=== PATIENT | female | born 1940 | race Caucasian/White ===

== ENCOUNTER 2021-11-18 09:02 | Inpatient (IN) | payer MEDICARE ==
[2021-11-18] VITALS (18 sets, daily range): BP systolic 84–123; BP diastolic 38–47
[~2021-11-18] VITALS: Ht 160 cm; Wt 73.6 kg
[~2021-11-18 09:02] MED LIST: etomidate 2mg/ml inj. ONE; sod chloride 0.9% 10ml flush syringe IV ONE
[2021-11-18 09:49] LABS: BASOPHILS # (AUTO) 0.1 X10'3 (0-0.2); BASOPHILS % (AUTO) 0.6 % (0-1); EOSINOPHILS % (AUTO) 0.1 % (0-6); HEMOGLOBIN 12.8 g/dl (12.0-16.0); LYMPHOCYTES # (AUTO) 0.4 X10'3 (1.1-4.8); LYMPHOCYTES % (AUTO) 1.9 % (21-51); MEAN CORPUSCULAR HEMOGLOBIN 27.7 PG (27.0-31.0); MEAN CORPUSCULAR HGB CONC 32.8 g/dL (33.0-36.5); MEAN CORPUSCULAR VOLUME 84.4 FL (78-98); MEAN PLATELET VOLUME 8.5 FL (7.4-10.4); MONOCYTES # (AUTO) 0.5 X10'3 (0-0.9); MONOCYTES % (AUTO) 2.6 % (2-12); NEUTROPHILS # (AUTO) 17.7 X10'3 (1.8-7.7); NEUTROPHILS % (AUTO) 94.8 % (42-75); PLATELET COUNT 199 X10'3 (140-440); RED BLOOD COUNT 4.62 X10'6 (4.20-5.60); RED CELL DISTRIBUTION WIDTH 15.7 % (11.5-14.5); WHITE BLOOD COUNT 18.7 X10'3 (4.5-11.0)
[2021-11-18 09:50] LABS: CLARITY,URINE CLOUDY (Clear); COLOR,URINE YELLOW (Yellow); GLUCOSE, URINE 250 mg/dl (Neg); KETONES,URINE TRACE mg/dl (Neg); LEUKOCYTE ESTERASE ,URINE MODERATE (Neg); NITRITES, URINE NEGATIVE (Neg); OCCULT BLOOD,URINE MODERATE (Neg); PROTEIN,URINE 100 mg/dl (Neg); UROBILINOGEN,URINE 0.2 E.U/dL (0.2-1.0)
[2021-11-18 09:52] LABS: UA COLLECTION TYPE CLN CATCH MIDSTREAM
[2021-11-18] MEDS ORDERED: morphine 4 MG/ML inj SYRINge IV ONE ×2 (09:55→11:35)
[2021-11-18] MEDS ORDERED: ondansetron/PF 4mg/2ml inj IV ONE (09:55)
[2021-11-18] MEDS ORDERED: normal saline 1000ml 1,000 ML IV ONE (09:55)
[2021-11-18 09:58] LABS: BACTERIA,URINE 1+ /HPF (Neg); MUCUS STRANDS FEW /LPF (Neg); SQUAMOUS EPITHELIAL CELL,UR MODERATE /LPF (FEW); WBC CLUMPS,URINE MODERATE /HPF (NEGATIVE); WBC,URINE TNTC /HPF (0-4)
[2021-11-18 09:59] LABS: TRANSITIONAL EPI CELLS,URINE FEW /HPF
[2021-11-18 10:18] LABS: ALANINE AMINOTRANSFERASE 25 U/L (12-78); ALBUMIN 3.8 G/DL (3.4-5.0); ALKALINE PHOSPHATASE 110 IU/L (46-116); ANION GAP 12 (8-16); ASPARTATE AMINO TRANSFERASE 35 U/L (10-37); BILIRUBIN,TOTAL 0.5 MG/DL (0.1-1.0); BLOOD UREA NITROGEN 16 MG/DL (7-18); BUN/CREATININE RATIO 17.2 (6.6-38.0); CALCIUM 9.2 MG/DL (8.5-10.1); CHLORIDE 102 MMOL/L (99-107); CREATININE 0.93 MG/DL (0.40-0.90); ETHANOL < 0.010 GM/DL (0.0-0.010); GLUCOSE 351 MG/DL (70-104); LIPASE 192 U/L (73-393); MAGNESIUM 1.6 MG/DL (1.5-2.4); POTASSIUM 3.8 MMOL/L (3.5-5.1); SODIUM 136 MMOL/L (135-145); TOTAL CARBON DIOXIDE 21.8 MMOL/L (24-32); TOTAL PROTEIN 7.8 G/DL (6.4-8.2); eGFR 58 ML/MIN
[2021-11-18] MEDS ORDERED: normal saline 1000ML IV soln IV ONE (10:25)
[2021-11-18] MEDS ORDERED: CefTRIAXone 2gm/NS 100ml IVPB 100 ML IV ONE (10:25)
[2021-11-18 10:27] LABS: ANISOCYTOSIS 1+; PLATELET ESTIMATE NORMAL; TOTAL CELLS COUNTED 100
--- NOTE | 2021-11-18 12:00 | NUR ---
Note samreen in EDM - 11/18/21 at 1231 by FARRAH Patient Oxygen saturation decreased to 68% on 2 L via NC with a good wave form with labored breathing, she became tachycardic at 130 beats/min. Patient lung sounds crackles bilaterally audible at doorway. Patient had received 2 L NS bolus for sepsis protocol. Jazmin Falcon NP in room with patient for assessment. NS bolus discontinued at this time.
--- NOTE | 2021-11-18 12:20 | NUR ---
Patient Oxygen saturation decreased to 68% on 2 L via NC with a good wave form with labored breathing, she became tachycardic at 130 beats/min. Patient lung sounds crackles bilaterally audible at doorway. Patient had received 2 L NS bolus for sepsis protocol. Jazmin Falcon PAPER MILL MANAGER in room with patient for assessment. NS bolus discontinued at this time.
--- NOTE | 2021-11-18 12:20 | NUR ---
Stopped IVF bolus and maintanace fluid. Total opdsacv=[id number].
--- NOTE | 2021-11-18 12:22 | NUR ---
Verbal orders placed for Bipap, ABG, ProBNP, Lasix 20 mg IVP one now, Ativan 1 mg IVP once now for anxiety when initiating Bipap. Per Ezekiel BELL. RT paged.
[2021-11-18] MEDS ORDERED: furosemide 10 MG/1 ML 10ml inj IV ONE (12:25)
[2021-11-18] MEDS ORDERED: LORazepam 2 mg/ml vial IV ONE (12:25)
[2021-11-18] MEDS ORDERED: morphine 2 MG/ML inj. syringe IV ONE (12:40)
[2021-11-18] MEDS ORDERED: nitroGLYCERIN 1gm ointment UD TP ONE (12:40)
[2021-11-18 12:57] LABS: ABG BASE EXCESS -14.6 mmol/L (-2.0-2.0); ABG HCO3 17.6 mmol/L (22.0-26.0); ABG OXYGEN SATURATION 98.4 % (94-97); ABG PCO2 (T) 70.4 mmHg (32.0-45.0); ABG PO2 (T) 169.8 mmHg (75.0-100.0); ALLEN'S TEST POSITIVE; FCOHb 0.6 % (0.0-3.9); FMetHb 0.3 % (0.0-1.5); FO2Hb 97.5 % (94-97); RESPIRATORY RATE 16 b/min
--- NOTE | 2021-11-18 13:20 | NUR ---
NTG paste removed from Chest wall due to low b/p.
[2021-11-18] MEDS ORDERED: propofol 10mg/ml 20ml vial IV ONE (13:25)
[2021-11-18] MEDS ORDERED: etomidate 2mg/ml inj. IV ONE (13:25)
[2021-11-18] MEDS ORDERED: succinylcholine 20mg/ml inj IV ONE (13:30)
[2021-11-18 13:32] LABS: ALBUMIN 3.5 G/DL (3.4-5.0); ANION GAP 15 (8-16); BLOOD UREA NITROGEN 15 MG/DL (7-18); BUN/CREATININE RATIO 12.5 (6.6-38.0); CALCIUM 8.2 MG/DL (8.5-10.1); CHLORIDE 104 MMOL/L (99-107); GLUCOSE 312 MG/DL (70-104); POTASSIUM 3.6 MMOL/L (3.5-5.1); SODIUM 139 MMOL/L (135-145); TOTAL CARBON DIOXIDE 19.7 MMOL/L (24-32); eGFR 43 ML/MIN
[2021-11-18] MEDS ORDERED: Neutra Phos packet PO PRN (13:40)
[2021-11-18] MEDS ORDERED: sodium phosphate inj. 15 MMOL in dextrose 5%-water 250 ML IV PRN (13:40)
[2021-11-18] MEDS ORDERED: magnesium hydroxide 30ml (MOM) UD suspension PO PRN (13:40)
[2021-11-18] MEDS ORDERED: potassium Cl 20 mEq SR tablet PO PRN ×2 (13:40)
[2021-11-18] MEDS ORDERED: sodium phosphate inj. 30 MMOL in dextrose 5%-water 250 ML IV PRN (13:40)
[2021-11-18] MEDS ORDERED: acetaminophen 325mg tablet PO PRN ×2 (13:40)
[2021-11-18] MEDS ORDERED: NOREPINEPHRINE BITARTRATE/D5W 250 ML IV PRN (13:40)
[2021-11-18] MEDS ORDERED: ondansetron/PF 4mg/2ml inj IV PRN (13:40)
[2021-11-18] MEDS: propofol 1000mg/100ml bottle 100 ML IV PRN (13:40)
[2021-11-18] MEDS ORDERED: morphine 4 MG/ML inj SYRINge IV PRN (13:40)
[2021-11-18] MEDS ORDERED: ipratropium/albuterol 3ml nebule NEB PRN (13:40)
[2021-11-18] MEDS ORDERED: morphine 2 MG/ML inj. syringe IV PRN (13:40)
[2021-11-18 14:27] LABS: PHOSPHORUS 4.1 MG/DL (2.3-4.5)
[2021-11-18 14:33] LABS: ABG BASE EXCESS -14.8 mmol/L (-2.0-2.0); ABG HCO3 12.1 mmol/L (22.0-26.0); ABG OXYGEN SATURATION 92.8 % (94-97); ABG PO2 (T) 77.5 mmHg (75.0-100.0); ALLEN'S TEST POSITIVE; FCOHb 0.8 % (0.0-3.9); FMetHb 0.2 % (0.0-1.5); FO2Hb 91.9 % (94-97); PEEP 8 cm H2O; RESPIRATORY RATE 20 b/min; TIDAL VOLUME 450 mL; TOTAL HEMOGLOBIN 14.3 G/dl (12.0-16.0)
[2021-11-18] MEDS: heparin, porcine 5000 units/ml vial SQ SCH (16:00)
[2021-11-18] MEDS: cefepime inj. 1 GM in normal saline 100ml IV soln 100 ML IV SCH (16:39)
[2021-11-18] MEDS ORDERED: NORepinephrine 8mg/ 250ml NS 250 ML IV ONE (16:45)
[2021-11-18] MEDS ORDERED: NORepinephrine inj. 8 MG in dextrose 5%-water 242 ML IV SCH (16:55)
[2021-11-18] MEDS ORDERED: iohexol 300 MG/1 ML 50ml polymer ONE (17:01)
[2021-11-18] MEDS ORDERED: rocuronium 10mg/ml inj IV ONE (18:00)
--- NOTE | 2021-11-18 18:30 | NUR ---
Patient in room ICU 2040. I have received report from MEÑO Joaquin and had the opportunity to ask questions and assume patient care.
[2021-11-18] MEDS ORDERED: acetaminophen 325mg/10.15ml oral unit dose solution PO PRN (19:05)
[2021-11-18 19:08] LABS: CLARITY,URINE CLOUDY (Clear); COLOR,URINE YELLOW (Yellow); GLUCOSE, URINE NEGATIVE (Neg); KETONES,URINE NEGATIVE (Neg); LEUKOCYTE ESTERASE ,URINE MODERATE (Neg); NITRITES, URINE NEGATIVE (Neg); OCCULT BLOOD,URINE MODERATE (Neg); PROTEIN,URINE 100 mg/dl (Neg); UROBILINOGEN,URINE 0.2 E.U/dL (0.2-1.0)
[2021-11-18 19:12] LABS: UA COLLECTION TYPE OTHER
[2021-11-18 19:24] LABS: BACTERIA,URINE FEW /HPF (Neg); RBC,URINE 20-50 /HPF (0-2); SQUAMOUS EPITHELIAL CELL,UR FEW /LPF (FEW); WBC,URINE TNTC /HPF (0-4)
[2021-11-18 19:25] LABS: WBC CLUMPS,URINE MODERATE /HPF (NEGATIVE)
[2021-11-18 19:44] LABS: MEAN CORPUSCULAR HEMOGLOBIN 27.5 PG (27.0-31.0); MEAN PLATELET VOLUME 9.7 FL (7.4-10.4)
[2021-11-18 19:45] LABS: HEMATOCRIT 38.7 % (35.0-45.0); HEMOGLOBIN 12.3 g/dl (12.0-16.0); MEAN CORPUSCULAR HGB CONC 31.9 g/dL (33.0-36.5); MEAN CORPUSCULAR VOLUME 86.2 FL (78-98); PLATELET COUNT 165 X10'3 (140-440); RED BLOOD COUNT 4.49 X10'6 (4.20-5.60); RED CELL DISTRIBUTION WIDTH 15.7 % (11.5-14.5)
[2021-11-18 19:49] LABS: APTT 37 SECONDS (22-32)
[2021-11-18 19:50] LABS: WHITE BLOOD COUNT 32.9 X10'3 (4.5-11.0)
[2021-11-18 19:51] LABS: ALANINE AMINOTRANSFERASE 23 U/L (12-78); ALBUMIN 2.6 G/DL (3.4-5.0); ALBUMIN/GLOBULIN RATIO 0.8 (1.1-1.5); ALKALINE PHOSPHATASE 109 IU/L (46-116); ANION GAP 15 (8-16); ASPARTATE AMINO TRANSFERASE 43 U/L (10-37); BILIRUBIN,TOTAL 0.5 MG/DL (0.1-1.0); BLOOD UREA NITROGEN 21 MG/DL (7-18); BUN/CREATININE RATIO 12.9 (6.6-38.0); CALCIUM 7.5 MG/DL (8.5-10.1); CHLORIDE 109 MMOL/L (99-107); CREATININE 1.63 MG/DL (0.40-0.90); GLUCOSE 232 MG/DL (70-104); POTASSIUM 3.9 MMOL/L (3.5-5.1); SODIUM 139 MMOL/L (135-145); eGFR 30 ML/MIN
[2021-11-18 19:53] LABS: TOTAL CARBON DIOXIDE 14.9 MMOL/L (24-32)
[2021-11-18 19:58] LABS: MAGNESIUM 1.4 MG/DL (1.5-2.4)
[2021-11-18] MEDS ORDERED: vancomycin/NS 1 GM ADD-VANTAGE 250 ML IV SCH (20:00)
[2021-11-18 20:20] LABS: ABG BASE EXCESS -13.5 mmol/L (-2.0-2.0); ABG HCO3 12.2 mmol/L (22.0-26.0); ABG PCO2 (T) 32.1 mmHg (32.0-45.0); ABG PO2 (T) 66.4 mmHg (75.0-100.0); FCOHb 0.3 % (0.0-3.9); FMetHb 0.4 % (0.0-1.5); FO2Hb 87.4 % (94-97); PATIENT TEMPERATURE 39.8; PEEP 8 cm H2O; RESPIRATORY RATE 16 b/min; TIDAL VOLUME 450 mL; TOTAL HEMOGLOBIN 13.3 G/dl (12.0-16.0)
[2021-11-18] MEDS ORDERED: furosemide 40mg/4ml inj IV ONE (20:55)
[2021-11-18] MEDS ORDERED: albumin (Human) 5% 250ml 250 ML IV ONE (20:55)
--- NOTE | 2021-11-18 21:04 | NUR ---
Tele MD called with all critical values and xray results, orders received.
[2021-11-18] MEDS: sennosides/docusate sodium tablet PO SCH (21:06)
[2021-11-18] MEDS: normal saline 1000ml 1,000 ML IV SCH (21:09)
[2021-11-18 21:28] LABS: ANISOCYTOSIS 1+; PLATELET ESTIMATE NORMAL; TOTAL CELLS COUNTED 100
[2021-11-18] MEDS: NORepinephrine 8mg/ 250ml NS 250 ML IV PRN (22:15)
[2021-11-18] MEDS: sodium bicarbonate (8.4%) inj. 150 MEQ in dextrose 5%-water 1,000 ML IV SCH (22:15)
[2021-11-19] VITALS (35 sets, daily range): BP systolic 84–122; BP diastolic 35–47
[2021-11-19] MEDS: heparin, porcine 5000 units/ml vial SQ SCH ×3 (00:32→16:25)
[2021-11-19] MEDS: propofol 1000mg/100ml bottle 100 ML IV PRN (00:39)
[2021-11-19] MEDS: cefepime inj. 1 GM in normal saline 100ml IV soln 100 ML IV SCH (00:53)
[2021-11-19] MEDS: normal saline 1000ml 1,000 ML IV SCH ×2 (03:00→16:26)
[2021-11-19] MEDS: NORepinephrine 8mg/ 250ml NS 250 ML IV PRN ×3 (03:11→09:02)
[2021-11-19 03:16] LABS: BASOPHILS # (AUTO) 0.1 X10'3 (0-0.2); BASOPHILS % (AUTO) 0.2 % (0-1); EOSINOPHILS % (AUTO) 0 % (0-6); HEMATOCRIT 34.1 % (35.0-45.0); HEMOGLOBIN 10.7 g/dl (12.0-16.0); LYMPHOCYTES # (AUTO) 0.9 X10'3 (1.1-4.8); LYMPHOCYTES % (AUTO) 2.2 % (21-51); MEAN CORPUSCULAR HGB CONC 31.4 g/dL (33.0-36.5); MEAN PLATELET VOLUME 10.5 FL (7.4-10.4); MONOCYTES # (AUTO) 1.9 X10'3 (0-0.9); MONOCYTES % (AUTO) 4.4 % (2-12); NEUTROPHILS # (AUTO) 40.6 X10'3 (1.8-7.7); NEUTROPHILS % (AUTO) 93.2 % (42-75); PLATELET COUNT 105 X10'3 (140-440); RED BLOOD COUNT 3.97 X10'6 (4.20-5.60)
[2021-11-19 03:17] LABS: WHITE BLOOD COUNT 43.5 X10'3 (4.5-11.0)
[2021-11-19 03:26] LABS: ALBUMIN 2.6 G/DL (3.4-5.0); ANION GAP 20 (8-16); BLOOD UREA NITROGEN 25 MG/DL (7-18); BUN/CREATININE RATIO 11.5 (6.6-38.0); CALCIUM 7.5 MG/DL (8.5-10.1); CHLORIDE 106 MMOL/L (99-107); CREATININE 2.17 MG/DL (0.40-0.90); GLUCOSE 186 MG/DL (70-104); PHOSPHORUS 3.9 MG/DL (2.3-4.5); POTASSIUM 3.7 MMOL/L (3.5-5.1); SODIUM 140 MMOL/L (135-145); TRIGLYCERIDES 256 MG/DL (20-135); eGFR 22 ML/MIN
[2021-11-19 03:28] LABS: TOTAL CARBON DIOXIDE 14.3 MMOL/L (24-32)
[2021-11-19 03:29] LABS: ABG BASE EXCESS -13.2 mmol/L (-2.0-2.0); ABG HCO3 11.7 mmol/L (22.0-26.0); ABG OXYGEN SATURATION 94.9 % (94-97); ABG PCO2 (T) 26.4 mmHg (32.0-45.0); ABG PO2 (T) 84.4 mmHg (75.0-100.0); FCOHb 0.3 % (0.0-3.9); FMetHb 0.2 % (0.0-1.5); FO2Hb 94.4 % (94-97); PATIENT TEMPERATURE 38.3; PEEP 10 cm H2O; RESPIRATORY RATE 16 b/min; TIDAL VOLUME 450 mL; TOTAL HEMOGLOBIN 11.6 G/dl (12.0-16.0)
[2021-11-19] MEDS: magnesium 4gm in 100ml NS 100 ML IV PRN (03:37)
--- NOTE | 2021-11-19 03:40 | NUR ---
Tele MD notified of worsening pneumo, he ordered a chest tube, he will call ER Doc to see if he is willing to put a chest tube in.
[2021-11-19] MEDS ORDERED: sodium bicarbonate (8.4%) 1 mEq/ml syringe IV ONE ×3 (05:05→12:15)
[2021-11-19 05:13] LABS: ANISOCYTOSIS 1+; PLATELET ESTIMATE DECREASED; POLYCHROMASIA FEW; TOTAL CELLS COUNTED 100
[2021-11-19] MEDS ORDERED: fentaNYL/PF 50MCG/1 ML 2ML syringe ONE (05:53)
[2021-11-19] MEDS ORDERED: midazolam 1 mg/ML 2ml injection ONE (05:53)
[2021-11-19] MEDS ORDERED: midazolam 1 mg/ML 2ml injection IV ONE ×3 (06:05→06:45)
[2021-11-19] MEDS ORDERED: normal saline 1000ml 1,000 ML IV ONE (06:30)
--- NOTE | 2021-11-19 06:30 | NUR ---
Patient in room ICU 2040. I have received report from Bobbi WILDER and had the opportunity to ask questions and assume patient care.
[2021-11-19] MEDS ORDERED: fentaNYL/PF 50MCG/1 ML 2ML syringe IV PRN (06:40)
[2021-11-19] MEDS ORDERED: FENTANYL CITRATE/D5W/PF 100 ML IV PRN (06:40)
[2021-11-19] MEDS ORDERED: fentaNYL/PF 50MCG/1 ML 2ML syringe IV ONE (06:45)
[2021-11-19] MEDS ORDERED: FENTANYL-0.9 % NACL/PF 100 ML IV PRN (06:48)
--- NOTE | 2021-11-19 06:53 | NUR ---
Problems reprioritized. Patient report given, questions answered & plan of care reviewed with MEÑO Herrera.
[2021-11-19] MEDS: midazolam 100mg in NS 100ml 100 ML IV PRN (06:54)
[2021-11-19] MEDS: FENTANYL-0.9 % NACL/PF 100 ML IV PRN ×2 (06:54→23:01)
[2021-11-19] MEDS ORDERED: pantoprazole 40mg Tablet.DR PO SCH (07:30)
[2021-11-19] MEDS: K and/or MAG REPLACEMENT MC SCH (08:00)
[2021-11-19] MEDS ORDERED: meropenem inj 1 GM in normal saline 100ml IV soln 100 ML IV SCH (08:00)
--- NOTE | 2021-11-19 08:58 | NUR ---
Pt with decreasing spo2. pt repositioned, suctioned, without positive result. Dr. Adrian at bedside. new order for stat cxr. stat cxr revealed return of pneumothorax and chest tube needing repositioning. Dr. Adrian immediately to bedside to adjust chest tube. post adjustment CXR ordered. Radiology paged. Addendum: 11/19/21 at 0918 by Mary Elder RN CXR revealed need for tube to be inserted additionally. Dr. Adrian at bedside, performed chest tube adjustment. F/U CXR done. tube with adequate positioning. cxt sutured. measures 12 at the skin.
[2021-11-19] MEDS: magnesium 2GM in 50ml NS 50 ML IV PRN (09:02)
[2021-11-19] MEDS: vasopressin inj. 40 UNIT in dextrose 5%-water 50ml 38 ML IV SCH ×2 (09:03→14:27)
[2021-11-19] MEDS: sodium bicarbonate (8.4%) inj. 150 MEQ in dextrose 5%-water 1,000 ML IV SCH (09:24)
[2021-11-19] MEDS ORDERED: insulin Lispro (HumaLOG) vial - multi-dose SQ SCH (09:55)
[2021-11-19] MEDS ORDERED: dextrose 50%-water 50ml dispensing syringe IV PRN ×2 (09:55)
[2021-11-19] MEDS ORDERED: DEXTROSE 15 GM of carb/4 tabs (each vial/BOTTLE has 4 tablets) PO PRN ×2 (09:55)
[2021-11-19] MEDS: NORepinephrine inj. 32 MG in normal saline 250ml IV soln 218 ML IV SCH ×2 (10:40→20:35)
[2021-11-19] MEDS: pantoprazole 40MG/NS 100ML BAG 100 ML IV SCH (10:40)
[2021-11-19] MEDS ORDERED: NO HOME MEDS (11:09)
--- NOTE | 2021-11-19 11:18 | NUR ---
TF Consult: Pt admitted w/ metabolic encephalopathy, septic shock, acute respiratory failure, and hydronephrosis per EMR. Pt is mechanically ventilated, and has an OG tube per RN at rounds. See TF recs below. Noted pt currently receiving Sodium Bicarbonate/Dextrose at 100 mL/hr providing 408 kcal/day. Discussed w/ RN if possible to change to non-dextrose containing fluid as pt will be starting TF. Pt LBM not documented per physical assessment, though is receiving routine senna per EMR. Will continue to follow for TF tolerance and adjustment needs. Recommendations: 1. Continuous TF per MD using Vital AF at 65 ml/hr to provide 1560mL volume, 1872 kcals, 117g protein, and 1265 free water 2. Additional water flush 100mL Q4H; monitor serum Na 3. PALB Q / 4. Daily wts 5. Routine bowel care 6. Advance to Regular diet upon extubation; consider BSS Addendum: 11/19/21 at [address] I have reviewed assessment by risk management intern Addendum: 11/19/21 at [address] Amended: Links added.
[2021-11-19] MEDS ORDERED: sodium bicarbonate (8.4%) inj. 150 MEQ in sodium chloride 0.45% 850 ML IV SCH (11:50)
[2021-11-19 11:57] LABS: ABG BASE EXCESS -12.5 mmol/L (-2.0-2.0); ABG HCO3 13.3 mmol/L (22.0-26.0); ABG OXYGEN SATURATION 87.5 % (94-97); ABG PCO2 (T) 31.4 mmHg (32.0-45.0); ABG PO2 (T) 62.2 mmHg (75.0-100.0); FCOHb 0.3 % (0.0-3.9); FMetHb 0.2 % (0.0-1.5); FO2Hb 87.1 % (94-97); PATIENT TEMPERATURE 37.9; PEEP 5 cm H2O; RESPIRATORY RATE 16 b/min; TIDAL VOLUME 450 mL; TOTAL HEMOGLOBIN 10.9 G/dl (12.0-16.0)
[2021-11-19] MEDS ORDERED: ringers solution, lacted 1,000 ML IV ONE ×2 (12:10→17:35)
[2021-11-19] MEDS: sodium bicarbonate (8.4%) inj. 150 MEQ in sodium chloride 0.45% 1,000 ML IV SCH ×3 (13:13)
[2021-11-19 13:37] LABS: ALBUMIN 1.9 G/DL (3.4-5.0); ANION GAP 20 (8-16); BLOOD UREA NITROGEN 30 MG/DL (7-18); BUN/CREATININE RATIO 12.4 (6.6-38.0); CALCIUM 6.9 MG/DL (8.5-10.1); CHLORIDE 105 MMOL/L (99-107); CREATININE 2.42 MG/DL (0.40-0.90); GLUCOSE 234 MG/DL (70-104); MAGNESIUM 3.2 MG/DL (1.5-2.4); PHOSPHORUS 4.4 MG/DL (2.3-4.5); POTASSIUM 3.9 MMOL/L (3.5-5.1); SODIUM 143 MMOL/L (135-145); TOTAL CARBON DIOXIDE 17.7 MMOL/L (24-32); eGFR 19 ML/MIN
[2021-11-19] MEDS: insulin regular, human U-100 3ml vial - multi-dose SQ SCH ×2 (14:31→21:42)
[2021-11-19 15:30] LABS: PREALBUMIN 13.3 MG/DL (19-36)
[2021-11-19] MEDS: acetaminophen 650mg rectal suppository RC PRN (16:27)
--- NOTE | 2021-11-19 17:31 | NUR ---
Called Dr. Adrian with critical lactic Acid: 8.3 new orders received: 1Lbolus GUS d/c NS at 75. start LR @ 125. get ionized calcium repeat lactic acid at 0300 with morning labs. Addendum: 11/19/21 at 1743 by Mary Elder RN pt's daughter Anny [phone] called and updated.
[2021-11-19] MEDS ORDERED: vasopressin inj. 40 UNIT in normal saline 50ml IV soln 38 ML IV SCH (18:13)
--- NOTE | 2021-11-19 18:30 | NUR ---
Problems reprioritized. Patient report given, questions answered & plan of care reviewed with Donna WILDER.
[2021-11-19] MEDS: ringers solution, lacted 1,000 ML IV SCH (18:50)
[2021-11-19] MEDS: meropenem inj 500 MG in normal saline 100ml IV soln 100 ML IV SCH (20:34)
[2021-11-19] MEDS: hydrocortisone sod succ/PF 100mg/2ml inj. IV SCH (20:34)
[2021-11-19] MEDS: sennosides/docusate sodium tablet PO SCH (20:34)
[2021-11-19] MEDS: insulin glargine (Lantus) pen - multi-dose SQ SCH (21:40)
[2021-11-20] VITALS (42 sets, daily range): BP systolic 87–140; BP diastolic 34–68
[2021-11-20] MEDS: heparin, porcine 5000 units/ml vial SQ SCH ×4 (00:31→16:00)
[2021-11-20] MEDS: ringers solution, lacted 1,000 ML IV SCH ×3 (01:35→17:40)
[2021-11-20] MEDS: acetaminophen 650mg rectal suppository RC PRN ×2 (01:41→17:39)
[2021-11-20] MEDS: hydrocortisone sod succ/PF 100mg/2ml inj. IV SCH ×4 (02:07→20:00)
[2021-11-20 02:36] LABS: BASOPHILS # (AUTO) 0.1 X10'3 (0-0.2); BASOPHILS % (AUTO) 0.2 % (0-1); EOSINOPHILS # (AUTO) 0.2 X10'3 (0-0.9); EOSINOPHILS % (AUTO) 0.6 % (0-6); HEMOGLOBIN 9.3 g/dl (12.0-16.0); LYMPHOCYTES # (AUTO) 0.7 X10'3 (1.1-4.8); LYMPHOCYTES % (AUTO) 2.6 % (21-51); MEAN CORPUSCULAR HEMOGLOBIN 27.2 PG (27.0-31.0); MEAN CORPUSCULAR HGB CONC 32.2 g/dL (33.0-36.5); MEAN CORPUSCULAR VOLUME 84.7 FL (78-98); MEAN PLATELET VOLUME 10.5 FL (7.4-10.4); MONOCYTES # (AUTO) 1.3 X10'3 (0-0.9); MONOCYTES % (AUTO) 4.5 % (2-12); NEUTROPHILS # (AUTO) 25.9 X10'3 (1.8-7.7); NEUTROPHILS % (AUTO) 92.1 % (42-75); PLATELET COUNT 79 X10'3 (140-440); RED BLOOD COUNT 3.43 X10'6 (4.20-5.60); RED CELL DISTRIBUTION WIDTH 16.1 % (11.5-14.5)
[2021-11-20] MEDS: insulin regular, human U-100 3ml vial - multi-dose SQ SCH ×4 (02:44→21:41)
[2021-11-20 02:53] LABS: ABG BASE EXCESS 1.2 mmol/L (-2.0-2.0); ABG HCO3 25.4 mmol/L (22.0-26.0); ABG OXYGEN SATURATION 92.1 % (94-97); ABG PCO2 (T) 40.9 mmHg (32.0-45.0); ABG PO2 (T) 68.9 mmHg (75.0-100.0); FCOHb 0.2 % (0.0-3.9); FMetHb 0.2 % (0.0-1.5); FO2Hb 91.7 % (94-97); PATIENT TEMPERATURE 38.1; PEEP 8 cm H2O; RESPIRATORY RATE 16 b/min; TIDAL VOLUME 450 mL; TOTAL HEMOGLOBIN 10.7 G/dl (12.0-16.0)
[2021-11-20 02:53] LABS: WHITE BLOOD COUNT 28.2 X10'3 (4.5-11.0)
[2021-11-20 03:00] LABS: GLUCOSE 214 MG/DL (70-104); SODIUM 141 MMOL/L (135-145)
[2021-11-20 03:01] LABS: ANION GAP 14 (8-16); BLOOD UREA NITROGEN 36 MG/DL (7-18); BUN/CREATININE RATIO 15.5 (6.6-38.0); CALCIUM 6.9 MG/DL (8.5-10.1); CHLORIDE 104 MMOL/L (99-107); CREATININE 2.33 MG/DL (0.40-0.90); MAGNESIUM 2.8 MG/DL (1.5-2.4); PHOSPHORUS 4.9 MG/DL (2.3-4.5); TOTAL CARBON DIOXIDE 23.2 MMOL/L (24-32); eGFR 20 ML/MIN
[2021-11-20 03:09] LABS: POTASSIUM 4.4 MMOL/L (3.5-5.1)
[2021-11-20 04:03] LABS: TOTAL CELLS COUNTED 100
[2021-11-20 04:04] LABS: ANISOCYTOSIS 1+; PLATELET ESTIMATE DECREASED; POLYCHROMASIA FEW
[2021-11-20] MEDS: vasopressin inj. 40 UNIT in normal saline 50ml IV soln 38 ML IV SCH ×2 (04:05→13:44)
[2021-11-20] MEDS: CALCIUM GLUC 1gm/50ml NACL,iso 50 ML IV SCH ×2 (05:51→06:59)
--- NOTE | 2021-11-20 06:30 | NUR ---
Patient in room ICU 2040. I have received report from Donna WILDER and had the opportunity to ask questions and assume patient care. VS currently stable. lines patent. pt intubated. chest rising and falling evenly. safety measures in place.
[2021-11-20] MEDS: meropenem inj 500 MG in normal saline 100ml IV soln 100 ML IV SCH (06:59)
[2021-11-20] MEDS: pantoprazole 40MG/NS 100ML BAG 100 ML IV SCH (06:59)
[2021-11-20] MEDS: K and/or MAG REPLACEMENT MC SCH (07:04)
[2021-11-20] MEDS: sodium bicarbonate (8.4%) inj. 150 MEQ in sodium chloride 0.45% 1,000 ML IV SCH ×2 (10:58→22:08)
[2021-11-20] MEDS: midazolam 100mg in NS 100ml 100 ML IV PRN (11:09)
[2021-11-20] MEDS ORDERED: polyethylene glycol 3350 17gm powd pack PO SCH (11:46)
[2021-11-20] MEDS ORDERED: polyethylene glycol 3350 17gm powd pack PO PRN (13:40)
[2021-11-20] MEDS ORDERED: bisacodyl 10mg suppository rectal RC PRN (13:40)
[2021-11-20 15:39] LABS: ALBUMIN 1.8 G/DL (3.4-5.0); ANION GAP 15 (8-16); BLOOD UREA NITROGEN 45 MG/DL (7-18); BUN/CREATININE RATIO 20.2 (6.6-38.0); CALCIUM 7.2 MG/DL (8.5-10.1); CHLORIDE 105 MMOL/L (99-107); CREATININE 2.23 MG/DL (0.40-0.90); GLUCOSE 236 MG/DL (70-104); POTASSIUM 4.3 MMOL/L (3.5-5.1); SODIUM 142 MMOL/L (135-145); TOTAL CARBON DIOXIDE 22.5 MMOL/L (24-32); eGFR 21 ML/MIN
--- NOTE | 2021-11-20 18:37 | NUR ---
Problems reprioritized. Patient report given, questions answered & plan of care reviewed with Donna WILDER.
[2021-11-20] MEDS: mineral oil/petrolatum ophthal oint EACHEYE SCH (20:00)
[2021-11-20] MEDS: FENTANYL-0.9 % NACL/PF 100 ML IV PRN (21:30)
[2021-11-20] MEDS: insulin glargine (Lantus) pen - multi-dose SQ SCH (21:47)
[2021-11-20] MEDS: sennosides/docusate sodium tablet PO SCH (21:50)
[2021-11-21] VITALS (34 sets, daily range): BP systolic 99–136; BP diastolic 39–62
[2021-11-21] MEDS: acetaminophen 650mg rectal suppository RC PRN (01:00)
[2021-11-21] MEDS: ringers solution, lacted 1,000 ML IV SCH ×3 (01:35→12:38)
[2021-11-21] MEDS: hydrocortisone sod succ/PF 100mg/2ml inj. IV SCH ×4 (02:45→20:27)
[2021-11-21] MEDS: mineral oil/petrolatum ophthal oint EACHEYE SCH ×4 (02:45→20:27)
[2021-11-21] MEDS: insulin regular, human U-100 3ml vial - multi-dose SQ SCH ×4 (02:49→20:35)
[2021-11-21 03:01] LABS: BASOPHILS % (AUTO) 0.1 % (0-1); EOSINOPHILS # (AUTO) 0.6 X10'3 (0-0.9); EOSINOPHILS % (AUTO) 1.8 % (0-6); HEMATOCRIT 33.1 % (35.0-45.0); HEMOGLOBIN 10.4 g/dl (12.0-16.0); LYMPHOCYTES % (AUTO) 2.9 % (21-51); MEAN CORPUSCULAR HEMOGLOBIN 26.5 PG (27.0-31.0); MEAN CORPUSCULAR HGB CONC 31.5 g/dL (33.0-36.5); MEAN CORPUSCULAR VOLUME 84.1 FL (78-98); MONOCYTES # (AUTO) 1.3 X10'3 (0-0.9); MONOCYTES % (AUTO) 3.7 % (2-12); NEUTROPHILS # (AUTO) 32.3 X10'3 (1.8-7.7); NEUTROPHILS % (AUTO) 91.5 % (42-75); PLATELET COUNT 84 X10'3 (140-440); RED BLOOD COUNT 3.94 X10'6 (4.20-5.60)
[2021-11-21 03:10] LABS: ALBUMIN 1.8 G/DL (3.4-5.0); ANION GAP 12 (8-16); BLOOD UREA NITROGEN 52 MG/DL (7-18); BUN/CREATININE RATIO 23.5 (6.6-38.0); CALCIUM 7.4 MG/DL (8.5-10.1); CHLORIDE 105 MMOL/L (99-107); CREATININE 2.21 MG/DL (0.40-0.90); GLUCOSE 276 MG/DL (70-104); PHOSPHORUS 4.4 MG/DL (2.3-4.5); POTASSIUM 4.2 MMOL/L (3.5-5.1); SODIUM 140 MMOL/L (135-145); TOTAL CARBON DIOXIDE 23.2 MMOL/L (24-32); eGFR 21 ML/MIN
[2021-11-21 03:22] LABS: WHITE BLOOD COUNT 35.2 X10'3 (4.5-11.0)
[2021-11-21 03:24] LABS: MAGNESIUM 2.9 MG/DL (1.5-2.4)
[2021-11-21 04:18] LABS: ABG BASE EXCESS -1.2 mmol/L (-2.0-2.0); ABG HCO3 22.3 mmol/L (22.0-26.0); ABG OXYGEN SATURATION 91.9 % (94-97); ABG PCO2 (T) 35.3 mmHg (32.0-45.0); ABG PO2 (T) 69.8 mmHg (75.0-100.0); FCOHb 0.3 % (0.0-3.9); FMetHb 0.3 % (0.0-1.5); FO2Hb 91.3 % (94-97); PATIENT TEMPERATURE 38.2; PEEP 8 cm H2O; RESPIRATORY RATE 16 b/min; TIDAL VOLUME 450 mL
[2021-11-21 04:51] LABS: PLATELET ESTIMATE DECREASED; TOTAL CELLS COUNTED 100
[2021-11-21 04:52] LABS: ANISOCYTOSIS FEW; ELLIPTOCYTES FEW; POLYCHROMASIA FEW
--- NOTE | 2021-11-21 05:00 | NUR ---
Bedside tele visit completed with Dr. Toribio. Updates given critical lab reviewed.
--- NOTE | 2021-11-21 06:20 | NUR ---
Problems reprioritized. Patient report given, questions answered & plan of care reviewed
[2021-11-21] MEDS: K and/or MAG REPLACEMENT MC SCH (07:20)
[2021-11-21] MEDS: heparin, porcine 5000 units/ml vial SQ SCH ×2 (08:00→14:23)
[2021-11-21] MEDS: pantoprazole 40MG/NS 100ML BAG 100 ML IV SCH (09:02)
[2021-11-21] MEDS: CEFTRIAXONE IV SCH (09:02)
[2021-11-21] MEDS: [UNRECOGNIZED DRUG - OTHER] IV SCH (09:02)
[2021-11-21] MEDS: vasopressin inj. 40 UNIT in normal saline 50ml IV soln 38 ML IV SCH (09:24)
[2021-11-21] MEDS: NORepinephrine inj. 32 MG in normal saline 250ml IV soln 218 ML IV SCH (10:05)
--- NOTE | 2021-11-21 11:23 | NUR ---
DM Consult: Pt A1C 8.3% w/ no prior hx DM per EMR or home DM meds per clinical pharmacist. Pt would benefit from DM ed when appropriate following extubation once pt made aware of DM per physician. Recommendations: 1. Continuous TF per MD using Vital AF at 65 ml/hr to provide 1560mL volume, 1872 kcals, 117g protein, and 1265 free water 2. Additional water flush 100mL Q4H; monitor serum Na 3. PALB Q / 4. Daily wts 5. Routine bowel care 6. Advance to carb controlled diet upon extubation; consider BSS 7. DM ed when appropriate following extubation once pt made aware of DM per physician.; A1C 8.3% w/ no prior hx or home DM meds per EMR Addendum: 11/21/21 at [address] Amended: Links added.
[2021-11-21] MEDS: insulin glargine (Lantus) pen - multi-dose SQ SCH (20:36)
[2021-11-22] VITALS (36 sets, daily range): BP systolic 95–171; BP diastolic 50–88
[2021-11-22] MEDS: heparin, porcine 5000 units/ml vial SQ SCH
[2021-11-22] MEDS: ringers solution, lacted 1,000 ML IV SCH ×2 (01:47→09:35)
[2021-11-22] MEDS: mineral oil/petrolatum ophthal oint EACHEYE SCH ×4 (02:03→20:00)
[2021-11-22] MEDS: hydrocortisone sod succ/PF 100mg/2ml inj. IV SCH ×4 (02:06→20:24)
[2021-11-22] MEDS: insulin regular, human U-100 3ml vial - multi-dose SQ SCH ×4 (02:08→21:32)
[2021-11-22 02:46] LABS: BASOPHILS % (AUTO) 0.2 % (0-1); EOSINOPHILS # (AUTO) 0.1 X10'3 (0-0.9); EOSINOPHILS % (AUTO) 0.4 % (0-6); HEMATOCRIT 31.3 % (35.0-45.0); HEMOGLOBIN 9.9 g/dl (12.0-16.0); LYMPHOCYTES # (AUTO) 0.9 X10'3 (1.1-4.8); LYMPHOCYTES % (AUTO) 4.4 % (21-51); MEAN CORPUSCULAR HEMOGLOBIN 26.8 PG (27.0-31.0); MEAN CORPUSCULAR HGB CONC 31.6 g/dL (33.0-36.5); MEAN CORPUSCULAR VOLUME 84.8 FL (78-98); MEAN PLATELET VOLUME 10.1 FL (7.4-10.4); MONOCYTES # (AUTO) 0.7 X10'3 (0-0.9); MONOCYTES % (AUTO) 3.6 % (2-12); NEUTROPHILS # (AUTO) 18.3 X10'3 (1.8-7.7); NEUTROPHILS % (AUTO) 91.4 % (42-75); RED BLOOD COUNT 3.69 X10'6 (4.20-5.60); RED CELL DISTRIBUTION WIDTH 16.2 % (11.5-14.5); WHITE BLOOD COUNT 20.1 X10'3 (4.5-11.0)
[2021-11-22 02:55] LABS: ALBUMIN 1.5 G/DL (3.4-5.0); ANION GAP 11 (8-16); BLOOD UREA NITROGEN 60 MG/DL (7-18); CALCIUM 7.3 MG/DL (8.5-10.1); CHLORIDE 106 MMOL/L (99-107); CREATININE 1.62 MG/DL (0.40-0.90); GLUCOSE 311 MG/DL (70-104); MAGNESIUM 2.7 MG/DL (1.5-2.4); PHOSPHORUS 2.7 MG/DL (2.3-4.5); PREALBUMIN 9.2 MG/DL (19-36); SODIUM 140 MMOL/L (135-145); TOTAL CARBON DIOXIDE 23.4 MMOL/L (24-32); eGFR 31 ML/MIN
[2021-11-22 02:56] LABS: POTASSIUM 3.6 MMOL/L (3.5-5.1)
[2021-11-22 02:57] LABS: PLATELET COUNT 47 X10'3 (140-440)
[2021-11-22 03:24] LABS: ABG BASE EXCESS 0.1 mmol/L (-2.0-2.0); ABG HCO3 23.1 mmol/L (22.0-26.0); ABG OXYGEN SATURATION 89.4 % (94-97); ABG PCO2 (T) 32.2 mmHg (32.0-45.0); ABG PO2 (T) 58.1 mmHg (75.0-100.0); FCOHb 0.3 % (0.0-3.9); FMetHb 0.2 % (0.0-1.5); PEEP 8 cm H2O; RESPIRATORY RATE 16 b/min; TIDAL VOLUME 450 mL; TOTAL HEMOGLOBIN 11.5 G/dl (12.0-16.0)
[2021-11-22 04:22] LABS: PLATELET ESTIMATE DECREASED; TOTAL CELLS COUNTED 100
[2021-11-22 04:23] LABS: ANISOCYTOSIS 1+; POLYCHROMASIA FEW
[2021-11-22 04:24] LABS: ELLIPTOCYTES FEW
[2021-11-22] MEDS: CEFTRIAXONE IV SCH (07:16)
[2021-11-22] MEDS: pantoprazole 40MG/NS 100ML BAG 100 ML IV SCH (07:16)
[2021-11-22] MEDS: [UNRECOGNIZED DRUG - OTHER] IV SCH (07:16)
[2021-11-22] MEDS ORDERED: furosemide 40mg/4ml inj IV ONE (11:16)
[2021-11-22] MEDS: insulin glargine (Lantus) pen - multi-dose SQ SCH ×2 (11:23→21:31)
--- NOTE | 2021-11-22 11:54 | NUR ---
F/u 11/22: Pt remains intubated tolerating TF at goal. LBM 11/21 large per EMR. Glu 297-311mg/dl on glycemic protocol w/ Lantus to change to BID per merchandiser retail representative at rounds. RD notified merchandiser retail representative of pt A1C 8.3% and no prior DM hx; merchandiser retail representative agrees will need to be addressed long-term. Will continue to monitor. Recommendations: 1. Continuous TF per MD using Vital AF at 65 ml/hr to provide 1560mL volume, 1872 kcals, 117g protein, and 1265 free water 2. Additional water flush 100mL Q4H; monitor serum Na 3. PALB Q /; Daily wts 4. Routine bowel care 5. Advance to carb controlled diet upon extubation; consider BSS 6. DM ed when appropriate following extubation once pt made aware of DM per physician.; A1C 8.3% w/ no prior hx or home DM meds per EMR Addendum: 11/22/21 at [address] Amended: Links added.
[2021-11-23] VITALS (45 sets, daily range): BP systolic 80–209; BP diastolic 34–80
[2021-11-23] MEDS: hydrocortisone sod succ/PF 100mg/2ml inj. IV SCH ×4 (02:12→20:12)
[2021-11-23] MEDS: mineral oil/petrolatum ophthal oint EACHEYE SCH ×4 (02:12→20:12)
[2021-11-23] MEDS: insulin regular, human U-100 3ml vial - multi-dose SQ SCH ×4 (02:24→20:24)
[2021-11-23 03:27] LABS: BASOPHILS % (AUTO) 0.1 % (0-1); EOSINOPHILS % (AUTO) 0.1 % (0-6); HEMOGLOBIN 9.6 g/dl (12.0-16.0); LYMPHOCYTES # (AUTO) 1.1 X10'3 (1.1-4.8); MEAN CORPUSCULAR HEMOGLOBIN 26.8 PG (27.0-31.0); MEAN CORPUSCULAR HGB CONC 31.9 g/dL (33.0-36.5); MEAN CORPUSCULAR VOLUME 84.2 FL (78-98); MEAN PLATELET VOLUME 10.8 FL (7.4-10.4); MONOCYTES % (AUTO) 5.5 % (2-12); NEUTROPHILS # (AUTO) 16.2 X10'3 (1.8-7.7); NEUTROPHILS % (AUTO) 88.3 % (42-75); RED BLOOD COUNT 3.56 X10'6 (4.20-5.60); RED CELL DISTRIBUTION WIDTH 15.8 % (11.5-14.5); WHITE BLOOD COUNT 18.3 X10'3 (4.5-11.0)
[2021-11-23 03:29] LABS: ALBUMIN 1.6 G/DL (3.4-5.0); ANION GAP 8 (8-16); BLOOD UREA NITROGEN 61 MG/DL (7-18); BUN/CREATININE RATIO 48.8 (6.6-38.0); CALCIUM 7.6 MG/DL (8.5-10.1); CHLORIDE 109 MMOL/L (99-107); CREATININE 1.25 MG/DL (0.40-0.90); GLUCOSE 215 MG/DL (70-104); MAGNESIUM 2.3 MG/DL (1.5-2.4); PHOSPHORUS 1.8 MG/DL (2.3-4.5); SODIUM 144 MMOL/L (135-145); TOTAL CARBON DIOXIDE 26.8 MMOL/L (24-32); eGFR 41 ML/MIN
[2021-11-23 03:32] LABS: PLATELET COUNT 40 X10'3 (140-440)
[2021-11-23 03:34] LABS: POTASSIUM 2.8 MMOL/L (3.5-5.1)
[2021-11-23] MEDS: potassium CL 10mEq/100ml bag 100 ML IV PRN ×2 (03:46→04:45)
[2021-11-23 03:49] LABS: ABG BASE EXCESS -0.3 mmol/L (-2.0-2.0); ABG HCO3 22.4 mmol/L (22.0-26.0); ABG OXYGEN SATURATION 88.2 % (94-97); ABG PCO2 (T) 30.2 mmHg (32.0-45.0); ALLEN'S TEST POSITIVE; FCOHb 0.2 % (0.0-3.9); FMetHb 0.1 % (0.0-1.5); FO2Hb 87.9 % (94-97); PATIENT TEMPERATURE 36.8; PEEP 8 cm H2O; RESPIRATORY RATE 16 b/min; TIDAL VOLUME 450 mL; TOTAL HEMOGLOBIN 11.2 G/dl (12.0-16.0)
[2021-11-23 04:05] LABS: NUCLEATED RED BLOOD CELLS 2 /100WBC (0-0); PLATELET ESTIMATE DECREASED; TOTAL CELLS COUNTED 100
[2021-11-23 04:06] LABS: ANISOCYTOSIS FEW; ELLIPTOCYTES FEW; LARGE PLATELETS FEW; POLYCHROMASIA FEW
[2021-11-23] MEDS ORDERED: furosemide 40 MG/4 ML oral solution UD cup PO ONE (05:10)
[2021-11-23] MEDS: ringers solution, lacted 1,000 ML IV SCH (05:33)
[2021-11-23] MEDS: potassium Cl 20mEq/100mL bag 100 ML IV PRN ×2 (07:37→08:45)
[2021-11-23] MEDS: [UNRECOGNIZED DRUG - OTHER] IV SCH (07:38)
[2021-11-23] MEDS: CEFTRIAXONE IV SCH (07:38)
[2021-11-23] MEDS: pantoprazole 40MG/NS 100ML BAG 100 ML IV SCH (07:39)
[2021-11-23] MEDS: furosemide 40mg/4ml inj IV SCH ×2 (07:39→20:12)
[2021-11-23] MEDS: insulin glargine (Lantus) pen - multi-dose SQ SCH ×2 (07:41→20:26)
[2021-11-23] MEDS: NORepinephrine inj. 32 MG in normal saline 250ml IV soln 218 ML IV SCH (07:42)
[2021-11-23] MEDS: midazolam 100mg in NS 100ml 100 ML IV PRN (09:58)
[2021-11-23 11:02] LABS: ABG BASE EXCESS 2.9 mmol/L (-2.0-2.0); ABG OXYGEN SATURATION 90.7 % (94-97); ABG PCO2 (T) 34.8 mmHg (32.0-45.0); ABG PO2 (T) 58.1 mmHg (75.0-100.0); FCOHb 0.3 % (0.0-3.9); FMetHb 0.3 % (0.0-1.5); FO2Hb 90.2 % (94-97); PEEP 8 cm H2O; RESPIRATORY RATE 16 b/min; TIDAL VOLUME 450 mL; TOTAL HEMOGLOBIN 11.9 G/dl (12.0-16.0)
[2021-11-23 11:37] LABS: ALBUMIN 1.8 G/DL (3.4-5.0); ANION GAP 7 (8-16); BLOOD UREA NITROGEN 61 MG/DL (7-18); BUN/CREATININE RATIO 57.5 (6.6-38.0); CALCIUM 7.6 MG/DL (8.5-10.1); CHLORIDE 112 MMOL/L (99-107); CREATININE 1.06 MG/DL (0.40-0.90); GLUCOSE 163 MG/DL (70-104); POTASSIUM 3.8 MMOL/L (3.5-5.1); SODIUM 147 MMOL/L (135-145); TOTAL CARBON DIOXIDE 28.2 MMOL/L (24-32); eGFR 50 ML/MIN
[2021-11-23] MEDS ORDERED: potassium phosphate inj 15 MMOL in dextrose 5%-water 250 ML IV ONE (12:50)
[2021-11-23] MEDS ORDERED: dexmedetomidin/NS 400mcg/100ml 100 ML IV SCH (13:05)
--- NOTE | 2021-11-23 13:05 | NUR ---
at bedside. Chest tube removed at this time. Notified of repeat PO2 of 58. Vent adjusted by MD. Plan for repeat chest xray in 6 hours.
[2021-11-23] MEDS: FENTANYL-0.9 % NACL/PF 100 ML IV PRN (13:15)
[2021-11-23] MEDS: dexmedetomidine/D5W 100mL 100 ML IV SCH (13:27)
[2021-11-23] MEDS ORDERED: albumin (Human) 5% 250ml 250 ML IV ONE (15:40)
--- NOTE | 2021-11-23 15:52 | NUR ---
DR. LEGGETT AT BEDSIDE,RAISED VT, REASONING HAD PATIENT ON TEMPORARY CPAP 06/01 TRIAL PATIENT MAINTAINED SPO2 90-91%, BREATHING COMFORTABLY AT RR16, PT OWN VT 550-650, THEN PUT BACK ON AC/PRVC AND INCREASE VT TO 550 WITH PEEP 10 CM H20, BP MAP 54, ON SPO2 DROPPED 86% ALMOST IMMEDIATELY. AFTER LULÚ. 15 MINUTES, CHANGED PT BACK VT 450 STILL ON PEEP 10 CM H20, SP02 SLOWLY RAISED BACK TO 90% ON AC/PRVC RR 16, VT 450, PEEP 10 CM H20. Addendum: 11/23/21 at 1603 by Micah Austin RT Amended: Links added.
[2021-11-24] VITALS (33 sets, daily range): BP systolic 86–160; BP diastolic 34–78
[2021-11-24] MEDS: ringers solution, lacted 1,000 ML IV SCH ×2 (01:33→21:33)
[2021-11-24] MEDS: mineral oil/petrolatum ophthal oint EACHEYE SCH ×4 (02:00→20:32)
[2021-11-24] MEDS: hydrocortisone sod succ/PF 100mg/2ml inj. IV SCH ×4 (02:50→23:57)
[2021-11-24] MEDS: insulin regular, human U-100 3ml vial - multi-dose SQ SCH ×4 (02:54→20:38)
[2021-11-24 04:03] LABS: ABG BASE EXCESS 4.5 mmol/L (-2.0-2.0); ABG HCO3 28.3 mmol/L (22.0-26.0); ABG PCO2 (T) 37.2 mmHg (32.0-45.0); ABG PO2 (T) 63.9 mmHg (75.0-100.0); ALLEN'S TEST POSITIVE; FCOHb 0.3 % (0.0-3.9); FMetHb 0.2 % (0.0-1.5); FO2Hb 93.5 % (94-97); PEEP 10 cm H2O; RESPIRATORY RATE 16 b/min; TIDAL VOLUME 450 mL; TOTAL HEMOGLOBIN 10.7 G/dl (12.0-16.0)
[2021-11-24] MEDS: dexmedetomidine/D5W 100mL 100 ML IV SCH ×3 (04:41→19:40)
[2021-11-24] MEDS ORDERED: tPA-cathflo 2 MG/2 ml IV flush IVF ONE (05:05)
[2021-11-24 07:42] LABS: BASOPHILS % (AUTO) 0.1 % (0-1); MEAN CORPUSCULAR HEMOGLOBIN 27.2 PG (27.0-31.0)
[2021-11-24 07:47] LABS: EOSINOPHILS % (AUTO) 0.1 % (0-6); HEMATOCRIT 35.2 % (35.0-45.0); HEMOGLOBIN 11.2 g/dl (12.0-16.0); LYMPHOCYTES # (AUTO) 1.7 X10'3 (1.1-4.8); LYMPHOCYTES % (AUTO) 10.2 % (21-51); MEAN CORPUSCULAR HGB CONC 31.8 g/dL (33.0-36.5); MEAN CORPUSCULAR VOLUME 85.5 FL (78-98); MEAN PLATELET VOLUME 10.1 FL (7.4-10.4); MONOCYTES # (AUTO) 1.3 X10'3 (0-0.9); MONOCYTES % (AUTO) 8.2 % (2-12); NEUTROPHILS # (AUTO) 13.2 X10'3 (1.8-7.7); NEUTROPHILS % (AUTO) 81.4 % (42-75); RED BLOOD COUNT 4.12 X10'6 (4.20-5.60); RED CELL DISTRIBUTION WIDTH 15.8 % (11.5-14.5); WHITE BLOOD COUNT 16.3 X10'3 (4.5-11.0)
[2021-11-24 07:57] LABS: PLATELET COUNT 42 X10'3 (140-440)
[2021-11-24 08:00] LABS: ABG BASE EXCESS 3.9 mmol/L (-2.0-2.0); ABG HCO3 27.1 mmol/L (22.0-26.0); ABG OXYGEN SATURATION 96.8 % (94-97); ABG PCO2 (T) 34.5 mmHg (32.0-45.0); ABG PO2 (T) 81.6 mmHg (75.0-100.0); ALLEN'S TEST POSITIVE; FCOHb 0.3 % (0.0-3.9); FMetHb 0.3 % (0.0-1.5); FO2Hb 96.2 % (94-97); PATIENT TEMPERATURE 36.1; PEEP 14 cm H2O; RESPIRATORY RATE 24 b/min; TIDAL VOLUME 350 mL; TOTAL HEMOGLOBIN 11.2 G/dl (12.0-16.0)
[2021-11-24 08:01] LABS: ALBUMIN 2.1 G/DL (3.4-5.0); ANION GAP 12 (8-16); BLOOD UREA NITROGEN 61 MG/DL (7-18); BUN/CREATININE RATIO 59.2 (6.6-38.0); CHLORIDE 108 MMOL/L (99-107); CREATININE 1.03 MG/DL (0.40-0.90); GLUCOSE 150 MG/DL (70-104); MAGNESIUM 2.2 MG/DL (1.5-2.4); PHOSPHORUS 2.7 MG/DL (2.3-4.5); POTASSIUM 3.3 MMOL/L (3.5-5.1); SODIUM 146 MMOL/L (135-145); TOTAL CARBON DIOXIDE 26.3 MMOL/L (24-32); eGFR 52 ML/MIN
[2021-11-24] MEDS: insulin glargine (Lantus) pen - multi-dose SQ SCH ×2 (08:45→20:37)
[2021-11-24] MEDS: famotidine 20mg tablet OGT SCH (08:45)
[2021-11-24] MEDS: [UNRECOGNIZED DRUG - OTHER] IV SCH (08:46)
[2021-11-24] MEDS: CEFTRIAXONE IV SCH (08:46)
[2021-11-24] MEDS: potassium Cl 20mEq/100mL bag 100 ML IV PRN ×2 (09:39→10:46)
[2021-11-24] MEDS: FENTANYL-0.9 % NACL/PF 100 ML IV PRN ×3 (10:20→17:54)
[2021-11-24] MEDS: furosemide 40mg/4ml inj IV SCH ×2 (11:00→20:32)
--- NOTE | 2021-11-24 13:44 | NUR ---
Reassessment: Pt remains intubated and tolerating TF at goal rate with GRV WNL. Noted serum Na slightly elevated at 146 MMOL/L which is down from 147 MMOL/L 11/23. Pt receiving 100 mL water flush Q4H though may need to be adjusted if Na does not continue with downward trend. LBM 11/23. Will continue to follow closely and make recommendations as appropriate. Recommendations: 1. Continuous TF per MD using Vital AF at 65 ml/hr to provide 1560mL volume, 1872 kcal, 117g protein, and 1265 free water 2. Additional 100 mL water flush Q4H; monitor serum Na 3. PALB Q /; Daily scaled wts 4. Routine bowel care 5. Advance to carb controlled diet upon extubation; consider BSS 6. DM ed when appropriate following extubation once pt made aware of DM per physician.; A1C 8.3% w/ no prior hx or home DM meds per EMR Addendum: 11/24/21 at [address] Amended: Links added.
--- NOTE | 2021-11-24 18:30 | NUR ---
Patient in room ICU 2040. I have received report from MEÑO Pat and had the opportunity to ask questions and assume patient care.
[2021-11-25] VITALS (33 sets, daily range): BP systolic 85–181; BP diastolic 29–66
[2021-11-25] MEDS: FENTANYL-0.9 % NACL/PF 100 ML IV PRN ×2 (02:05→18:02)
[2021-11-25] MEDS: dexmedetomidine/D5W 100mL 100 ML IV SCH ×4 (02:06→22:34)
[2021-11-25] MEDS: mineral oil/petrolatum ophthal oint EACHEYE SCH ×4 (02:06→20:00)
[2021-11-25] MEDS: insulin regular, human U-100 3ml vial - multi-dose SQ SCH ×4 (02:14→21:26)
[2021-11-25 03:51] LABS: ABG BASE EXCESS 4.2 mmol/L (-2.0-2.0); ABG HCO3 26.7 mmol/L (22.0-26.0); ABG OXYGEN SATURATION 96.8 % (94-97); ABG PCO2 (T) 33.2 mmHg (32.0-45.0); ABG PO2 (T) 88.1 mmHg (75.0-100.0); FCOHb 0.3 % (0.0-3.9); FMetHb 0.3 % (0.0-1.5); FO2Hb 96.2 % (94-97); PEEP 12 cm H2O; RESPIRATORY RATE 20 b/min; TIDAL VOLUME 350 mL; TOTAL HEMOGLOBIN 11.8 G/dl (12.0-16.0)
--- NOTE | 2021-11-25 06:21 | NUR ---
Problems reprioritized. Patient report given, questions answered & plan of care reviewed with MEÑO Herrera.
[2021-11-25 06:51] LABS: BASOPHILS % (AUTO) 0.2 % (0-1); EOSINOPHILS % (AUTO) 0.1 % (0-6); HEMATOCRIT 32.8 % (35.0-45.0); HEMOGLOBIN 10.5 g/dl (12.0-16.0); LYMPHOCYTES % (AUTO) 6.9 % (21-51); MEAN CORPUSCULAR HGB CONC 31.9 g/dL (33.0-36.5); MEAN CORPUSCULAR VOLUME 84.8 FL (78-98); MONOCYTES # (AUTO) 1.2 X10'3 (0-0.9); MONOCYTES % (AUTO) 8.1 % (2-12); NEUTROPHILS # (AUTO) 12.4 X10'3 (1.8-7.7); NEUTROPHILS % (AUTO) 84.7 % (42-75); RED BLOOD COUNT 3.87 X10'6 (4.20-5.60); RED CELL DISTRIBUTION WIDTH 16.2 % (11.5-14.5); WHITE BLOOD COUNT 14.6 X10'3 (4.5-11.0)
[2021-11-25 06:57] LABS: ANION GAP 9 (8-16); BLOOD UREA NITROGEN 60 MG/DL (7-18); BUN/CREATININE RATIO 70.6 (6.6-38.0); CALCIUM 7.8 MG/DL (8.5-10.1); CHLORIDE 111 MMOL/L (99-107); CREATININE 0.85 MG/DL (0.40-0.90); GLUCOSE 187 MG/DL (70-104); MAGNESIUM 1.9 MG/DL (1.5-2.4); PHOSPHORUS 3.4 MG/DL (2.3-4.5); SODIUM 149 MMOL/L (135-145); TOTAL CARBON DIOXIDE 28.9 MMOL/L (24-32); eGFR 65 ML/MIN
[2021-11-25 07:10] LABS: PLATELET COUNT 38 X10'3 (140-440)
[2021-11-25 07:40] LABS: ABG BASE EXCESS 3.8 mmol/L (-2.0-2.0); ABG HCO3 26.7 mmol/L (22.0-26.0); ABG OXYGEN SATURATION 94.2 % (94-97); ABG PCO2 (T) 35.3 mmHg (32.0-45.0); ABG PO2 (T) 72.2 mmHg (75.0-100.0); ALLEN'S TEST POSITIVE; FCOHb 0.3 % (0.0-3.9); FMetHb 0.2 % (0.0-1.5); FO2Hb 93.7 % (94-97); PATIENT TEMPERATURE 37.6; PEEP 14 cm H2O; RESPIRATORY RATE 20 b/min; TIDAL VOLUME 325 mL; TOTAL HEMOGLOBIN 11.3 G/dl (12.0-16.0)
[2021-11-25] MEDS: furosemide 40mg/4ml inj IV SCH ×2 (07:56→21:17)
[2021-11-25] MEDS: [UNRECOGNIZED DRUG - OTHER] IV SCH (07:57)
[2021-11-25] MEDS: famotidine 20mg tablet OGT SCH (07:57)
[2021-11-25] MEDS: hydrocortisone sod succ/PF 100mg/2ml inj. IV SCH ×2 (07:57→16:33)
[2021-11-25] MEDS: CEFTRIAXONE IV SCH (07:57)
[2021-11-25] MEDS: metolazone 2.5mg tablet PO SCH ×2 (07:59→21:16)
[2021-11-25] MEDS: potassium Cl 20mEq/100mL bag 100 ML IV PRN ×4 (08:00→12:19)
[2021-11-25] MEDS: insulin glargine (Lantus) pen - multi-dose SQ SCH ×2 (08:37→21:23)
[2021-11-25 09:26] LABS: TOTAL CELLS COUNTED 100
[2021-11-25 09:27] LABS: ANISOCYTOSIS 1+; PLATELET ESTIMATE DECREASED
[2021-11-25 09:28] LABS: HYPOCHROMASIA 1+; POLYCHROMASIA 1+; STOMATOCYTES FEW; TEAR DROP CELLS 1+
[2021-11-25] MEDS: propofol 1000mg/100ml bottle 100 ML IV SCH (12:31)
--- NOTE | 2021-11-25 18:22 | NUR ---
Patient in room ICU 2040. I have received report from MEÑO Herrera and had the opportunity to ask questions and assume patient care.
[2021-11-26] VITALS (32 sets, daily range): BP systolic 89–185; BP diastolic 35–55
[2021-11-26] MEDS: hydrocortisone sod succ/PF 100mg/2ml inj. IV SCH ×3 (00:45→16:11)
[2021-11-26] MEDS: propofol 1000mg/100ml bottle 100 ML IV SCH ×3 (00:45→21:10)
[2021-11-26] MEDS: FENTANYL-0.9 % NACL/PF 100 ML IV PRN ×4 (01:25→21:11)
[2021-11-26] MEDS: mineral oil/petrolatum ophthal oint EACHEYE SCH ×4 (01:27→20:50)
[2021-11-26] MEDS: insulin regular, human U-100 3ml vial - multi-dose SQ SCH ×4 (02:24→21:10)
[2021-11-26 04:01] LABS: ABG BASE EXCESS 5.9 mmol/L (-2.0-2.0); ABG HCO3 28.5 mmol/L (22.0-26.0); ABG OXYGEN SATURATION 89.2 % (94-97); ABG PCO2 (T) 35.4 mmHg (32.0-45.0); ABG PO2 (T) 58.7 mmHg (75.0-100.0); ALLEN'S TEST POSITIVE; FCOHb 0.3 % (0.0-3.9); FMetHb 0.3 % (0.0-1.5); FO2Hb 88.7 % (94-97); PATIENT TEMPERATURE 37.6; PEEP 10 cm H2O; RESPIRATORY RATE 20 b/min; TIDAL VOLUME 350 mL; TOTAL HEMOGLOBIN 11.6 G/dl (12.0-16.0)
[2021-11-26] MEDS: dexmedetomidine/D5W 100mL 100 ML IV SCH ×3 (06:10→17:45)
--- NOTE | 2021-11-26 06:46 | NUR ---
Problems reprioritized. Patient report given, questions answered & plan of care reviewed with MEÑO Herrera.
[2021-11-26] MEDS: famotidine 20mg tablet OGT SCH (08:58)
[2021-11-26] MEDS: CEFTRIAXONE IV SCH (08:58)
[2021-11-26] MEDS: [UNRECOGNIZED DRUG - OTHER] IV SCH (08:58)
[2021-11-26] MEDS: furosemide 40mg/4ml inj IV SCH ×2 (08:58→20:50)
[2021-11-26] MEDS: insulin glargine (Lantus) pen - multi-dose SQ SCH ×2 (09:00→21:08)
[2021-11-26] MEDS: metolazone 2.5mg tablet PO SCH (09:02)
--- NOTE | 2021-11-26 10:56 | NUR ---
f/u 11/26: Will adjust TF as pt has had updated wt and has also started Propofol at 7.52ml/hr providing additional 198kcals/day. TF recs below d/w RN. Recommendations: 1. While pt on Propofol at 7.52ml/hr (198kcals), Continuous TF using Vital HP at 45 ml/hr to provide 1080mL volume, 1080 kcal, 95g protein, and 903 free water 2. IF Propofol turned off. TF using Vital HP at 53ml/hr to provide 1272ml volume, 1272kcals, 111g protein, 1068ml volume 3. Additional 200 mL water flush Q4H; monitor serum Na 4. PALB Q /; Daily scaled wts 5. Routine bowel care 6. Advance to carb controlled diet upon extubation; consider BSS 7. DM ed when appropriate following extubation once pt made aware of DM per physician.; A1C 8.3% w/ no prior hx or home DM meds per EMR Addendum: 11/26/21 at [address] Amended: Links added.
[2021-11-26 11:13] LABS: BASOPHILS # (AUTO) 0.1 X10'3 (0-0.2); BASOPHILS % (AUTO) 0.4 % (0-1); EOSINOPHILS # (AUTO) 0.1 X10'3 (0-0.9); EOSINOPHILS % (AUTO) 0.3 % (0-6); HEMATOCRIT 32.3 % (35.0-45.0); HEMOGLOBIN 10.1 g/dl (12.0-16.0); LYMPHOCYTES % (AUTO) 5.8 % (21-51); MEAN CORPUSCULAR HEMOGLOBIN 26.6 PG (27.0-31.0); MEAN CORPUSCULAR HGB CONC 31.3 g/dL (33.0-36.5); MEAN PLATELET VOLUME 10.4 FL (7.4-10.4); MONOCYTES # (AUTO) 1.3 X10'3 (0-0.9); MONOCYTES % (AUTO) 7.5 % (2-12); NEUTROPHILS # (AUTO) 14.4 X10'3 (1.8-7.7); PLATELET COUNT 115 X10'3 (140-440); RED CELL DISTRIBUTION WIDTH 16.5 % (11.5-14.5); WHITE BLOOD COUNT 16.7 X10'3 (4.5-11.0)
[2021-11-26 11:28] LABS: ALBUMIN 1.9 G/DL (3.4-5.0); ANION GAP 11 (8-16); BLOOD UREA NITROGEN 66 MG/DL (7-18); BUN/CREATININE RATIO 64.1 (6.6-38.0); CHLORIDE 105 MMOL/L (99-107); CREATININE 1.03 MG/DL (0.40-0.90); GLUCOSE 179 MG/DL (70-104); PHOSPHORUS 4.6 MG/DL (2.3-4.5); PREALBUMIN 21.2 MG/DL (19-36); SODIUM 143 MMOL/L (135-145); TOTAL CARBON DIOXIDE 27.3 MMOL/L (24-32); TRIGLYCERIDES 114 MG/DL (20-135); eGFR 52 ML/MIN
[2021-11-26] MEDS: potassium Cl 20mEq/100mL bag 100 ML IV PRN ×4 (11:43→16:11)
[2021-11-26 12:20] LABS: ALLEN'S TEST POS
[2021-11-26] MEDS ORDERED: DEXTROSE 15 GM of carb/4 tabs (each vial/BOTTLE has 4 tablets) OGT PRN ×2 (13:30)
[2021-11-26] MEDS ORDERED: magnesium hydroxide 30ml (MOM) UD suspension OGT PRN (13:31)
[2021-11-26] MEDS ORDERED: Neutra Phos packet OGT PRN (13:31)
[2021-11-26] MEDS ORDERED: polyethylene glycol 3350 17gm powd pack OGT PRN (13:31)
[2021-11-26] MEDS ORDERED: potassium Cl 20 mEq SR tablet OGT PRN (13:32)
[2021-11-26] MEDS ORDERED: acetaminophen 325mg/10.15ml oral unit dose solution OGT PRN ×2 (13:35)
--- NOTE | 2021-11-26 18:22 | NUR ---
Problems reprioritized. Patient report given, questions answered & plan of care reviewed with MEÑO Martines.
--- NOTE | 2021-11-26 18:30 | NUR ---
Patient in room ICU 2040. I have received report from MEÑO Herrera and had the opportunity to ask questions and assume patient care.
[2021-11-26] MEDS: metolazone 2.5mg tablet OGT SCH (20:50)
[2021-11-27] VITALS (34 sets, daily range): BP systolic 82–156; BP diastolic 30–59
[2021-11-27] MEDS: hydrocortisone sod succ/PF 100mg/2ml inj. IV SCH ×4 (00:20→23:44)
[2021-11-27] MEDS: dexmedetomidine/D5W 100mL 100 ML IV SCH ×4 (00:21→17:54)
[2021-11-27] MEDS: mineral oil/petrolatum ophthal oint EACHEYE SCH ×4 (02:20→20:18)
[2021-11-27] MEDS: insulin regular, human U-100 3ml vial - multi-dose SQ SCH ×4 (02:22→20:42)
[2021-11-27 03:50] LABS: ABG BASE EXCESS 1.3 mmol/L (-2.0-2.0); ABG HCO3 24.3 mmol/L (22.0-26.0); ABG PCO2 (T) 32.6 mmHg (32.0-45.0); ALLEN'S TEST POSITIVE; FCOHb 0.3 % (0.0-3.9); FMetHb 0.3 % (0.0-1.5); FO2Hb 87.5 % (94-97); PEEP 8 cm H2O; RESPIRATORY RATE 16 b/min; TIDAL VOLUME 375 mL; TOTAL HEMOGLOBIN 10.6 G/dl (12.0-16.0)
[2021-11-27] MEDS: FENTANYL-0.9 % NACL/PF 100 ML IV PRN ×4 (04:43→21:43)
[2021-11-27 04:46] LABS: HEMOGLOBIN 9.6 g/dl (12.0-16.0)
[2021-11-27 04:48] LABS: BASOPHILS % (AUTO) 0.3 % (0-1); EOSINOPHILS % (AUTO) 0.3 % (0-6); HEMATOCRIT 30.2 % (35.0-45.0); LYMPHOCYTES % (AUTO) 6.7 % (21-51); MEAN CORPUSCULAR HEMOGLOBIN 27.2 PG (27.0-31.0); MEAN CORPUSCULAR HGB CONC 31.8 g/dL (33.0-36.5); MEAN CORPUSCULAR VOLUME 85.4 FL (78-98); MEAN PLATELET VOLUME 10.6 FL (7.4-10.4); MONOCYTES # (AUTO) 0.9 X10'3 (0-0.9); NEUTROPHILS # (AUTO) 12.4 X10'3 (1.8-7.7); NEUTROPHILS % (AUTO) 86.7 % (42-75); PLATELET COUNT 111 X10'3 (140-440); RED BLOOD COUNT 3.54 X10'6 (4.20-5.60); RED CELL DISTRIBUTION WIDTH 16.2 % (11.5-14.5); WHITE BLOOD COUNT 14.4 X10'3 (4.5-11.0)
[2021-11-27 04:56] LABS: ALBUMIN 1.7 G/DL (3.4-5.0); ANION GAP 8 (8-16); BLOOD UREA NITROGEN 63 MG/DL (7-18); BUN/CREATININE RATIO 68.5 (6.6-38.0); CALCIUM 7.8 MG/DL (8.5-10.1); CHLORIDE 103 MMOL/L (99-107); CREATININE 0.92 MG/DL (0.40-0.90); GLUCOSE 170 MG/DL (70-104); MAGNESIUM 1.8 MG/DL (1.5-2.4); PHOSPHORUS 4.8 MG/DL (2.3-4.5); POTASSIUM 3.4 MMOL/L (3.5-5.1); SODIUM 140 MMOL/L (135-145); TOTAL CARBON DIOXIDE 28.6 MMOL/L (24-32); eGFR 59 ML/MIN
[2021-11-27] MEDS: potassium Cl 20mEq/100mL bag 100 ML IV PRN ×2 (05:19→07:04)
--- NOTE | 2021-11-27 06:32 | NUR ---
Problems reprioritized. Patient report given, questions answered & plan of care reviewed with MEÑO Perez.
[2021-11-27] MEDS: famotidine 20mg tablet OGT SCH (07:36)
[2021-11-27] MEDS: CEFTRIAXONE IV SCH (07:36)
[2021-11-27] MEDS: [UNRECOGNIZED DRUG - OTHER] IV SCH (07:36)
[2021-11-27] MEDS: metolazone 2.5mg tablet OGT SCH ×2 (07:36→20:19)
[2021-11-27] MEDS: furosemide 40mg/4ml inj IV SCH ×2 (07:36→20:19)
[2021-11-27] MEDS: insulin glargine (Lantus) pen - multi-dose SQ SCH ×2 (07:46→20:43)
[2021-11-27] MEDS: propofol 1000mg/100ml bottle 100 ML IV SCH ×2 (10:59→18:43)
[2021-11-27] MEDS: heparin, porcine 5000 units/ml vial SQ SCH ×2 (11:53→20:20)
--- NOTE | 2021-11-27 12:03 | NUR ---
PICC line placed. All lines changed per policy.
[2021-11-27] MEDS ORDERED: mineral oil/petrolatum ophthal oint EACHEYE PRN (13:15)
--- NOTE | 2021-11-27 16:04 | NUR ---
RN asked Dr. Cervantes if pt's mouth sores could be thrush. He stated maybe Herpes and will order Valtrex. Awaiting orders.
--- NOTE | 2021-11-27 18:20 | NUR ---
Patient in room ICU 2040. I have received report from MEÑO Perez and had the opportunity to ask questions and assume patient care. Patients and daughter at bedside during report. Daughter verbalized concern over sores on mouth. Patient appears very restless in bed. Patient is restrained and on the ventilator.
--- NOTE | 2021-11-27 19:33 | NUR ---
Patient oxygen saturation 87% on 70% FiO2. FiO2 increased to 100%. PEEP at 8. RT at bedside. Patient repositioned and SpO2 increased to 94% very slowly. Lung sounds are clear and equal, chest with equal rise and fall. ORDER: to increase PEEP to 12. PEEP increased to 12. Will wean down FiO2 as tolerated.
[2021-11-28] VITALS (34 sets, daily range): BP systolic 85–176; BP diastolic 28–129
[2021-11-28] MEDS: dexmedetomidine/D5W 100mL 100 ML IV SCH ×2 (00:22→23:50)
[2021-11-28] MEDS: mineral oil/petrolatum ophthal oint EACHEYE SCH ×4 (02:03→20:26)
[2021-11-28] MEDS: insulin regular, human U-100 3ml vial - multi-dose SQ SCH ×4 (02:49→20:39)
[2021-11-28 03:04] LABS: BASOPHILS % (AUTO) 0.1 % (0-1); EOSINOPHILS # (AUTO) 0.1 X10'3 (0-0.9); EOSINOPHILS % (AUTO) 0.4 % (0-6); HEMATOCRIT 28.9 % (35.0-45.0); HEMOGLOBIN 9.3 g/dl (12.0-16.0); LYMPHOCYTES # (AUTO) 0.9 X10'3 (1.1-4.8); LYMPHOCYTES % (AUTO) 7.4 % (21-51); MEAN CORPUSCULAR HEMOGLOBIN 27.3 PG (27.0-31.0); MEAN CORPUSCULAR HGB CONC 32.2 g/dL (33.0-36.5); MEAN CORPUSCULAR VOLUME 84.6 FL (78-98); MEAN PLATELET VOLUME 10.8 FL (7.4-10.4); MONOCYTES # (AUTO) 0.8 X10'3 (0-0.9); MONOCYTES % (AUTO) 6.3 % (2-12); NEUTROPHILS # (AUTO) 10.9 X10'3 (1.8-7.7); NEUTROPHILS % (AUTO) 85.8 % (42-75); PLATELET COUNT 102 X10'3 (140-440); RED BLOOD COUNT 3.42 X10'6 (4.20-5.60); RED CELL DISTRIBUTION WIDTH 16.6 % (11.5-14.5); WHITE BLOOD COUNT 12.7 X10'3 (4.5-11.0)
[2021-11-28 03:22] LABS: ALBUMIN 1.6 G/DL (3.4-5.0); ANION GAP 7 (8-16); BLOOD UREA NITROGEN 69 MG/DL (7-18); BUN/CREATININE RATIO 71.1 (6.6-38.0); CALCIUM 7.5 MG/DL (8.5-10.1); CHLORIDE 102 MMOL/L (99-107); CREATININE 0.97 MG/DL (0.40-0.90); MAGNESIUM 1.9 MG/DL (1.5-2.4); PHOSPHORUS 4.8 MG/DL (2.3-4.5); SODIUM 141 MMOL/L (135-145); eGFR 55 ML/MIN
[2021-11-28 03:38] LABS: GLUCOSE 197 MG/DL (70-104)
[2021-11-28 03:40] LABS: POTASSIUM 2.8 MMOL/L (3.5-5.1)
[2021-11-28 03:57] LABS: ABG BASE EXCESS 4.4 mmol/L (-2.0-2.0); ABG HCO3 26.8 mmol/L (22.0-26.0); ABG OXYGEN SATURATION 94.1 % (94-97); ABG PCO2 (T) 31.5 mmHg (32.0-45.0); ABG PO2 (T) 69.8 mmHg (75.0-100.0); ALLEN'S TEST POSITIVE; FCOHb 0.3 % (0.0-3.9); FMetHb 0.2 % (0.0-1.5); FO2Hb 93.6 % (94-97); PATIENT TEMPERATURE 36.6; PEEP 12 cm H2O; RESPIRATORY RATE 16 b/min; TIDAL VOLUME 450 mL; TOTAL HEMOGLOBIN 10.7 G/dl (12.0-16.0)
[2021-11-28] MEDS: propofol 1000mg/100ml bottle 100 ML IV SCH ×3 (03:57→21:37)
[2021-11-28] MEDS: potassium Cl 20mEq/100mL bag 100 ML IV PRN ×6 (04:14→12:38)
[2021-11-28 04:17] LABS: PLATELET ESTIMATE DECREASED
[2021-11-28 04:19] LABS: ANISOCYTOSIS 1+
[2021-11-28] MEDS: FENTANYL-0.9 % NACL/PF 100 ML IV PRN ×3 (04:19→21:39)
[2021-11-28 04:20] LABS: ELLIPTOCYTES FEW; LARGE PLATELETS MODERATE; POLYCHROMASIA 1+
[2021-11-28 04:21] LABS: STOMATOCYTES FEW
[2021-11-28] MEDS ORDERED: potassium bicarbonate/cit acid 25mEq tablet.effervescent NG ONE (05:15)
[2021-11-28] MEDS ORDERED: magnesium 2GM in 50ml NS 50 ML IV ONE (05:15)
--- NOTE | 2021-11-28 05:19 | NUR ---
Rounds with Dr. Mendez, ABG, labs, patients mannerisms/ neuro status addressed. Per Dr. Mendez, orders for replacement of K of 2.8 with 40 mEq potassium IV, 50mEq Potassium via NG tube now, 2 gm Magnesium IV now, Order to hold AM lasix until K can be corrected. Addressed patients sore on her lip and the white patches in her mouth. Dr. Mendez to discuss with daytime MD about consulting ID for assistance with diagnosis and treatment. Per Dr. Mednez decrease Fentanyl to 80mcg/hr now to see if that will have a change in patients mental status. Okay to use propofol and precedex for sedation while weaning down Fentanyl.
[2021-11-28] MEDS: furosemide 40mg/4ml inj IV SCH ×2 (05:29→20:00)
--- NOTE | 2021-11-28 06:33 | NUR ---
Problems reprioritized. Patient report given, questions answered & plan of care reviewed with MEÑO Burrell.
[2021-11-28] MEDS: CEFTRIAXONE IV SCH (07:40)
[2021-11-28] MEDS: [UNRECOGNIZED DRUG - OTHER] IV SCH (07:40)
[2021-11-28] MEDS: heparin, porcine 5000 units/ml vial SQ SCH ×2 (07:40→20:29)
[2021-11-28] MEDS: hydrocortisone sod succ/PF 100mg/2ml inj. IV SCH ×2 (07:40→16:00)
[2021-11-28] MEDS: famotidine 20mg tablet OGT SCH (07:42)
[2021-11-28] MEDS: metolazone 2.5mg tablet OGT SCH ×2 (07:55→20:27)
[2021-11-28] MEDS: insulin glargine (Lantus) pen - multi-dose SQ SCH ×2 (08:12→20:40)
[2021-11-28] MEDS ORDERED: albumin (human) 25% 100 ML IV solution IV ONE (10:25)
[2021-11-28] MEDS ORDERED: valacyclovir 500mg tablet PO SCH (11:14)
--- NOTE | 2021-11-28 11:45 | NUR ---
F/u 11/28: Pt tolerating TF at goal GRV WNL. Propofol noted at 10.2 ml/hr this AM during rounds providing 269 kcals/day; able to meet kcal needs but unable to meet minimum estimated protein needs given Propofol. notified of updated TF recs in EMR once Propofol off. Rectal tube in place -50ml output since 11/21 per EMR however not accurate w/ daily stool output per RN. Will monitor for further nutrition intervention needs. Recommendations: 1. While pt on Propofol at 10.2ml/hr (293kcals), Continuous TF using Vital HP at 45 ml/hr to provide 1080mL volume, 1080 kcal, 95g protein, and 903 free water 2. IF Propofol turned off. TF using Vital High Protein at 59ml/hr to provide 1416ml volume, 1416kcals, 124g protein, and 1068ml water 3. Additional 200 mL water flush Q4H; monitor serum Na 4. PALB Q /; Daily scaled wts 5. Routine bowel care 6. Advance to carb controlled diet upon extubation; consider BSS 7. DM ed when appropriate following extubation once pt made aware of DM per physician.; A1C 8.3% w/ no prior hx or home DM meds per EMR Addendum: 11/28/21 at [address] Amended: Links added.
--- NOTE | 2021-11-28 18:30 | NUR ---
Patient in room ICU 2040. I have received report from Indra WILDER and had the opportunity to ask questions and assume patient care.
[2021-11-28] MEDS: valacyclovir 500mg tablet OGT SCH (20:26)
[2021-11-29] VITALS (33 sets, daily range): BP systolic 71–202; BP diastolic 26–114
[2021-11-29] MEDS: hydrocortisone sod succ/PF 100mg/2ml inj. IV SCH ×3 (00:14→16:21)
[2021-11-29] MEDS: mineral oil/petrolatum ophthal oint EACHEYE SCH ×4 (02:11→20:17)
[2021-11-29 02:33] LABS: BASOPHILS % (AUTO) 0.1 % (0-1); EOSINOPHILS # (AUTO) 0.1 X10'3 (0-0.9); EOSINOPHILS % (AUTO) 0.6 % (0-6); HEMATOCRIT 31.2 % (35.0-45.0); HEMOGLOBIN 10.1 g/dl (12.0-16.0); LYMPHOCYTES % (AUTO) 5.4 % (21-51); MEAN CORPUSCULAR HGB CONC 32.2 g/dL (33.0-36.5); MEAN CORPUSCULAR VOLUME 83.7 FL (78-98); MEAN PLATELET VOLUME 10.1 FL (7.4-10.4); MONOCYTES # (AUTO) 1.4 X10'3 (0-0.9); MONOCYTES % (AUTO) 7.6 % (2-12); NEUTROPHILS # (AUTO) 16.1 X10'3 (1.8-7.7); NEUTROPHILS % (AUTO) 86.3 % (42-75); PLATELET COUNT 163 X10'3 (140-440); RED BLOOD COUNT 3.73 X10'6 (4.20-5.60); RED CELL DISTRIBUTION WIDTH 16.5 % (11.5-14.5); WHITE BLOOD COUNT 18.6 X10'3 (4.5-11.0)
[2021-11-29 02:46] LABS: ALBUMIN 2.1 G/DL (3.4-5.0); ANION GAP 7 (8-16); BLOOD UREA NITROGEN 64 MG/DL (7-18); BUN/CREATININE RATIO 74.4 (6.6-38.0); CHLORIDE 103 MMOL/L (99-107); CREATININE 0.86 MG/DL (0.40-0.90); GLUCOSE 105 MG/DL (70-104); MAGNESIUM 2.2 MG/DL (1.5-2.4); PHOSPHORUS 3.6 MG/DL (2.3-4.5); POTASSIUM 3.6 MMOL/L (3.5-5.1); PREALBUMIN 20.7 MG/DL (19-36); SODIUM 141 MMOL/L (135-145); TOTAL CARBON DIOXIDE 30.6 MMOL/L (24-32); eGFR 64 ML/MIN
--- NOTE | 2021-11-29 03:00 | NUR ---
PT's O2 sats have been trending down through out shift. Gradually needing ot increase FiO2, It is not at 75% and PT O2 sat >93%. Will continue to monitor.
[2021-11-29 03:29] LABS: ABG BASE EXCESS 7.1 mmol/L (-2.0-2.0); ABG OXYGEN SATURATION 88.8 % (94-97); ABG PO2 (T) 57.2 mmHg (75.0-100.0); ALLEN'S TEST Modified; FCOHb 0.3 % (0.0-3.9); FMetHb 0.4 % (0.0-1.5); FO2Hb 88.2 % (94-97); PATIENT TEMPERATURE 37.6; PEEP 8 cm H2O; RESPIRATORY RATE 14 b/min; TIDAL VOLUME 450 mL; TOTAL HEMOGLOBIN 9.8 G/dl (12.0-16.0)
[2021-11-29] MEDS: FENTANYL-0.9 % NACL/PF 100 ML IV PRN ×3 (04:21→18:33)
[2021-11-29] MEDS ORDERED: QUEtiapine 25mg tablet PO SCH (04:26)
[2021-11-29] MEDS: propofol 1000mg/100ml bottle 100 ML IV SCH (06:38)
--- NOTE | 2021-11-29 06:45 | NUR ---
Problems reprioritized. Patient report given, questions answered & plan of care reviewed with Rayna WILDER.
--- NOTE | 2021-11-29 07:00 | NUR ---
Patient in room ICU 2040. I have received report from bernardo and had the opportunity to ask questions and assume patient care.
[2021-11-29] MEDS: dexmedetomidine/D5W 100mL 100 ML IV SCH ×2 (07:32→21:37)
[2021-11-29] MEDS: valacyclovir 500mg tablet OGT SCH ×2 (07:33→20:17)
[2021-11-29] MEDS: furosemide 40mg/4ml inj IV SCH ×2 (07:33→20:00)
[2021-11-29] MEDS: heparin, porcine 5000 units/ml vial SQ SCH ×2 (07:33→20:17)
[2021-11-29] MEDS: famotidine 20mg tablet OGT SCH (07:34)
[2021-11-29] MEDS: CEFTRIAXONE IV SCH (07:41)
[2021-11-29] MEDS: [UNRECOGNIZED DRUG - OTHER] IV SCH (07:41)
[2021-11-29] MEDS: metolazone 2.5mg tablet OGT SCH ×2 (07:56→20:17)
[2021-11-29] MEDS: insulin glargine (Lantus) pen - multi-dose SQ SCH ×2 (08:00→21:03)
[2021-11-29] MEDS: insulin regular, human U-100 3ml vial - multi-dose SQ SCH ×3 (08:41→21:04)
--- NOTE | 2021-11-29 09:00 | NUR ---
update to dr. inge charles seronba franks to resume lasix, hold lantus this am. pt continues with constant movement in bed- all over. pt opens eyes when name called, but nothing to command. rectal tube leaking- flushed, ballon inflation checked.
[2021-11-29 11:56] LABS: CLARITY,URINE SLIGHTLY CLOUDY (Clear); COLOR,URINE YELLOW (Yellow); GLUCOSE, URINE NEGATIVE (Neg); KETONES,URINE NEGATIVE (Neg); LEUKOCYTE ESTERASE ,URINE SMALL (Neg); NITRITES, URINE NEGATIVE (Neg); OCCULT BLOOD,URINE TRACE-INTACT (Neg); PH,URINE 6.5 (4.8-8.0); PROTEIN,URINE NEGATIVE (Neg); UROBILINOGEN,URINE 0.2 E.U/dL (0.2-1.0)
--- NOTE | 2021-11-29 12:00 | NUR ---
after conversation with lab, infection control and md- stool for cdiff sent, along with urine and sputum. cdiff later- neg.
[2021-11-29 12:03] LABS: HYALINE CASTS 0-3 /LPF (NEGATIVE); UA COLLECTION TYPE FOLEY CATH
[2021-11-29 12:04] LABS: SQUAMOUS EPITHELIAL CELL,UR FEW /LPF (FEW); YEAST MANY /HPF (NEGATIVE)
[2021-11-29 12:06] LABS: BACTERIA,URINE FEW /HPF (Neg); WBC,URINE 0-4 /HPF (0-4)
[2021-11-29 12:53] LABS: C DIFFICILE TOXINS A&B NEGATIVE (Neg)
[2021-11-29 12:54] LABS: C DIFF SPECIMEN=DIARRHEA? ACCEPTABLE
[2021-11-29] MEDS: labetalol 20mg/4ml (5mg/ml) syringe IV PRN (15:10)
[2021-11-29] MEDS ORDERED: LORazepam 2 mg/ml vial IV PRN (16:00)
--- NOTE | 2021-11-29 16:29 | NUR ---
Spoke with Dr. Denis at pt bedside about pt agitation and unable to follow commands B/p elevated On Precedex max dose and Fent 30 mg Ativan 1 mg given Trandate given earlier for HTN Pt incont around rectal tube area red and swollen including perineum New rectal tube inserted pt having loose brown stool Juan tubefeed Sputum sent for culture due to elevated WBC
[2021-11-29] MEDS ORDERED: LORazepam 2 mg/ml vial IM PRN (17:20)
[2021-11-29] MEDS: LORazepam 2 mg/ml vial IV PRN (17:44)
--- NOTE | 2021-11-29 18:30 | NUR ---
Patient in room ICU 2040. I have received report from Rayna WILDER and had the opportunity to ask questions and assume patient care.
[2021-11-30] VITALS (35 sets, daily range): BP systolic 92–161; BP diastolic 28–56
[2021-11-30] MEDS: hydrocortisone sod succ/PF 100mg/2ml inj. IV SCH ×3 (01:27→15:14)
[2021-11-30] MEDS: FENTANYL-0.9 % NACL/PF 100 ML IV PRN ×5 (01:28→21:25)
[2021-11-30] MEDS: dexmedetomidine/D5W 100mL 100 ML IV SCH ×5 (01:29→19:37)
[2021-11-30] MEDS: mineral oil/petrolatum ophthal oint EACHEYE SCH ×2 (02:17→08:00)
[2021-11-30] MEDS: insulin regular, human U-100 3ml vial - multi-dose SQ SCH ×4 (02:23→20:20)
[2021-11-30 02:50] LABS: BASOPHILS % (AUTO) 0.3 % (0-1); EOSINOPHILS # (AUTO) 0.1 X10'3 (0-0.9); EOSINOPHILS % (AUTO) 0.5 % (0-6); HEMATOCRIT 26.3 % (35.0-45.0); HEMOGLOBIN 8.5 g/dl (12.0-16.0); LYMPHOCYTES # (AUTO) 1.5 X10'3 (1.1-4.8); LYMPHOCYTES % (AUTO) 14.6 % (21-51); MEAN CORPUSCULAR HGB CONC 32.1 g/dL (33.0-36.5); MEAN PLATELET VOLUME 10.1 FL (7.4-10.4); MONOCYTES # (AUTO) 0.8 X10'3 (0-0.9); MONOCYTES % (AUTO) 8.3 % (2-12); NEUTROPHILS # (AUTO) 7.8 X10'3 (1.8-7.7); NEUTROPHILS % (AUTO) 76.3 % (42-75); PLATELET COUNT 141 X10'3 (140-440); RED BLOOD COUNT 3.13 X10'6 (4.20-5.60); RED CELL DISTRIBUTION WIDTH 16.6 % (11.5-14.5); WHITE BLOOD COUNT 10.2 X10'3 (4.5-11.0)
[2021-11-30 03:02] LABS: ALBUMIN 1.9 G/DL (3.4-5.0); ANION GAP 6 (8-16); BLOOD UREA NITROGEN 57 MG/DL (7-18); BUN/CREATININE RATIO 67.9 (6.6-38.0); CALCIUM 7.7 MG/DL (8.5-10.1); CHLORIDE 105 MMOL/L (99-107); CREATININE 0.84 MG/DL (0.40-0.90); GLUCOSE 126 MG/DL (70-104); MAGNESIUM 2.1 MG/DL (1.5-2.4); PHOSPHORUS 4.1 MG/DL (2.3-4.5); POTASSIUM 3.1 MMOL/L (3.5-5.1); SODIUM 143 MMOL/L (135-145); TOTAL CARBON DIOXIDE 31.7 MMOL/L (24-32); eGFR 65 ML/MIN
[2021-11-30 03:05] LABS: ABG BASE EXCESS 6.2 mmol/L (-2.0-2.0); ABG HCO3 29.9 mmol/L (22.0-26.0); ABG OXYGEN SATURATION 91.5 % (94-97); ABG PCO2 (T) 38.7 mmHg (32.0-45.0); ABG PO2 (T) 63.1 mmHg (75.0-100.0); FCOHb 0.3 % (0.0-3.9); FMetHb 0.2 % (0.0-1.5); PATIENT TEMPERATURE 36.5; PEEP 8 cm H2O; RESPIRATORY RATE 14 b/min; TIDAL VOLUME 450 mL
[2021-11-30] MEDS: potassium Cl 20mEq/100mL bag 100 ML IV PRN ×6 (03:32→19:55)
--- NOTE | 2021-11-30 03:45 | NUR ---
PT thrashing around in bed constantly. During an episode of thrashing about, PT pulled out the rectal tube. The green port for balloon inflation was completely broken off of tube itself and water from the balloon leaked on to the bed. Precedex is currently running at 1.2mcg and Fentanyl is at 200mcg and PT is still thrashing about. PT does not follow any commands, she does open her eyes when her name is called and she notably opens eyes more when calling her name while on PT's Left side. Will continue to monitor.
[2021-11-30] MEDS: LORazepam 2 mg/ml vial IV PRN (04:46)
--- NOTE | 2021-11-30 05:01 | NUR ---
PRN Ativan given d/t continued agitation while Precedex continues at 1.2mcg and Fentanyl at 200mcg. PT now resting comfortably. Will continue to monitor.
--- NOTE | 2021-11-30 06:00 | NUR ---
Patient in room ICU 2040. I have received report from Michael WIDLER and had the opportunity to ask questions and assume patient care.
--- NOTE | 2021-11-30 06:44 | NUR ---
Problems reprioritized. Patient report given, questions answered & plan of care reviewed with Lucia WILDER.
[2021-11-30] MEDS: furosemide 40mg/4ml inj IV SCH ×2 (08:01→19:56)
[2021-11-30] MEDS: [UNRECOGNIZED DRUG - OTHER] IV SCH (08:01)
[2021-11-30] MEDS: CEFTRIAXONE IV SCH (08:01)
[2021-11-30] MEDS: famotidine 20mg tablet OGT SCH (08:02)
[2021-11-30] MEDS: metolazone 2.5mg tablet OGT SCH ×2 (08:02→20:15)
[2021-11-30] MEDS: valacyclovir 500mg tablet OGT SCH ×2 (08:02→19:56)
[2021-11-30] MEDS: heparin, porcine 5000 units/ml vial SQ SCH ×2 (08:02→19:56)
[2021-11-30] MEDS: insulin glargine (Lantus) pen - multi-dose SQ SCH ×2 (08:54→20:18)
--- NOTE | 2021-11-30 10:00 | NUR ---
Informed Dr. Aguilar in rounds of high residual of 400, H&H drop to 8.5/26.3 from 10.1/31.2. also added scheduled ativan to help with weaning sedation. MD also turned peep on ventilator to 7 from 8. Informed MD that pt has been bradycardic with HR in the 50s. MD stated to start weaning precedex.
[2021-11-30] MEDS ORDERED: LORazepam 1 MG tablet PO ONE (10:11)
[2021-11-30] MEDS ORDERED: LORazepam 2 mg/ml vial IV SCH (10:49)
[2021-11-30] MEDS ORDERED: loperamide 2mg capsule PO ONE (10:50)
[2021-11-30] MEDS ORDERED: loperamide 2mg capsule PO PRN (10:50)
[2021-11-30] MEDS: propofol 1000mg/100ml bottle 100 ML IV SCH (11:27)
[2021-11-30] MEDS ORDERED: vitamin A & D ointment-NF 1 APPLIC TUBE TP SCH (11:31)
[2021-11-30] MEDS ORDERED: vitamin A & D ointment-NF 1 APPLIC TUBE TP ONE (12:02)
--- NOTE | 2021-11-30 12:30 | NUR ---
Informed Dr. Aguilar of pt being bradycardic at the lowest HR 48, weaned precedex slightly and pt became extremely agitated. stated if HR goes below 40 to inform him and to keep precedex at current rate of 1.0 and okay to give ativan prn.
[2021-11-30] MEDS ORDERED: LORazepam 1 MG tablet PO SCH (14:00)
[2021-11-30] MEDS: DOCOSANOL 2 GM CREAM..G. TP SCH ×3 (14:19→20:16)
[2021-11-30] MEDS: LORazepam 1 MG tablet PO SCH ×2 (14:20→19:56)
--- NOTE | 2021-11-30 18:14 | NUR ---
Problems reprioritized. Patient report given, questions answered & plan of care reviewed with Awilda WILDER.
[2021-11-30] MEDS: vitamin A & D ointment-NF 1 APPLIC TUBE TP SCH (20:15)
[2021-12-01] VITALS (34 sets, daily range): BP systolic 99–136; BP diastolic 35–70
[2021-12-01] MEDS: hydrocortisone sod succ/PF 100mg/2ml inj. IV SCH ×3 (00:11→15:29)
[2021-12-01] MEDS: dexmedetomidine/D5W 100mL 100 ML IV SCH ×5 (01:26→20:21)
[2021-12-01] MEDS: LORazepam 1 MG tablet PO SCH ×4 (02:18→20:22)
[2021-12-01] MEDS: FENTANYL-0.9 % NACL/PF 100 ML IV PRN ×5 (02:19→20:22)
[2021-12-01] MEDS: insulin regular, human U-100 3ml vial - multi-dose SQ SCH ×3 (02:31→20:41)
[2021-12-01 02:56] LABS: ABG BASE EXCESS 5.5 mmol/L (-2.0-2.0); ABG HCO3 29.6 mmol/L (22.0-26.0); ABG OXYGEN SATURATION 88.1 % (94-97); ABG PCO2 (T) 39.7 mmHg (32.0-45.0); ABG PO2 (T) 54.2 mmHg (75.0-100.0); FCOHb 0.3 % (0.0-3.9); FMetHb 0.3 % (0.0-1.5); FO2Hb 87.6 % (94-97); PEEP 6 cm H2O; RESPIRATORY RATE 12 b/min; TIDAL VOLUME 450 mL
[2021-12-01 03:29] LABS: BASOPHILS % (AUTO) 0.2 % (0-1); EOSINOPHILS % (AUTO) 0.6 % (0-6); HEMATOCRIT 26.8 % (35.0-45.0); HEMOGLOBIN 8.7 g/dl (12.0-16.0); LYMPHOCYTES # (AUTO) 1.4 X10'3 (1.1-4.8); LYMPHOCYTES % (AUTO) 17.7 % (21-51); MEAN CORPUSCULAR HEMOGLOBIN 27.2 PG (27.0-31.0); MEAN CORPUSCULAR HGB CONC 32.3 g/dL (33.0-36.5); MEAN CORPUSCULAR VOLUME 84.3 FL (78-98); MEAN PLATELET VOLUME 10.3 FL (7.4-10.4); MONOCYTES # (AUTO) 0.7 X10'3 (0-0.9); MONOCYTES % (AUTO) 8.3 % (2-12); NEUTROPHILS # (AUTO) 5.7 X10'3 (1.8-7.7); NEUTROPHILS % (AUTO) 73.2 % (42-75); PLATELET COUNT 152 X10'3 (140-440); RED BLOOD COUNT 3.18 X10'6 (4.20-5.60); RED CELL DISTRIBUTION WIDTH 16.5 % (11.5-14.5); WHITE BLOOD COUNT 7.8 X10'3 (4.5-11.0)
[2021-12-01 04:07] LABS: ALBUMIN 1.8 G/DL (3.4-5.0); ANION GAP 6 (8-16); BLOOD UREA NITROGEN 55 MG/DL (7-18); CALCIUM 7.7 MG/DL (8.5-10.1); CHLORIDE 102 MMOL/L (99-107); CREATININE 0.86 MG/DL (0.40-0.90); GLUCOSE 232 MG/DL (70-104); MAGNESIUM 1.9 MG/DL (1.5-2.4); PHOSPHORUS 4.2 MG/DL (2.3-4.5); POTASSIUM 3.3 MMOL/L (3.5-5.1); SODIUM 139 MMOL/L (135-145); TOTAL CARBON DIOXIDE 31.2 MMOL/L (24-32); eGFR 64 ML/MIN
[2021-12-01] MEDS: potassium Cl 20mEq/100mL bag 100 ML IV PRN ×2 (04:52→06:02)
[2021-12-01] MEDS: DOCOSANOL 2 GM CREAM..G. TP SCH ×4 (04:53→22:49)
--- NOTE | 2021-12-01 06:31 | NUR ---
Problems reprioritized. Patient report given, questions answered & plan of care reviewed with JAMES WILDER.
[2021-12-01] MEDS: insulin glargine (Lantus) pen - multi-dose SQ SCH ×2 (08:00→20:40)
[2021-12-01] MEDS: vitamin A & D ointment-NF 1 APPLIC TUBE TP SCH ×2 (08:00→20:23)
[2021-12-01] MEDS: CEFTRIAXONE IV SCH (08:19)
[2021-12-01] MEDS: [UNRECOGNIZED DRUG - OTHER] IV SCH (08:19)
[2021-12-01] MEDS: furosemide 40mg/4ml inj IV SCH ×2 (08:20→20:22)
[2021-12-01] MEDS: valacyclovir 500mg tablet OGT SCH ×2 (08:20→20:22)
[2021-12-01] MEDS: famotidine 20mg tablet OGT SCH (08:20)
[2021-12-01] MEDS: heparin, porcine 5000 units/ml vial SQ SCH ×2 (08:26→20:24)
[2021-12-01] MEDS: metolazone 2.5mg tablet OGT SCH ×2 (09:16→20:22)
--- NOTE | 2021-12-01 09:40 | NUR ---
Reassessment: Pt remains intubated and tolerating TF with GRV WNL. Noted pt did have one elevated residual of 400 mL 11/30 though down to 30-150 mL today. Pt not receiving Propofol at this time. D/w RN recommendation to increase TF rate to 59 mL/hr to optimize nutrition status while on the vent. Noted pt with a Joe of 11, per wound care note pt with DTI to sacrum which is survival equipment repairer in color and measures slightly smaller with surrounding skin normal in color and texture. LBM 4/8 documented with 150 mL stool output per I&O. Will continue to follow closely and monitor need for further adjustments to nutrition intervention recommendations. Recommendations: 1. While Propofol off, continuous TF via OGT using Vital HP at 59 ml/hr to provide 1416 ml volume/day, 1416 kcal, 124 g protein, and 1068 ml water 2. Monitor need to adjust TF recs if Propofol is resumed 3. Additional 200 mL water flush Q4H; monitor serum Na 4. PALB q /; Daily scaled wts 5. Routine bowel care 6. Advance to carb controlled diet upon extubation; consider BSS with ST 7. DM ed when appropriate following extubation and pt made aware of DM by physician; A1C 8.3% with no prior hx or home DM meds per EMR Addendum: 12/01/21 at [address] Amended: Links added.
--- NOTE | 2021-12-01 18:22 | NUR ---
Patient in room ICU 2040. I have received report from MEÑO Jessica and had the opportunity to ask questions and assume patient care.
[2021-12-01] MEDS: propofol 1000mg/100ml bottle 100 ML IV SCH (22:53)
[2021-12-02] VITALS (36 sets, daily range): BP systolic 94–176; BP diastolic 36–98
[2021-12-02] MEDS: hydrocortisone sod succ/PF 100mg/2ml inj. IV SCH ×3 (00:01→20:22)
[2021-12-02] MEDS: FENTANYL-0.9 % NACL/PF 100 ML IV PRN ×6 (00:38→20:54)
[2021-12-02] MEDS: dexmedetomidine/D5W 100mL 100 ML IV SCH ×4 (00:38→18:08)
[2021-12-02] MEDS: LORazepam 1 MG tablet PO SCH ×4 (01:51→20:23)
[2021-12-02] MEDS: insulin regular, human U-100 3ml vial - multi-dose SQ SCH ×4 (02:07→20:44)
[2021-12-02 02:29] LABS: BASOPHILS % (AUTO) 0.3 % (0-1); EOSINOPHILS # (AUTO) 0.1 X10'3 (0-0.9); EOSINOPHILS % (AUTO) 0.5 % (0-6); HEMOGLOBIN 9.4 g/dl (12.0-16.0); LYMPHOCYTES # (AUTO) 1.1 X10'3 (1.1-4.8); LYMPHOCYTES % (AUTO) 9.5 % (21-51); MEAN CORPUSCULAR HEMOGLOBIN 26.5 PG (27.0-31.0); MEAN CORPUSCULAR HGB CONC 31.5 g/dL (33.0-36.5); MEAN CORPUSCULAR VOLUME 84.1 FL (78-98); MEAN PLATELET VOLUME 10.1 FL (7.4-10.4); MONOCYTES # (AUTO) 0.7 X10'3 (0-0.9); MONOCYTES % (AUTO) 6.1 % (2-12); NEUTROPHILS # (AUTO) 9.8 X10'3 (1.8-7.7); NEUTROPHILS % (AUTO) 83.6 % (42-75); PLATELET COUNT 179 X10'3 (140-440); RED BLOOD COUNT 3.57 X10'6 (4.20-5.60); RED CELL DISTRIBUTION WIDTH 16.4 % (11.5-14.5); WHITE BLOOD COUNT 11.7 X10'3 (4.5-11.0)
[2021-12-02 02:39] LABS: ABG BASE EXCESS 6.7 mmol/L (-2.0-2.0); ABG HCO3 30.4 mmol/L (22.0-26.0); ABG OXYGEN SATURATION 86.7 % (94-97); ABG PCO2 (T) 39.9 mmHg (32.0-45.0); ABG PO2 (T) 50.3 mmHg (75.0-100.0); ALLEN'S TEST POSITIVE; FCOHb 0.3 % (0.0-3.9); FMetHb 0.3 % (0.0-1.5); FO2Hb 86.2 % (94-97); PATIENT TEMPERATURE 36.8; PEEP 7 cm H2O; RESPIRATORY RATE 12 b/min; TIDAL VOLUME 450 mL; TOTAL HEMOGLOBIN 10.7 G/dl (12.0-16.0)
[2021-12-02 02:45] LABS: ALBUMIN 1.8 G/DL (3.4-5.0); ANION GAP 8 (8-16); BLOOD UREA NITROGEN 57 MG/DL (7-18); CHLORIDE 98 MMOL/L (99-107); CREATININE 0.95 MG/DL (0.40-0.90); GLUCOSE 121 MG/DL (70-104); MAGNESIUM 1.7 MG/DL (1.5-2.4); PHOSPHORUS 3.4 MG/DL (2.3-4.5); POTASSIUM 3.3 MMOL/L (3.5-5.1); SODIUM 136 MMOL/L (135-145); TOTAL CARBON DIOXIDE 30.5 MMOL/L (24-32); eGFR 57 ML/MIN
[2021-12-02] MEDS: potassium Cl 20mEq/100mL bag 100 ML IV PRN ×6 (04:48→22:42)
[2021-12-02] MEDS: DOCOSANOL 2 GM CREAM..G. TP SCH ×5 (05:28→22:42)
--- NOTE | 2021-12-02 06:26 | NUR ---
Problems reprioritized. Patient report given, questions answered & plan of care reviewed with MEÑO Britt.
--- NOTE | 2021-12-02 06:30 | NUR ---
Patient in room ICU 2040. I have received report from Bobbi WILDER and had the opportunity to ask questions and assume patient care.
[2021-12-02] MEDS: [UNRECOGNIZED DRUG - OTHER] IV SCH (07:32)
[2021-12-02] MEDS: CEFTRIAXONE IV SCH (07:32)
[2021-12-02] MEDS: metolazone 2.5mg tablet OGT SCH ×2 (07:33→20:23)
[2021-12-02] MEDS: valacyclovir 500mg tablet OGT SCH ×2 (07:34→20:23)
[2021-12-02] MEDS: famotidine 20mg tablet OGT SCH (07:34)
[2021-12-02] MEDS: furosemide 40mg/4ml inj IV SCH ×2 (07:35→20:22)
[2021-12-02] MEDS: heparin, porcine 5000 units/ml vial SQ SCH ×2 (07:36→20:25)
[2021-12-02] MEDS: vitamin A & D ointment-NF 1 APPLIC TUBE TP SCH ×2 (07:37→20:24)
[2021-12-02] MEDS: insulin glargine (Lantus) pen - multi-dose SQ SCH ×2 (07:40→20:43)
--- NOTE | 2021-12-02 09:40 | NUR ---
Daughter bedside to visit updated and answered all questions
--- NOTE | 2021-12-02 17:00 | NUR ---
Daughter bedside and informed me that she is very upset that her mothers hair is matted, asked what our bathing policy was, stated that each patient receives a CHG bath each night. She stated that she is very upset that her hair is matted and stated "that it needs to be addressed and that it doesn't get matted in one day"
--- NOTE | 2021-12-02 18:30 | NUR ---
Patient in room ICU 2040. I have received report from MEÑO Britt and had the opportunity to ask questions and assume patient care.
--- NOTE | 2021-12-02 18:31 | NUR ---
Problems reprioritized. Patient report given, questions answered & plan of care reviewed with Bobbi WILDER.
[2021-12-03] VITALS (36 sets, daily range): BP systolic 96–171; BP diastolic 36–55
[2021-12-03] MEDS: dexmedetomidine/D5W 100mL 100 ML IV SCH ×5 (00:55→19:57)
[2021-12-03] MEDS: FENTANYL-0.9 % NACL/PF 100 ML IV PRN ×6 (01:22→22:36)
[2021-12-03] MEDS: LORazepam 1 MG tablet PO SCH ×5 (02:53→19:45)
[2021-12-03 02:57] LABS: ABG BASE EXCESS 9.1 mmol/L (-2.0-2.0); ABG HCO3 32.8 mmol/L (22.0-26.0); ABG OXYGEN SATURATION 93.3 % (94-97); ABG PCO2 (T) 42.1 mmHg (32.0-45.0); ABG PO2 (T) 69.1 mmHg (75.0-100.0); ALLEN'S TEST POSITIVE; FCOHb 0.3 % (0.0-3.9); FMetHb 0.2 % (0.0-1.5); FO2Hb 92.8 % (94-97); PATIENT TEMPERATURE 37.4; PEEP 8 cm H2O; RESPIRATORY RATE 12 b/min; TIDAL VOLUME 450 mL
[2021-12-03 03:12] LABS: BASOPHILS % (AUTO) 0.2 % (0-1); EOSINOPHILS % (AUTO) 0.1 % (0-6); HEMATOCRIT 27.4 % (35.0-45.0); HEMOGLOBIN 8.8 g/dl (12.0-16.0); LYMPHOCYTES % (AUTO) 9.5 % (21-51); MEAN CORPUSCULAR HEMOGLOBIN 27.1 PG (27.0-31.0); MEAN CORPUSCULAR HGB CONC 32.2 g/dL (33.0-36.5); MEAN CORPUSCULAR VOLUME 84.1 FL (78-98); MEAN PLATELET VOLUME 9.5 FL (7.4-10.4); MONOCYTES # (AUTO) 0.7 X10'3 (0-0.9); MONOCYTES % (AUTO) 6.9 % (2-12); NEUTROPHILS # (AUTO) 8.7 X10'3 (1.8-7.7); NEUTROPHILS % (AUTO) 83.3 % (42-75); PLATELET COUNT 173 X10'3 (140-440); RED BLOOD COUNT 3.25 X10'6 (4.20-5.60); WHITE BLOOD COUNT 10.4 X10'3 (4.5-11.0)
[2021-12-03 03:40] LABS: ALANINE AMINOTRANSFERASE 30 U/L (12-78); ALBUMIN 1.9 G/DL (3.4-5.0); ALBUMIN/GLOBULIN RATIO 0.6 (1.1-1.5); ALKALINE PHOSPHATASE 48 IU/L (46-116); ANION GAP 3 (8-16); ASPARTATE AMINO TRANSFERASE 25 U/L (10-37); BILIRUBIN,TOTAL 0.2 MG/DL (0.1-1.0); BLOOD UREA NITROGEN 53 MG/DL (7-18); BUN/CREATININE RATIO 60.9 (6.6-38.0); CALCIUM 7.9 MG/DL (8.5-10.1); CHLORIDE 102 MMOL/L (99-107); CREATININE 0.87 MG/DL (0.40-0.90); GLUCOSE 101 MG/DL (70-104); MAGNESIUM 1.6 MG/DL (1.5-2.4); PHOSPHORUS 3.3 MG/DL (2.3-4.5); POTASSIUM 3.6 MMOL/L (3.5-5.1); PREALBUMIN 22.9 MG/DL (19-36); SODIUM 137 MMOL/L (135-145); TOTAL CARBON DIOXIDE 32.4 MMOL/L (24-32); TOTAL PROTEIN 4.9 G/DL (6.4-8.2); TRIGLYCERIDES 116 MG/DL (20-135); eGFR 63 ML/MIN
[2021-12-03] MEDS: insulin regular, human U-100 3ml vial - multi-dose SQ SCH ×4 (03:50→20:21)
--- NOTE | 2021-12-03 04:12 | NUR ---
Patient's blood sugar was 96 and on a level 6, patient was dropped to a level 4 and covered for only carbs. Patient's steroids had been titrated yesterday. Will trial patient on level 4 and continue to monitor.
[2021-12-03] MEDS ORDERED: metoclopramide 5 mg/ml inj IV PRN (05:10)
[2021-12-03] MEDS: DOCOSANOL 2 GM CREAM..G. TP SCH ×5 (05:36→22:00)
--- NOTE | 2021-12-03 06:35 | NUR ---
Problems reprioritized. Patient report given, questions answered & plan of care reviewed with MEÑO Tyson.
[2021-12-03] MEDS: docusate sodium 100mg/10ml UD cup PO SCH ×2 (08:24→19:45)
[2021-12-03] MEDS: hydrocortisone sod succ/PF 100mg/2ml inj. IV SCH ×2 (08:25→19:44)
[2021-12-03] MEDS: valacyclovir 500mg tablet OGT SCH ×2 (08:25→19:45)
[2021-12-03] MEDS: heparin, porcine 5000 units/ml vial SQ SCH ×2 (08:25→19:46)
[2021-12-03] MEDS: famotidine 20mg tablet OGT SCH (08:25)
[2021-12-03] MEDS: furosemide 40mg/4ml inj IV SCH ×2 (08:25→23:30)
[2021-12-03] MEDS: vitamin A & D ointment-NF 1 APPLIC TUBE TP SCH ×2 (08:52→19:46)
[2021-12-03] MEDS: metolazone 2.5mg tablet OGT SCH ×2 (08:55→23:30)
--- NOTE | 2021-12-03 09:00 | NUR ---
Patient in room ICU 2040. I have received report from Bobbi WILDER and had the opportunity to ask questions and assume patient care. Daughter here, aware of O2 increases. Stayed for rounds and concern for trach vocalized. MD explained FiO2 needs to be less than 50% and peep at 8 or less, so trach and peg are on hold.
[2021-12-03] MEDS: insulin glargine (Lantus) pen - multi-dose SQ SCH ×2 (09:05→21:01)
--- NOTE | 2021-12-03 10:43 | NUR ---
F/u 12/03: Pt tolerating TF at goal GRV WNL w/ free water to decrease to 100ml Q4H per geothermal installer; recs below updated. Addendum: 12/03/21 at [address] Amended: Links added.
--- NOTE | 2021-12-03 11:34 | NUR ---
Patient in room ICU 2039. I have received report from Bobbi WILDER and had the opportunity to ask questions and assume patient care. MD to see pt. Updated on current condition. He will add orders for pt. QT interval reported. Amiodarone decreased to noted rate after discussion with CN and MD. Daughter here, aware of O2 increases. Stayed for rounds and concern for trach vocalized. MD explained FiO2 needs to be less than 50% and peep at 8 or less, so trach and peg are on hold. Addendum: 12/03/21 at 1135 by Jah Qureshi RN Wrong pt, please ignore this note.
--- NOTE | 2021-12-03 12:43 | NUR ---
16fr Temp León replaced per infection control request. Pt tolerated well, clear yellow urine observed, to gravity drainage.
--- NOTE | 2021-12-03 17:34 | NUR ---
MD Visit MD to see pt and daughter. Let them know that the CT showed masses on the liver and likely CA. Pt admittedly refused to go to [facility] for any reason. It was explained that he'd need to recoperate from his current health issues and then address those liver masses. He settled a bit but initiated the conversation about chest compressions. Pt refused his dinner tray but requested orange jello which was provided. Pt began coughing with the Jello given. Encouraged to focus on his swallowing as well as deep breaths and coughing.
[2021-12-03] MEDS: propofol 1000mg/100ml bottle 100 ML IV SCH (18:49)
[2021-12-03] MEDS: potassium Cl 20 mEq SR tablet OGT PRN ×2 (19:55→23:30)
--- NOTE | 2021-12-03 20:29 | NUR ---
Potassium 2.[address] Núñez, did not answer and Mailbox not set up. Notified manager branch Addendum: 12/03/21 at 2104 by Stephen Carrillo RN Spoke with Dr Núñez, he said to give another KCL 40 meq in addition to the previous 40 meq given earlier for K+2.7
[2021-12-04] VITALS (34 sets, daily range): BP systolic 105–150; BP diastolic 40–86
[2021-12-04] MEDS: dexmedetomidine/D5W 100mL 100 ML IV SCH ×5 (01:00→23:04)
[2021-12-04 02:20] LABS: BASOPHILS % (AUTO) 0.2 % (0-1); EOSINOPHILS % (AUTO) 0.3 % (0-6); HEMATOCRIT 31.5 % (35.0-45.0); HEMOGLOBIN 10.4 g/dl (12.0-16.0); LYMPHOCYTES % (AUTO) 11.4 % (21-51); MEAN CORPUSCULAR HEMOGLOBIN 27.8 PG (27.0-31.0); MEAN CORPUSCULAR VOLUME 84.2 FL (78-98); MEAN PLATELET VOLUME 9.2 FL (7.4-10.4); MONOCYTES # (AUTO) 0.5 X10'3 (0-0.9); NEUTROPHILS % (AUTO) 82.1 % (42-75); PLATELET COUNT 177 X10'3 (140-440); RED BLOOD COUNT 3.74 X10'6 (4.20-5.60); RED CELL DISTRIBUTION WIDTH 16.5 % (11.5-14.5); WHITE BLOOD COUNT 8.5 X10'3 (4.5-11.0)
[2021-12-04] MEDS: FENTANYL-0.9 % NACL/PF 100 ML IV PRN ×4 (02:20→23:04)
[2021-12-04] MEDS: insulin regular, human U-100 3ml vial - multi-dose SQ SCH ×4 (02:25→22:03)
[2021-12-04 02:37] LABS: ABG BASE EXCESS 7.8 mmol/L (-2.0-2.0); ABG HCO3 31.7 mmol/L (22.0-26.0); ABG OXYGEN SATURATION 90.6 % (94-97); ABG PCO2 (T) 39.8 mmHg (32.0-45.0); ABG PO2 (T) 54.6 mmHg (75.0-100.0); ALLEN'S TEST POSITIVE; FCOHb 0.3 % (0.0-3.9); FMetHb 0.2 % (0.0-1.5); FO2Hb 90.1 % (94-97); PATIENT TEMPERATURE 35.8; PEEP 10 cm H2O; RESPIRATORY RATE 12 b/min; TIDAL VOLUME 400 mL; TOTAL HEMOGLOBIN 11.5 G/dl (12.0-16.0)
[2021-12-04 02:38] LABS: ALANINE AMINOTRANSFERASE 29 U/L (12-78); ALBUMIN/GLOBULIN RATIO 0.6 (1.1-1.5); ALKALINE PHOSPHATASE 56 IU/L (46-116); ANION GAP 6 (8-16); ASPARTATE AMINO TRANSFERASE 21 U/L (10-37); BILIRUBIN,TOTAL 0.3 MG/DL (0.1-1.0); BLOOD UREA NITROGEN 45 MG/DL (7-18); BUN/CREATININE RATIO 64.3 (6.6-38.0); CALCIUM 8.5 MG/DL (8.5-10.1); CHLORIDE 99 MMOL/L (99-107); GLUCOSE 183 MG/DL (70-104); MAGNESIUM 1.5 MG/DL (1.5-2.4); PHOSPHORUS 3.3 MG/DL (2.3-4.5); POTASSIUM 3.8 MMOL/L (3.5-5.1); SODIUM 137 MMOL/L (135-145); TOTAL CARBON DIOXIDE 32.4 MMOL/L (24-32); TOTAL PROTEIN 5.5 G/DL (6.4-8.2); eGFR 81 ML/MIN
--- NOTE | 2021-12-04 02:54 | NUR ---
81 yo F, admitted 11/18/2021, day 16 of hospitalization, NDA, No isolation, Bilateral soft wrist restraints, Orders and documentation in accordance with facility policies and procedures. This patient is with limited history, transferred from [facility] in respiratory distress. Per report she had a recent ureteral stent placed. Now has a white count and is febrile. A lactate of 6 led to initiation of sepsis protocol with assumption of urosepsis. She received empiric antibiotics and 2L NS. However, developed fluid overload and went into respiratory failure. She was subsequently intubated and started on pressors for low BP. Her ABG suggests predominantly a hypercarbic respiratory failure. She will be admitted to the ICU for further monitoring. Currently, pt is sedated on Fentanyl at 240 mcgs (24 ml's/hr) and Precedex at 1.0 mcgs (20.87 ml's/hr). Afebrile, becomes restless at times, does not follow commands. SR HR 59, BP 150/78, weak pulses, generalized Mild edema with labial edema. All IVF infusing via MADAI TL PICC Line. Dressing CDI, all ports f/p, good blood return. Site has gross ecchymosis. Heparin SQ for DVT prophylaxis along with SCD's. Intubated 11/18/2021, Day 16 of intubation. Intubated with 8.0 ETT 23 cm, Vent AC/PRVC, rate 12, TV 538+/-, FIO2 60%, PEEP 10. FIO2 was increased at 0230 based on morning ABG. Breath sounds Coarse, diminished, equal, symmetrical, non labored, PO 95%. Hypoactive bowel sounds, soft non tender, non distended, No BM. Pt is on Bowel Protocol. OGT infusing Vital HP at 59 ml's/hr, (40 carbs). Glucose Q6 hours with regular insulin coverage (level 5), and Lantus BID. Pepcid for GI prophylaxis. León draining clear yellow urine. Pt on Lasix and Zaroxolyn. Lasix and Zaroxolyn given late due to K+ being 2.7. K+ was replaced, rechecked 2 hours later result was 3.6. Meds were given along with more KCL. Current K+ 3.8. Skin is fragile, Notable labial dependent edema. Generalized global bruising. Buttocks and groin area grossly excoriated, applied barrier cream. Bottom lip with large lesion and lesion on right cheek. Applied Abreva and pt taking PO Valtrex. Pt remains safe. Continue to monitor.
[2021-12-04] MEDS: LORazepam 1 MG tablet PO SCH ×6 (04:20→21:39)
[2021-12-04] MEDS: DOCOSANOL 2 GM CREAM..G. TP SCH ×4 (05:28→21:32)
[2021-12-04] MEDS: valacyclovir 500mg tablet OGT SCH (07:54)
[2021-12-04] MEDS: heparin, porcine 5000 units/ml vial SQ SCH ×2 (07:54→21:34)
[2021-12-04] MEDS: famotidine 20mg tablet OGT SCH (07:55)
[2021-12-04] MEDS: hydrocortisone sod succ/PF 100mg/2ml inj. IV SCH ×2 (07:55→21:33)
[2021-12-04] MEDS: furosemide 40mg/4ml inj IV SCH ×2 (07:55→21:33)
[2021-12-04] MEDS: metolazone 2.5mg tablet OGT SCH ×2 (07:55→21:31)
[2021-12-04] MEDS: docusate sodium 100mg/10ml UD cup PO SCH ×2 (07:55→21:33)
[2021-12-04] MEDS: vitamin A & D ointment-NF 1 APPLIC TUBE TP SCH (07:56)
[2021-12-04] MEDS: insulin glargine (Lantus) pen - multi-dose SQ SCH ×2 (08:23→22:04)
--- NOTE | 2021-12-04 10:40 | NUR ---
Patient in room ICU 2040. I have received report from Efraín WILDER and had the opportunity to ask questions and assume patient care. to see. Will order CT for pt to determine underlying respiratory reasons for O2 requirements. Daughter Anny to see at about 0930 and she participated in rounds. CT scheduled for about 1300.
[2021-12-04] MEDS: HYDROmorphone 1 mg/ml syringe IV SCH ×2 (12:00→21:30)
--- NOTE | 2021-12-04 13:27 | NUR ---
F/u 12/04: Pt remains intubated tolerating TF at goal GRV WNL. Last BM 150ml output 11/30-12/01 w/ rectal tube no longer in place receiving routine colace per EMR. Serum Na 137 mmol/L this AM following free water adjustments yesterday. Will continue to monitor. Recommendations: 1. Continuous TF per MD using Vital HP at 59 ml/hr goal; to provide 1416ml volume/day, 1416 kcal, 124 g protein, and 1068 ml water 2. Monitor need to adjust TF recs if Propofol is resumed 3. Additional 100mL water flush Q4H; monitor serum Na 4. PALB q /; Daily scaled wts 5. Routine bowel care 6. DM ed when appropriate following extubation and pt made aware of DM by physician; A1C 8.3% with no prior hx or home DM meds per EMR Addendum: 12/04/21 at [address] Amended: Links added.
--- NOTE | 2021-12-04 15:35 | NUR ---
CT note Pt to CT for chest eval. Tolreated well. Daughter to see on return. Positioned to comfort after bedding removed from CT.
--- NOTE | 2021-12-04 18:30 | NUR ---
Patient in room ICU 2040. I have received report from MEÑO Tyson and had the opportunity to ask questions and assume patient care.
--- NOTE | 2021-12-04 18:39 | NUR ---
Shift end note: Daughter irritated that she didnt know that her mother had pneumonia. Dr. Blackwood did US of pt right chest to see if there was a pleural effusion he could tap. He'll reevaluate tomorrow. Told daughter pt had pneumonia in rt lung at that time. Problems reprioritized. Patient report given, questions answered & plan of care reviewed with Bobbi Singh.
[2021-12-04] MEDS: mupirocin 2% ointment 22GM TP SCH (21:30)
[2021-12-04] MEDS: piperacillin/tazo 4.5gm/100ml 100 ML IV SCH (21:46)
[2021-12-05] VITALS (35 sets, daily range): BP systolic 118–157; BP diastolic 43–53
[2021-12-05] MEDS: LORazepam 1 MG tablet PO SCH ×6 (00:47→19:51)
[2021-12-05] MEDS: HYDROmorphone 1 mg/ml syringe IV SCH ×6 (00:47→19:50)
[2021-12-05] MEDS: piperacillin/tazo 4.5gm/100ml 100 ML IV SCH ×3 (01:51→16:20)
[2021-12-05] MEDS: insulin regular, human U-100 3ml vial - multi-dose SQ SCH ×4 (02:26→20:27)
[2021-12-05 02:49] LABS: EOSINOPHILS % (AUTO) 0.2 % (0-6); MEAN PLATELET VOLUME 9.6 FL (7.4-10.4); MONOCYTES # (AUTO) 0.5 X10'3 (0-0.9); NEUTROPHILS # (AUTO) 7.5 X10'3 (1.8-7.7); WHITE BLOOD COUNT 9.1 X10'3 (4.5-11.0)
[2021-12-05 02:52] LABS: BASOPHILS % (AUTO) 0.2 % (0-1); HEMATOCRIT 28.3 % (35.0-45.0); HEMOGLOBIN 9.2 g/dl (12.0-16.0); LYMPHOCYTES % (AUTO) 10.7 % (21-51); MEAN CORPUSCULAR HEMOGLOBIN 27.8 PG (27.0-31.0); MEAN CORPUSCULAR HGB CONC 32.5 g/dL (33.0-36.5); MEAN CORPUSCULAR VOLUME 85.3 FL (78-98); MONOCYTES % (AUTO) 5.9 % (2-12); PLATELET COUNT 169 X10'3 (140-440); RED BLOOD COUNT 3.32 X10'6 (4.20-5.60); RED CELL DISTRIBUTION WIDTH 16.9 % (11.5-14.5)
[2021-12-05 03:06] LABS: ALANINE AMINOTRANSFERASE 28 U/L (12-78); ALBUMIN 1.9 G/DL (3.4-5.0); ALBUMIN/GLOBULIN RATIO 0.6 (1.1-1.5); ALKALINE PHOSPHATASE 54 IU/L (46-116); ANION GAP 9 (8-16); ASPARTATE AMINO TRANSFERASE 19 U/L (10-37); BILIRUBIN,TOTAL 0.3 MG/DL (0.1-1.0); BLOOD UREA NITROGEN 47 MG/DL (7-18); BUN/CREATININE RATIO 52.2 (6.6-38.0); CALCIUM 8.2 MG/DL (8.5-10.1); CHLORIDE 96 MMOL/L (99-107); GLUCOSE 216 MG/DL (70-104); MAGNESIUM 1.5 MG/DL (1.5-2.4); PHOSPHORUS 3.3 MG/DL (2.3-4.5); SODIUM 137 MMOL/L (135-145); TOTAL CARBON DIOXIDE 32.4 MMOL/L (24-32); TOTAL PROTEIN 5.2 G/DL (6.4-8.2); eGFR 60 ML/MIN
[2021-12-05 03:24] LABS: ABG BASE EXCESS 6.5 mmol/L (-2.0-2.0); ABG HCO3 29.5 mmol/L (22.0-26.0); ABG OXYGEN SATURATION 95.2 % (94-97); ABG PCO2 (T) 37.3 mmHg (32.0-45.0); ABG PO2 (T) 83.2 mmHg (75.0-100.0); ALLEN'S TEST POSITIVE; FCOHb 0.3 % (0.0-3.9); FO2Hb 94.9 % (94-97); PATIENT TEMPERATURE 37.6; PEEP 10 cm H2O; RESPIRATORY RATE 12 b/min; TIDAL VOLUME 400 mL; TOTAL HEMOGLOBIN 9.8 G/dl (12.0-16.0)
[2021-12-05] MEDS: potassium Cl 20mEq/100mL bag 100 ML IV PRN ×4 (03:25→07:44)
[2021-12-05] MEDS ORDERED: polyethylene glycol 3350 17gm powd pack NG PRN (05:15)
[2021-12-05] MEDS: FENTANYL-0.9 % NACL/PF 100 ML IV PRN ×3 (05:31→17:29)
[2021-12-05] MEDS: dexmedetomidine/D5W 100mL 100 ML IV SCH ×5 (05:31→20:30)
[2021-12-05] MEDS: DOCOSANOL 2 GM CREAM..G. TP SCH (05:32)
--- NOTE | 2021-12-05 06:14 | NUR ---
Problems reprioritized. Patient report given, questions answered & plan of care reviewed with MEÑO Tyson.
[2021-12-05] MEDS: furosemide 40mg/4ml inj IV SCH ×2 (07:30→19:50)
[2021-12-05] MEDS: hydrocortisone sod succ/PF 100mg/2ml inj. IV SCH ×2 (07:30→19:50)
[2021-12-05] MEDS: docusate sodium 100mg/10ml UD cup PO SCH (07:30)
[2021-12-05] MEDS: heparin, porcine 5000 units/ml vial SQ SCH ×2 (07:31→19:50)
[2021-12-05] MEDS: famotidine 20mg tablet OGT SCH (07:31)
[2021-12-05] MEDS: metolazone 2.5mg tablet OGT SCH ×2 (07:31→19:48)
[2021-12-05] MEDS: mupirocin 2% ointment 22GM TP SCH ×2 (07:32→20:24)
[2021-12-05] MEDS: insulin glargine (Lantus) pen - multi-dose SQ SCH ×2 (08:03→20:28)
[2021-12-05] MEDS ORDERED: methylnaltrexone br 12mg/0.6ml inj***SubQ only SQ ONE (11:05)
[2021-12-05] MEDS: potassium Cl 20 mEq SR tablet OGT PRN ×2 (13:48→19:46)
--- NOTE | 2021-12-05 18:29 | NUR ---
Problems reprioritized. Patient report given, questions answered & plan of care reviewed with Ember WILDER.
[2021-12-05] MEDS: docusate sodium 100mg/10ml UD cup OGT SCH (19:49)
[2021-12-06] VITALS (34 sets, daily range): BP systolic 101–193; BP diastolic 39–102
[2021-12-06] MEDS: LORazepam 1 MG tablet PO SCH ×7 (00:42→23:56)
[2021-12-06] MEDS: HYDROmorphone 1 mg/ml syringe IV SCH ×4 (00:42→11:56)
[2021-12-06] MEDS: piperacillin/tazo 4.5gm/100ml 100 ML IV SCH ×4 (00:49→23:56)
[2021-12-06] MEDS: dexmedetomidine/D5W 100mL 100 ML IV SCH ×3 (01:11→10:25)
[2021-12-06] MEDS: FENTANYL-0.9 % NACL/PF 100 ML IV PRN ×3 (01:12→15:03)
[2021-12-06] MEDS: potassium Cl 20mEq/100mL bag 100 ML IV PRN ×7 (01:26→21:07)
[2021-12-06] MEDS: insulin regular, human U-100 3ml vial - multi-dose SQ SCH ×2 (03:21→14:40)
[2021-12-06 03:25] LABS: ABG BASE EXCESS 11.1 mmol/L (-2.0-2.0); ABG HCO3 33.9 mmol/L (22.0-26.0); ABG OXYGEN SATURATION 93.5 % (94-97); ABG PCO2 (T) 38.4 mmHg (32.0-45.0); ABG PO2 (T) 66.6 mmHg (75.0-100.0); ALLEN'S TEST POSITIVE; FCOHb 0.3 % (0.0-3.9); FMetHb 0.2 % (0.0-1.5); PATIENT TEMPERATURE 37.5; PEEP 8 cm H2O; RESPIRATORY RATE 12 b/min; TIDAL VOLUME 400 mL; TOTAL HEMOGLOBIN 10.3 G/dl (12.0-16.0)
[2021-12-06 03:46] LABS: BASOPHILS % (AUTO) 0.5 % (0-1); EOSINOPHILS % (AUTO) 0.2 % (0-6); HEMATOCRIT 28.4 % (35.0-45.0); HEMOGLOBIN 9.2 g/dl (12.0-16.0); LYMPHOCYTES # (AUTO) 1.2 X10'3 (1.1-4.8); MEAN CORPUSCULAR HEMOGLOBIN 27.6 PG (27.0-31.0); MEAN CORPUSCULAR HGB CONC 32.5 g/dL (33.0-36.5); MEAN CORPUSCULAR VOLUME 84.7 FL (78-98); MONOCYTES # (AUTO) 0.6 X10'3 (0-0.9); MONOCYTES % (AUTO) 7.6 % (2-12); NEUTROPHILS # (AUTO) 6.2 X10'3 (1.8-7.7); NEUTROPHILS % (AUTO) 76.7 % (42-75); PLATELET COUNT 159 X10'3 (140-440); RED BLOOD COUNT 3.35 X10'6 (4.20-5.60); RED CELL DISTRIBUTION WIDTH 16.9 % (11.5-14.5); WHITE BLOOD COUNT 8.1 X10'3 (4.5-11.0)
[2021-12-06 04:00] LABS: ALANINE AMINOTRANSFERASE 26 U/L (12-78); ALBUMIN/GLOBULIN RATIO 0.6 (1.1-1.5); ALKALINE PHOSPHATASE 53 IU/L (46-116); ANION GAP 5 (8-16); ASPARTATE AMINO TRANSFERASE 19 U/L (10-37); BILIRUBIN,TOTAL 0.4 MG/DL (0.1-1.0); BLOOD UREA NITROGEN 45 MG/DL (7-18); BUN/CREATININE RATIO 45.5 (6.6-38.0); CHLORIDE 96 MMOL/L (99-107); CREATININE 0.99 MG/DL (0.40-0.90); GLUCOSE 213 MG/DL (70-104); MAGNESIUM 1.1 MG/DL (1.5-2.4); PHOSPHORUS 4.1 MG/DL (2.3-4.5); POTASSIUM 3.4 MMOL/L (3.5-5.1); SODIUM 136 MMOL/L (135-145); TOTAL CARBON DIOXIDE 35.4 MMOL/L (24-32); TOTAL PROTEIN 5.4 G/DL (6.4-8.2); eGFR 54 ML/MIN
[2021-12-06 04:51] LABS: APTT 25 SECONDS (22-32)
[2021-12-06] MEDS ORDERED: acetaZOLAMIDE IV 500mg inj IV ONE (05:00)
[2021-12-06] MEDS: docusate sodium 100mg/10ml UD cup OGT SCH ×2 (08:00→20:00)
[2021-12-06] MEDS: heparin, porcine 5000 units/ml vial SQ SCH ×2 (08:00→20:52)
[2021-12-06] MEDS: magnesium 4gm in 100ml NS 100 ML IV PRN (08:53)
[2021-12-06] MEDS: famotidine 20mg tablet OGT SCH (08:55)
[2021-12-06] MEDS: hydrocortisone sod succ/PF 100mg/2ml inj. IV SCH ×2 (08:56→20:52)
[2021-12-06] MEDS: mupirocin 2% ointment 22GM TP SCH ×2 (08:56→20:52)
[2021-12-06] MEDS: furosemide 40mg/4ml inj IV SCH ×2 (08:56→20:51)
[2021-12-06] MEDS: insulin glargine (Lantus) pen - multi-dose SQ SCH ×2 (08:58→21:07)
--- NOTE | 2021-12-06 10:56 | NUR ---
Received report from MEÑO Duffy. Patient appears comfortable and in no apparent distress. Family bedside at this time.
--- NOTE | 2021-12-06 10:57 | NUR ---
Report received from Clive pt to go for Trach and PEG in approximately 30mins, need consent. MG and K need replaced. Pt currently resting comfortably.
[2021-12-06] MEDS ORDERED: BUPIVAcaine 0.5% inj/PF 30 ML ONE (11:02)
--- NOTE | 2021-12-06 11:19 | NUR ---
Problems reprioritized. Patient report given, questions answered & plan of care reviewed with Sharon WILDER.
[2021-12-06] MEDS: magnesium 2GM in 50ml NS 50 ML IV PRN (11:27)
--- NOTE | 2021-12-06 11:53 | NUR ---
Patient to OR via bed with x1 RN, x1 OR tech, and Dr. Adams.
[2021-12-06] MEDS ORDERED: BUPIVAcaine 0.5% inj/PF 30 ml vial IJ ONE (13:30)
[2021-12-06] MEDS ORDERED: rocuronium 10mg/ml inj IV ONE (13:34)
[2021-12-06] MEDS ORDERED: ePHEDrine 50MG/ML INJ. ONE (13:34)
[2021-12-06] MEDS ORDERED: atropine 0.4 mg/ml 20ml vial ONE (13:34)
[2021-12-06] MEDS ORDERED: glycopyrrolate 0.2mg/ml inj ONE (13:34)
--- NOTE | 2021-12-06 14:10 | NUR ---
Patient back from OR via bed. Patient placed back on the ventilator via tracheostomy by RT. PEG tube intact with bustos bag placed on the tube to collect any drainage. Patient has x3 lap site covered with a band-aid. No bleeding noted at this time. Dr. Adams stated okay to turn the Fentanyl back to 140 from 50. Pupils equal round and sluggish. In no apparent distress. VSS. BLL. Patient turned for repeat skin check and skin was at baseline from before OR. Family now bedside.
[2021-12-06] MEDS: HYDROmorphone inj. 0.5 MG/0.5 ML DISP.SYRIN IV PRN (15:56)
[2021-12-06 17:32] LABS: ALBUMIN 2.5 G/DL (3.4-5.0); ANION GAP 12 (8-16); BLOOD UREA NITROGEN 45 MG/DL (7-18); BUN/CREATININE RATIO 41.3 (6.6-38.0); CALCIUM 8.4 MG/DL (8.5-10.1); CHLORIDE 94 MMOL/L (99-107); CREATININE 1.09 MG/DL (0.40-0.90); GLUCOSE 225 MG/DL (70-104); MAGNESIUM 2.7 MG/DL (1.5-2.4); SODIUM 136 MMOL/L (135-145); TOTAL CARBON DIOXIDE 29.9 MMOL/L (24-32); eGFR 48 ML/MIN
--- NOTE | 2021-12-06 18:20 | NUR ---
Problems reprioritized. Patient report given, questions answered & plan of care reviewed with Boris RN.
[2021-12-07] VITALS (33 sets, daily range): BP systolic 73–178; BP diastolic 31–83
[2021-12-07] MEDS: dexmedetomidine/D5W 100mL 100 ML IV SCH ×5 (00:29→22:32)
[2021-12-07] MEDS: FENTANYL-0.9 % NACL/PF 100 ML IV PRN ×3 (00:29→10:23)
--- NOTE | 2021-12-07 01:30 | NUR ---
RN Note -MD Communication Called Dr. Reynolds regarding pt's buttock is getting more red and excoriated and starting to bleed. Pt is having a constant stream of liquid stool and is flailing all extremities nonpurposefully and scooting down bed. Received order for rectal tube.
[2021-12-07 02:23] LABS: ALANINE AMINOTRANSFERASE 27 U/L (12-78); ALBUMIN 2.3 G/DL (3.4-5.0); ALBUMIN/GLOBULIN RATIO 0.6 (1.1-1.5); ALKALINE PHOSPHATASE 52 IU/L (46-116); ANION GAP 8 (8-16); ASPARTATE AMINO TRANSFERASE 22 U/L (10-37); BILIRUBIN,TOTAL 0.5 MG/DL (0.1-1.0); BLOOD UREA NITROGEN 42 MG/DL (7-18); BUN/CREATININE RATIO 35.6 (6.6-38.0); CALCIUM 8.1 MG/DL (8.5-10.1); CHLORIDE 96 MMOL/L (99-107); CREATININE 1.18 MG/DL (0.40-0.90); GLUCOSE 207 MG/DL (70-104); MAGNESIUM 2.6 MG/DL (1.5-2.4); PHOSPHORUS 4.7 MG/DL (2.3-4.5); POTASSIUM 3.3 MMOL/L (3.5-5.1); SODIUM 136 MMOL/L (135-145); TOTAL CARBON DIOXIDE 31.8 MMOL/L (24-32); TOTAL PROTEIN 5.9 G/DL (6.4-8.2); eGFR 44 ML/MIN
[2021-12-07 02:31] LABS: BASOPHILS % (AUTO) 0.1 % (0-1); EOSINOPHILS % (AUTO) 0 % (0-6); HEMATOCRIT 32.1 % (35.0-45.0); HEMOGLOBIN 10.5 g/dl (12.0-16.0); LYMPHOCYTES # (AUTO) 1.1 X10'3 (1.1-4.8); LYMPHOCYTES % (AUTO) 6.4 % (21-51); MEAN CORPUSCULAR HEMOGLOBIN 27.9 PG (27.0-31.0); MEAN CORPUSCULAR HGB CONC 32.6 g/dL (33.0-36.5); MEAN CORPUSCULAR VOLUME 85.4 FL (78-98); MEAN PLATELET VOLUME 9.2 FL (7.4-10.4); MONOCYTES # (AUTO) 1.1 X10'3 (0-0.9); MONOCYTES % (AUTO) 6.3 % (2-12); NEUTROPHILS # (AUTO) 15.2 X10'3 (1.8-7.7); NEUTROPHILS % (AUTO) 87.2 % (42-75); PLATELET COUNT 225 X10'3 (140-440); RED BLOOD COUNT 3.75 X10'6 (4.20-5.60); RED CELL DISTRIBUTION WIDTH 17.7 % (11.5-14.5); WHITE BLOOD COUNT 17.4 X10'3 (4.5-11.0)
[2021-12-07] MEDS: insulin regular, human U-100 3ml vial - multi-dose SQ SCH ×2 (02:49→14:35)
[2021-12-07] MEDS: LORazepam 1 MG tablet PO SCH ×6 (02:50→23:31)
[2021-12-07] MEDS: potassium Cl 20mEq/100mL bag 100 ML IV PRN ×2 (03:58→05:20)
[2021-12-07] MEDS: docusate sodium 100mg/10ml UD cup OGT SCH ×2 (08:00→19:15)
[2021-12-07] MEDS: insulin glargine (Lantus) pen - multi-dose SQ SCH ×2 (08:00→19:41)
[2021-12-07] MEDS: famotidine 20mg tablet OGT SCH (08:00)
[2021-12-07] MEDS: NYSTATIN CREAM - 30GM TUBE TP SCH ×2 (08:30→19:17)
[2021-12-07] MEDS: mupirocin 2% ointment 22GM TP SCH ×2 (08:30→19:51)
[2021-12-07] MEDS: piperacillin/tazo 4.5gm/100ml 100 ML IV SCH ×3 (08:44→23:40)
[2021-12-07] MEDS: heparin, porcine 5000 units/ml vial SQ SCH ×2 (08:45→19:11)
[2021-12-07] MEDS: furosemide 40mg/4ml inj IV SCH (08:48)
[2021-12-07] MEDS: hydrocortisone sod succ/PF 100mg/2ml inj. IV SCH ×2 (08:48→19:12)
[2021-12-07] MEDS: HYDROmorphone inj. 0.5 MG/0.5 ML DISP.SYRIN IV PRN ×2 (08:53→16:35)
--- NOTE | 2021-12-07 11:24 | NUR ---
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 LBM 12/07 receiving routine colace per EMR. Will monitor for further TF tolerance and adjustment needs this admit. Recommendations: 1. Continuous TF per MD using Vital HP at 59 ml/hr goal; to provide 1416ml volume/day, 1416 kcal, 124 g protein, and 1068 ml water 2. Additional 100mL water flush Q4H; monitor serum Na 3. PALB q /; Daily scaled wts 4. Routine bowel care 5. DM ed when appropriate following extubation and pt made aware of DM by physician; A1C 8.3% with no prior hx or home DM meds per EMR Addendum: 12/07/21 at [address] Amended: Links added.
[2021-12-07] MEDS ORDERED: normal saline 500ml IV soln 500 ML IV ONE ×3 (15:40→18:50)
[2021-12-07] MEDS ORDERED: albumin (Human) 5% 250ml 250 ML IV ONE (18:10)
[2021-12-07 18:37] LABS: ABG BASE EXCESS 3.3 mmol/L (-2.0-2.0); ABG HCO3 25.7 mmol/L (22.0-26.0); ABG OXYGEN SATURATION 93.4 % (94-97); ABG PCO2 (T) 31.7 mmHg (32.0-45.0); ABG PO2 (T) 65.5 mmHg (75.0-100.0); ALLEN'S TEST POSITIVE; FCOHb 0.3 % (0.0-3.9); FMetHb 0.3 % (0.0-1.5); FO2Hb 92.8 % (94-97); PEEP 5 cm H2O; RESPIRATORY RATE 12 b/min; TIDAL VOLUME 400 mL; TOTAL HEMOGLOBIN 12.1 G/dl (12.0-16.0)
--- NOTE | 2021-12-07 18:48 | NUR ---
MD Blackwood rounding and at bedside. Read ABG and EKG. Order to admin 500mL bolus of NS.
[2021-12-07] MEDS: QUEtiapine 25mg tablet PO SCH (21:00)
[2021-12-08] VITALS (47 sets, daily range): BP systolic 77–164; BP diastolic 24–52
[2021-12-08 00:07] LABS: CLARITY,URINE SLIGHTLY CLOUDY (Clear); COLOR,URINE YELLOW (Yellow); GLUCOSE, URINE NEGATIVE (Neg); KETONES,URINE NEGATIVE (Neg); LEUKOCYTE ESTERASE ,URINE MODERATE (Neg); NITRITES, URINE NEGATIVE (Neg); OCCULT BLOOD,URINE MODERATE (Neg); PH,URINE 6.5 (4.8-8.0); PROTEIN,URINE TRACE mg/dl (Neg); UROBILINOGEN,URINE 0.2 E.U/dL (0.2-1.0)
[2021-12-08 00:10] LABS: UA COLLECTION TYPE CLN CATCH MIDSTREAM
[2021-12-08 00:23] LABS: WBC,URINE 30-50 /HPF (0-4)
[2021-12-08 00:25] LABS: BACTERIA,URINE NONE SEEN /HPF (Neg); MUCUS STRANDS NONE SEEN /LPF (Neg); SQUAMOUS EPITHELIAL CELL,UR NONE SEEN /LPF (FEW); YEAST MODERATE /HPF (NEGATIVE)
[2021-12-08] MEDS: dexmedetomidine/D5W 100mL 100 ML IV SCH ×3 (02:28→13:56)
[2021-12-08 03:41] LABS: BASOPHILS # (AUTO) 0.1 X10'3 (0-0.2); BASOPHILS % (AUTO) 0.3 % (0-1); EOSINOPHILS % (AUTO) 0.1 % (0-6); HEMATOCRIT 32.7 % (35.0-45.0); HEMOGLOBIN 10.5 g/dl (12.0-16.0); LYMPHOCYTES # (AUTO) 1.7 X10'3 (1.1-4.8); LYMPHOCYTES % (AUTO) 6.2 % (21-51); MEAN CORPUSCULAR HEMOGLOBIN 27.5 PG (27.0-31.0); MEAN CORPUSCULAR HGB CONC 32.2 g/dL (33.0-36.5); MEAN CORPUSCULAR VOLUME 85.2 FL (78-98); MEAN PLATELET VOLUME 9.4 FL (7.4-10.4); MONOCYTES # (AUTO) 0.6 X10'3 (0-0.9); MONOCYTES % (AUTO) 2.3 % (2-12); NEUTROPHILS # (AUTO) 24.8 X10'3 (1.8-7.7); NEUTROPHILS % (AUTO) 91.1 % (42-75); PLATELET COUNT 251 X10'3 (140-440); RED BLOOD COUNT 3.84 X10'6 (4.20-5.60); RED CELL DISTRIBUTION WIDTH 19.1 % (11.5-14.5)
[2021-12-08 03:57] LABS: ALANINE AMINOTRANSFERASE 26 U/L (12-78); ALBUMIN 2.1 G/DL (3.4-5.0); ALBUMIN/GLOBULIN RATIO 0.7 (1.1-1.5); ALKALINE PHOSPHATASE 46 IU/L (46-116); ANION GAP 4 (8-16); ASPARTATE AMINO TRANSFERASE 33 U/L (10-37); BILIRUBIN,TOTAL 0.8 MG/DL (0.1-1.0); BLOOD UREA NITROGEN 33 MG/DL (7-18); BUN/CREATININE RATIO 27.3 (6.6-38.0); CALCIUM 7.6 MG/DL (8.5-10.1); CHLORIDE 103 MMOL/L (99-107); CREATININE 1.21 MG/DL (0.40-0.90); GLUCOSE 117 MG/DL (70-104); MAGNESIUM 1.8 MG/DL (1.5-2.4); PHOSPHORUS 3.6 MG/DL (2.3-4.5); SODIUM 139 MMOL/L (135-145); TOTAL CARBON DIOXIDE 31.6 MMOL/L (24-32); TOTAL PROTEIN 5.2 G/DL (6.4-8.2); eGFR 43 ML/MIN
[2021-12-08 03:59] LABS: WHITE BLOOD COUNT 27.3 X10'3 (4.5-11.0)
[2021-12-08] MEDS: LORazepam 1 MG tablet PO SCH ×6 (04:00→23:20)
[2021-12-08 04:06] LABS: POTASSIUM 2.4 MMOL/L (3.5-5.1)
[2021-12-08] MEDS: potassium Cl 20mEq/100mL bag 100 ML IV PRN ×2 (04:18→04:19)
[2021-12-08 05:09] LABS: ABG HCO3 24.8 mmol/L (22.0-26.0); ABG OXYGEN SATURATION 94.6 % (94-97); ABG PCO2 (T) 28.7 mmHg (32.0-45.0); ABG PO2 (T) 68.8 mmHg (75.0-100.0); FCOHb 0.1 % (0.0-3.9); FMetHb 0.2 % (0.0-1.5); FO2Hb 94.3 % (94-97); PEEP 5 cm H2O; RESPIRATORY RATE 12 b/min; TIDAL VOLUME 400 mL
[2021-12-08 06:29] LABS: ANISOCYTOSIS 2+; PLATELET ESTIMATE NORMAL; TOTAL CELLS COUNTED 100
[2021-12-08] MEDS: insulin regular, human U-100 3ml vial - multi-dose SQ SCH ×2 (07:34→14:38)
[2021-12-08] MEDS: piperacillin/tazo 4.5gm/100ml 100 ML IV SCH ×3 (07:38→23:20)
[2021-12-08] MEDS: POTASSIUM BICARB 20meq eff tab 20 MEQ TABLET.EFF PO SCH ×2 (07:38→12:40)
[2021-12-08] MEDS: famotidine 20mg tablet OGT SCH (07:39)
[2021-12-08] MEDS: hydrocortisone sod succ/PF 100mg/2ml inj. IV SCH ×2 (07:39→19:06)
[2021-12-08] MEDS: heparin, porcine 5000 units/ml vial SQ SCH ×2 (07:39→19:06)
[2021-12-08] MEDS: mupirocin 2% ointment 22GM TP SCH ×2 (08:52→19:07)
[2021-12-08] MEDS: NYSTATIN CREAM - 30GM TUBE TP SCH ×2 (08:53→19:07)
[2021-12-08] MEDS: insulin glargine (Lantus) pen - multi-dose SQ SCH ×2 (08:57→19:16)
[2021-12-08] MEDS ORDERED: normal saline 1000ml 1,000 ML IV ONE (09:35)
[2021-12-08] MEDS ORDERED: QUEtiapine 25mg tablet PO ONE (10:50)
[2021-12-08] MEDS ORDERED: NORepinephrine 8mg/ 250ml NS 250 ML IV ONE (11:31)
[2021-12-08] MEDS: NORepinephrine 8mg/ 250ml NS 250 ML IV SCH (11:45)
[2021-12-08] MEDS ORDERED: VANCOmycin 1250MG/NS 250ml Bag 250 ML IV STA (11:52)
[2021-12-08] MEDS ORDERED: vancomycin 1,750 MG in NS 350ml IV soln IV ONE (12:30)
[2021-12-08] MEDS: QUEtiapine 25mg tablet PO SCH (21:00)
[2021-12-09] VITALS (30 sets, daily range): BP systolic 82–213; BP diastolic 24–64
--- NOTE | 2021-12-09 00:39 | NUR ---
Pt has not voided since removal of F/C. Removed during AM shift at approx 1600. Bladder scanned 1140. Not able to obtain measurement d/t edema. Called Dr. Zarco. Order to place bustos. 300mL of urine out upon placement.
[2021-12-09] MEDS: dexmedetomidine/D5W 100mL 100 ML IV SCH ×3 (01:14→23:17)
[2021-12-09] MEDS: LORazepam 1 MG tablet PO SCH ×6 (03:37→23:13)
[2021-12-09] MEDS: insulin regular, human U-100 3ml vial - multi-dose SQ SCH ×2 (05:50→22:07)
--- NOTE | 2021-12-09 05:55 | NUR ---
pt is very restless. Thrashing in bed. Unable to console.
[2021-12-09] MEDS: NORepinephrine 8mg/ 250ml NS 250 ML IV SCH (06:09)
[2021-12-09] MEDS: hydrocortisone sod succ/PF 100mg/2ml inj. IV SCH ×2 (08:52→20:00)
[2021-12-09] MEDS: piperacillin/tazo 4.5gm/100ml 100 ML IV SCH ×3 (08:52→23:10)
[2021-12-09] MEDS: heparin, porcine 5000 units/ml vial SQ SCH ×2 (08:53→20:00)
[2021-12-09] MEDS: famotidine 20mg tablet OGT SCH (08:53)
[2021-12-09] MEDS: insulin glargine (Lantus) pen - multi-dose SQ SCH ×2 (09:00→20:00)
[2021-12-09] MEDS: NYSTATIN CREAM - 30GM TUBE TP SCH ×2 (09:04→20:00)
[2021-12-09] MEDS: mupirocin 2% ointment 22GM TP SCH ×2 (09:04→20:00)
[2021-12-09 10:55] LABS: BASOPHILS % (AUTO) 0 % (0-1); EOSINOPHILS # (AUTO) 0.1 X10'3 (0-0.9); EOSINOPHILS % (AUTO) 0.6 % (0-6); HEMATOCRIT 24.6 % (35.0-45.0); HEMOGLOBIN 7.9 g/dl (12.0-16.0); LYMPHOCYTES # (AUTO) 1.1 X10'3 (1.1-4.8); MEAN CORPUSCULAR HEMOGLOBIN 27.5 PG (27.0-31.0); MEAN CORPUSCULAR HGB CONC 32.1 g/dL (33.0-36.5); MEAN CORPUSCULAR VOLUME 85.7 FL (78-98); MONOCYTES # (AUTO) 0.5 X10'3 (0-0.9); MONOCYTES % (AUTO) 4.2 % (2-12); NEUTROPHILS # (AUTO) 10.4 X10'3 (1.8-7.7); NEUTROPHILS % (AUTO) 86.2 % (42-75); PLATELET COUNT 123 X10'3 (140-440); RED BLOOD COUNT 2.87 X10'6 (4.20-5.60); RED CELL DISTRIBUTION WIDTH 18.5 % (11.5-14.5); WHITE BLOOD COUNT 12.1 X10'3 (4.5-11.0)
[2021-12-09 11:04] LABS: ALANINE AMINOTRANSFERASE 19 U/L (12-78); ALBUMIN 1.6 G/DL (3.4-5.0); ALBUMIN/GLOBULIN RATIO 0.5 (1.1-1.5); ALKALINE PHOSPHATASE 43 IU/L (46-116); ANION GAP 10 (8-16); ASPARTATE AMINO TRANSFERASE 21 U/L (10-37); BILIRUBIN,TOTAL 0.5 MG/DL (0.1-1.0); BLOOD UREA NITROGEN 30 MG/DL (7-18); CALCIUM 7.5 MG/DL (8.5-10.1); CHLORIDE 104 MMOL/L (99-107); CREATININE 1.11 MG/DL (0.40-0.90); GLUCOSE 159 MG/DL (70-104); MAGNESIUM 1.8 MG/DL (1.5-2.4); PHOSPHORUS 2.2 MG/DL (2.3-4.5); SODIUM 142 MMOL/L (135-145); TOTAL CARBON DIOXIDE 28.5 MMOL/L (24-32); TOTAL PROTEIN 4.9 G/DL (6.4-8.2); eGFR 47 ML/MIN
[2021-12-09 11:06] LABS: POTASSIUM 2.2 MMOL/L (3.5-5.1)
[2021-12-09] MEDS: potassium Cl 20mEq/100mL bag 100 ML IV PRN ×3 (11:42→14:25)
[2021-12-09] MEDS: VANCOMYCIN 750MG IV in NS 250 ML IV SCH (13:14)
[2021-12-09] MEDS ORDERED: iohexol 350MG/ML 100ml bottle IV ONE (14:42)
[2021-12-09] MEDS ORDERED: diatr meglu/diatrizoate 30ml oral sol.-(3 dose) bottle PO SCH (16:30)
[2021-12-09] MEDS ORDERED: tPA-cathflo 2 MG/2 ml IV flush IVF ONE (17:05)
[2021-12-09] MEDS ORDERED: diatrozoate meglu/diatrozoate sod (37% iodine) 120ML oral solution PO ONE (18:50)
[2021-12-09 19:22] LABS: BASOPHILS % (AUTO) 0.1 % (0-1); EOSINOPHILS # (AUTO) 0.1 X10'3 (0-0.9); EOSINOPHILS % (AUTO) 1.2 % (0-6); HEMATOCRIT 23.8 % (35.0-45.0); HEMOGLOBIN 7.8 g/dl (12.0-16.0); LYMPHOCYTES % (AUTO) 9.6 % (21-51); MEAN CORPUSCULAR HEMOGLOBIN 28.2 PG (27.0-31.0); MEAN CORPUSCULAR HGB CONC 32.9 g/dL (33.0-36.5); MEAN CORPUSCULAR VOLUME 85.8 FL (78-98); MEAN PLATELET VOLUME 9.1 FL (7.4-10.4); MONOCYTES # (AUTO) 0.3 X10'3 (0-0.9); MONOCYTES % (AUTO) 3.2 % (2-12); NEUTROPHILS # (AUTO) 8.9 X10'3 (1.8-7.7); NEUTROPHILS % (AUTO) 85.9 % (42-75); PLATELET COUNT 104 X10'3 (140-440); RED BLOOD COUNT 2.77 X10'6 (4.20-5.60); RED CELL DISTRIBUTION WIDTH 18.6 % (11.5-14.5); WHITE BLOOD COUNT 10.3 X10'3 (4.5-11.0)
[2021-12-09] MEDS ORDERED: diatr meglu/diatrizoate 30ml oral sol.-(3 dose) bottle PO ONE ×2 (19:35)
[2021-12-09] MEDS ORDERED: LIDOcaine 1% 30ml preserv. free vial ONE (19:40)
[2021-12-09] MEDS ORDERED: BUPIVACAINE liposomal/PF 13.3 MG/ML vial IM ONE (19:40)
[2021-12-09] MEDS ORDERED: BUPIVAcaine 0.5% inj/PF 0 ML ONE (19:40)
[2021-12-09] MEDS ORDERED: sevoflurane 250ml liquid IH ONE (20:00)
[2021-12-09] MEDS ORDERED: rocuronium 10mg/ml inj IV ONE (20:10)
[2021-12-09] MEDS ORDERED: MIDAZolam 1 MG/ML 5ML VIAL ONE (20:13)
[2021-12-09] MEDS ORDERED: FENTANYL CITRATE/PF 50 MCG/1 ML VIAL ONE (20:13)
[2021-12-09 20:23] LABS: ALANINE AMINOTRANSFERASE 22 U/L (12-78); ALBUMIN 1.6 G/DL (3.4-5.0); ALBUMIN/GLOBULIN RATIO 0.5 (1.1-1.5); ALKALINE PHOSPHATASE 51 IU/L (46-116); ANION GAP 9 (8-16); APTT 39 SECONDS (22-32); ASPARTATE AMINO TRANSFERASE 20 U/L (10-37); BILIRUBIN,TOTAL 0.5 MG/DL (0.1-1.0); BLOOD UREA NITROGEN 29 MG/DL (7-18); BUN/CREATININE RATIO 29.3 (6.6-38.0); CALCIUM 7.6 MG/DL (8.5-10.1); CHLORIDE 102 MMOL/L (99-107); CREATININE 0.99 MG/DL (0.40-0.90); GLUCOSE 202 MG/DL (70-104); MAGNESIUM 1.6 MG/DL (1.5-2.4); POTASSIUM 3.2 MMOL/L (3.5-5.1); SODIUM 136 MMOL/L (135-145); TOTAL CARBON DIOXIDE 25.2 MMOL/L (24-32); TOTAL PROTEIN 5.1 G/DL (6.4-8.2); eGFR 54 ML/MIN
[2021-12-09] MEDS ORDERED: albumin (Human) 5% 250ml 250 ML IV ONE (20:25)
[2021-12-09] MEDS: QUEtiapine 25mg tablet PO SCH (21:00)
[2021-12-09 22:09] LABS: ANISOCYTOSIS 2+; PLATELET ESTIMATE DECREASED; POLYCHROMASIA FEW
[2021-12-09 22:15] LABS: BASOPHILS % (AUTO) 0.1 % (0-1); EOSINOPHILS # (AUTO) 0.2 X10'3 (0-0.9); EOSINOPHILS % (AUTO) 1.5 % (0-6); HEMATOCRIT 25.8 % (35.0-45.0); HEMOGLOBIN 8.2 g/dl (12.0-16.0); LYMPHOCYTES # (AUTO) 0.8 X10'3 (1.1-4.8); LYMPHOCYTES % (AUTO) 6.2 % (21-51); MEAN CORPUSCULAR HEMOGLOBIN 27.4 PG (27.0-31.0); MEAN CORPUSCULAR VOLUME 85.8 FL (78-98); MEAN PLATELET VOLUME 8.4 FL (7.4-10.4); MONOCYTES # (AUTO) 0.5 X10'3 (0-0.9); MONOCYTES % (AUTO) 3.5 % (2-12); NEUTROPHILS # (AUTO) 11.5 X10'3 (1.8-7.7); NEUTROPHILS % (AUTO) 88.7 % (42-75); PLATELET COUNT 142 X10'3 (140-440); RED BLOOD COUNT 3.01 X10'6 (4.20-5.60); RED CELL DISTRIBUTION WIDTH 18.5 % (11.5-14.5)
[2021-12-09 22:26] LABS: ALBUMIN 1.8 G/DL (3.4-5.0); ANION GAP 5 (8-16); BLOOD UREA NITROGEN 28 MG/DL (7-18); BUN/CREATININE RATIO 26.9 (6.6-38.0); CALCIUM 7.4 MG/DL (8.5-10.1); CHLORIDE 103 MMOL/L (99-107); CREATININE 1.04 MG/DL (0.40-0.90); GLUCOSE 209 MG/DL (70-104); MAGNESIUM 1.8 MG/DL (1.5-2.4); POTASSIUM 3.2 MMOL/L (3.5-5.1); SODIUM 135 MMOL/L (135-145); TOTAL CARBON DIOXIDE 27.1 MMOL/L (24-32); eGFR 51 ML/MIN
[2021-12-10] VITALS (38 sets, daily range): BP systolic 127–200; BP diastolic 37–63
[2021-12-10] MEDS: NORepinephrine 8mg/ 250ml NS 250 ML IV SCH ×2 (00:28→18:47)
[2021-12-10] MEDS: insulin regular, human U-100 3ml vial - multi-dose SQ SCH ×4 (01:58→20:51)
[2021-12-10 02:04] LABS: BASOPHILS # (AUTO) 0.1 X10'3 (0-0.2); BASOPHILS % (AUTO) 0.3 % (0-1); EOSINOPHILS # (AUTO) 0.1 X10'3 (0-0.9); EOSINOPHILS % (AUTO) 0.6 % (0-6); HEMATOCRIT 28.1 % (35.0-45.0); HEMOGLOBIN 9.2 g/dl (12.0-16.0); LYMPHOCYTES # (AUTO) 0.6 X10'3 (1.1-4.8); LYMPHOCYTES % (AUTO) 4.2 % (21-51); MEAN CORPUSCULAR HGB CONC 32.8 g/dL (33.0-36.5); MEAN CORPUSCULAR VOLUME 85.4 FL (78-98); MEAN PLATELET VOLUME 8.5 FL (7.4-10.4); MONOCYTES # (AUTO) 0.4 X10'3 (0-0.9); MONOCYTES % (AUTO) 2.6 % (2-12); NEUTROPHILS % (AUTO) 92.3 % (42-75); PLATELET COUNT 154 X10'3 (140-440); RED BLOOD COUNT 3.29 X10'6 (4.20-5.60); RED CELL DISTRIBUTION WIDTH 18.7 % (11.5-14.5); WHITE BLOOD COUNT 15.2 X10'3 (4.5-11.0)
[2021-12-10 02:17] LABS: ALBUMIN 1.8 G/DL (3.4-5.0); ANION GAP 10 (8-16); BLOOD UREA NITROGEN 26 MG/DL (7-18); BUN/CREATININE RATIO 25.2 (6.6-38.0); CALCIUM 7.6 MG/DL (8.5-10.1); CHLORIDE 102 MMOL/L (99-107); CREATININE 1.03 MG/DL (0.40-0.90); GLUCOSE 184 MG/DL (70-104); SODIUM 136 MMOL/L (135-145); TOTAL CARBON DIOXIDE 23.6 MMOL/L (24-32); TRIGLYCERIDES 128 MG/DL (20-135); eGFR 52 ML/MIN
[2021-12-10 02:24] LABS: POTASSIUM 2.9 MMOL/L (3.5-5.1)
[2021-12-10] MEDS: potassium Cl 20mEq/100mL bag 100 ML IV PRN ×4 (02:29→06:53)
[2021-12-10 03:13] LABS: ABG BASE EXCESS 2.1 mmol/L (-2.0-2.0); ABG HCO3 23.9 mmol/L (22.0-26.0); ABG OXYGEN SATURATION 91.5 % (94-97); ABG PO2 (T) 55.7 mmHg (75.0-100.0); ALLEN'S TEST POSITIVE; FCOHb 0.3 % (0.0-3.9); FMetHb 0.2 % (0.0-1.5); PEEP 5 cm H2O; RESPIRATORY RATE 12 b/min; TIDAL VOLUME 400 mL; TOTAL HEMOGLOBIN 10.1 G/dl (12.0-16.0)
[2021-12-10] MEDS: LORazepam 1 MG tablet PO SCH ×5 (04:00→20:00)
[2021-12-10] MEDS: ringers solution, lacted 1,000 ML IV SCH ×2 (05:08→18:52)
--- NOTE | 2021-12-10 06:31 | NUR ---
Problems reprioritized. Patient report given, questions answered & plan of care reviewed with MEÑO Mathew.
[2021-12-10] MEDS: dexmedetomidine/D5W 100mL 100 ML IV SCH (06:53)
[2021-12-10] MEDS: hydrocortisone sod succ/PF 100mg/2ml inj. IV SCH ×2 (07:43→20:39)
[2021-12-10] MEDS: piperacillin/tazo 4.5gm/100ml 100 ML IV SCH ×2 (07:43→15:52)
[2021-12-10] MEDS: heparin, porcine 5000 units/ml vial SQ SCH ×2 (07:44→20:40)
[2021-12-10] MEDS: famotidine 20mg tablet OGT SCH (07:49)
[2021-12-10] MEDS: mupirocin 2% ointment 22GM TP SCH ×2 (07:50→20:42)
[2021-12-10] MEDS: NYSTATIN CREAM - 30GM TUBE TP SCH ×2 (07:52→20:42)
[2021-12-10] MEDS: insulin glargine (Lantus) pen - multi-dose SQ SCH ×2 (08:00→20:00)
--- NOTE | 2021-12-10 12:00 | NUR ---
F/u 12/10: Pt remains intubated DX pneumoperitoneum and peritonitis s/p OR yesterday for ex lap, lysis of adhesions, and GJ tube placement per EMR. Pt remains NPO at this time w/ EN to resume per surgeon discretion per waiter/waitress take out this AM. Noted now BMI 29.1 w/ -7.9kg and negative 2.9L cumulative fluid balance this admit; no change to EN recs at this time as most recent PALB WNL 12/03; pending updated PALB in EMR. Pt s/p rectal tube 12/07 w/ -550ml output 12/07-12/08 though last documented BM 12/01 per EMR; likely constipation resolution. Will monitor for further nutrition intervention needs and EN adjustment needs following wt trends post-op. Recommendations: 1. Once TF to resume via GJ; continuous TF using Vital HP at 59 ml/hr goal; to provide 1416ml volume/day, 1416 kcal, 124 g protein, and 1068 ml water 2. Once TF resumes; Additional 100mL water flush Q4H; monitor serum Na 3. PALB q /; Daily scaled wts 4. Monitor for wt trends and EN adjustment needs as medically indicated 5. bowel care per rx 6. DM ed when appropriate following extubation and pt made aware of DM by physician; A1C 8.3% with no prior hx or home DM meds per EMR Addendum: 12/10/21 at [address] Amended: Links added.
[2021-12-10 12:04] LABS: ALANINE AMINOTRANSFERASE 21 U/L (12-78); ALBUMIN 1.7 G/DL (3.4-5.0); ALBUMIN/GLOBULIN RATIO 0.5 (1.1-1.5); ALKALINE PHOSPHATASE 51 IU/L (46-116); ANION GAP 11 (8-16); ASPARTATE AMINO TRANSFERASE 20 U/L (10-37); BILIRUBIN,TOTAL 0.7 MG/DL (0.1-1.0); BLOOD UREA NITROGEN 23 MG/DL (7-18); BUN/CREATININE RATIO 21.3 (6.6-38.0); CALCIUM 7.5 MG/DL (8.5-10.1); CHLORIDE 102 MMOL/L (99-107); CREATININE 1.08 MG/DL (0.40-0.90); GLUCOSE 203 MG/DL (70-104); SODIUM 136 MMOL/L (135-145); TOTAL PROTEIN 5.3 G/DL (6.4-8.2); eGFR 49 ML/MIN
[2021-12-10] MEDS: VANCOMYCIN 750MG IV in NS 250 ML IV SCH (12:26)
[2021-12-10 12:43] LABS: PREALBUMIN 11.8 MG/DL (19-36)
[2021-12-10] MEDS: labetalol 20mg/4ml (5mg/ml) syringe IV PRN ×4 (15:08→22:42)
[2021-12-10] MEDS: hydrALAZINE 20mg/ml inj. IV PRN ×2 (16:25→21:32)
[2021-12-10] MEDS: QUEtiapine 25mg tablet PO SCH (21:00)
[2021-12-11] VITALS (34 sets, daily range): BP systolic 156–198; BP diastolic 44–120
[2021-12-11] MEDS: piperacillin/tazo 4.5gm/100ml 100 ML IV SCH ×4 (00:05→23:38)
[2021-12-11] MEDS: labetalol 20mg/4ml (5mg/ml) syringe IV PRN ×4 (00:56→20:33)
[2021-12-11] MEDS: hydrALAZINE 20mg/ml inj. IV PRN ×4 (02:13→22:29)
[2021-12-11] MEDS: insulin regular, human U-100 3ml vial - multi-dose SQ SCH ×4 (02:21→20:42)
[2021-12-11 02:39] LABS: BASOPHILS % (AUTO) 0.1 % (0-1); EOSINOPHILS % (AUTO) 0.3 % (0-6); HEMATOCRIT 27.6 % (35.0-45.0); HEMOGLOBIN 8.9 g/dl (12.0-16.0); LYMPHOCYTES # (AUTO) 0.5 X10'3 (1.1-4.8); LYMPHOCYTES % (AUTO) 4.5 % (21-51); MEAN CORPUSCULAR HEMOGLOBIN 27.4 PG (27.0-31.0); MEAN CORPUSCULAR HGB CONC 32.3 g/dL (33.0-36.5); MEAN CORPUSCULAR VOLUME 84.7 FL (78-98); MEAN PLATELET VOLUME 8.9 FL (7.4-10.4); MONOCYTES # (AUTO) 0.5 X10'3 (0-0.9); MONOCYTES % (AUTO) 4.5 % (2-12); NEUTROPHILS # (AUTO) 9.3 X10'3 (1.8-7.7); NEUTROPHILS % (AUTO) 90.6 % (42-75); PLATELET COUNT 137 X10'3 (140-440); RED BLOOD COUNT 3.26 X10'6 (4.20-5.60); RED CELL DISTRIBUTION WIDTH 18.8 % (11.5-14.5); WHITE BLOOD COUNT 10.3 X10'3 (4.5-11.0)
[2021-12-11 02:57] LABS: ALBUMIN 1.7 G/DL (3.4-5.0); ANION GAP 12 (8-16); BLOOD UREA NITROGEN 23 MG/DL (7-18); CHLORIDE 104 MMOL/L (99-107); CREATININE 0.92 MG/DL (0.40-0.90); GLUCOSE 192 MG/DL (70-104); MAGNESIUM 1.9 MG/DL (1.5-2.4); PHOSPHORUS 3.5 MG/DL (2.3-4.5); SODIUM 139 MMOL/L (135-145); TOTAL CARBON DIOXIDE 23.4 MMOL/L (24-32); eGFR 59 ML/MIN
[2021-12-11] MEDS: potassium Cl 20mEq/100mL bag 100 ML IV PRN ×4 (03:15→09:55)
[2021-12-11 03:22] LABS: ABG BASE EXCESS 0.2 mmol/L (-2.0-2.0); ABG HCO3 21.6 mmol/L (22.0-26.0); ABG OXYGEN SATURATION 96.2 % (94-97); ABG PCO2 (T) 24.1 mmHg (32.0-45.0); ABG PO2 (T) 73.7 mmHg (75.0-100.0); FCOHb 0.3 % (0.0-3.9); FMetHb 0.3 % (0.0-1.5); FO2Hb 95.6 % (94-97); PATIENT TEMPERATURE 36.2; TOTAL HEMOGLOBIN 10.2 G/dl (12.0-16.0)
[2021-12-11] MEDS: LORazepam 1 MG tablet PO SCH ×4 (04:00→11:24)
[2021-12-11 04:53] LABS: ANISOCYTOSIS 2+; PLATELET ESTIMATE DECREASED; POLYCHROMASIA FEW
--- NOTE | 2021-12-11 06:00 | NUR ---
Patient in room ICU 2040. I have received report from Ana WILDER and had the opportunity to ask questions and assume patient care.
[2021-12-11] MEDS: famotidine 20mg tablet OGT SCH (07:01)
[2021-12-11] MEDS: insulin glargine (Lantus) pen - multi-dose SQ SCH ×2 (07:02→20:43)
[2021-12-11] MEDS: hydrocortisone sod succ/PF 100mg/2ml inj. IV SCH ×2 (07:30→20:21)
[2021-12-11] MEDS: ringers solution, lacted 1,000 ML IV SCH ×2 (07:39→20:40)
[2021-12-11] MEDS: heparin, porcine 5000 units/ml vial SQ SCH ×2 (07:40→20:21)
[2021-12-11] MEDS: NYSTATIN CREAM - 30GM TUBE TP SCH ×2 (07:41→20:22)
[2021-12-11] MEDS: mupirocin 2% ointment 22GM TP SCH ×2 (07:41→20:22)
--- NOTE | 2021-12-11 11:58 | NUR ---
Spoke with Dr. Borjas at bedside. MD examined abd surgical wound and took dressing off. Stated okay to leave open to air unless draining okay to cover with gauze. MD also ordered to start trickle tube feeds for 24hrs through J Tube and no need to check residuals, and okay to give meds through J Tube. MD stated to leave gastric drain in place with TFs.
[2021-12-11] MEDS ORDERED: lisinopril 10 MG tablet PO SCH (12:00)
--- NOTE | 2021-12-11 12:05 | NUR ---
MEÑO TC: Pt okay to start trickle feeds via GJ for next 24 hrs then okay to advance as tolerated per surgeon. MD notified of updated TF recs at this time; will monitor for TF tolerance and adjustment needs. Recommendations: 1. Trickle TF at 20ml/hr for next 24hr per MD using Vital High Protein at 20ml/hr goal; to provide 480ml volume/day, 480 kcals, 401ml water, and 42g protein. 2. advance continuous TF after 24hr period to prior goal rate as tolerated: Vital HP at 59ml/hr goal to provide 1416ml volume/day, 1416 kcal, 124 g protein, and 1184ml water 3. Additional 100mL water flush Q4H; monitor serum Na 4. PALB q /; Daily scaled wts 5. Monitor for wt trends and EN adjustment needs as medically indicated 6. bowel care per rx 7. DM ed when appropriate following extubation and pt made aware of DM by physician; A1C 8.3% with no prior hx or home DM meds per EMR Addendum: 12/11/21 at [address] Amended: Links added.
[2021-12-11] MEDS ORDERED: VANCOMYCIN LEVEL IV ONE (12:30)
[2021-12-11] MEDS: NORepinephrine 8mg/ 250ml NS 250 ML IV SCH (13:06)
[2021-12-11] MEDS: VANCOMYCIN 750MG IV in NS 250 ML IV SCH (13:56)
[2021-12-11] MEDS ORDERED: VANCOMYCIN 750MG IV in NS 250 ML IV ONE (14:25)
--- NOTE | 2021-12-11 18:23 | NUR ---
Problems reprioritized. Patient report given, questions answered & plan of care reviewed with Ana WILDER.
[2021-12-12] VITALS (30 sets, daily range): BP systolic 153–186; BP diastolic 48–86
[2021-12-12] MEDS: VANCOMYCIN 750MG IV in NS 250 ML IV SCH ×2 (00:37→13:30)
[2021-12-12] MEDS: insulin regular, human U-100 3ml vial - multi-dose SQ SCH ×3 (02:07→20:28)
[2021-12-12 02:47] LABS: BASOPHILS % (AUTO) 0.2 % (0-1); EOSINOPHILS % (AUTO) 0.3 % (0-6); HEMATOCRIT 26.8 % (35.0-45.0); HEMOGLOBIN 8.9 g/dl (12.0-16.0); LYMPHOCYTES # (AUTO) 0.6 X10'3 (1.1-4.8); MEAN CORPUSCULAR HGB CONC 33.2 g/dL (33.0-36.5); MEAN CORPUSCULAR VOLUME 84.5 FL (78-98); MEAN PLATELET VOLUME 8.8 FL (7.4-10.4); MONOCYTES # (AUTO) 0.5 X10'3 (0-0.9); NEUTROPHILS # (AUTO) 8.4 X10'3 (1.8-7.7); NEUTROPHILS % (AUTO) 88.5 % (42-75); PLATELET COUNT 157 X10'3 (140-440); RED BLOOD COUNT 3.17 X10'6 (4.20-5.60); RED CELL DISTRIBUTION WIDTH 18.7 % (11.5-14.5); WHITE BLOOD COUNT 9.5 X10'3 (4.5-11.0)
[2021-12-12 03:01] LABS: ALBUMIN 1.6 G/DL (3.4-5.0); ANION GAP 12 (8-16); BLOOD UREA NITROGEN 25 MG/DL (7-18); BUN/CREATININE RATIO 32.5 (6.6-38.0); CALCIUM 7.9 MG/DL (8.5-10.1); CHLORIDE 104 MMOL/L (99-107); CREATININE 0.77 MG/DL (0.40-0.90); GLUCOSE 181 MG/DL (70-104); MAGNESIUM 1.9 MG/DL (1.5-2.4); SODIUM 141 MMOL/L (135-145); TOTAL CARBON DIOXIDE 25.1 MMOL/L (24-32); eGFR 72 ML/MIN
[2021-12-12 03:06] LABS: POTASSIUM 2.4 MMOL/L (3.5-5.1)
[2021-12-12] MEDS: potassium Cl 20mEq/100mL bag 100 ML IV PRN ×4 (03:12→14:46)
[2021-12-12] MEDS: labetalol 20mg/4ml (5mg/ml) syringe IV PRN (03:40)
[2021-12-12 04:18] LABS: ABG BASE EXCESS 2.3 mmol/L (-2.0-2.0); ABG HCO3 23.9 mmol/L (22.0-26.0); ABG OXYGEN SATURATION 97.1 % (94-97); ABG PCO2 (T) 26.5 mmHg (32.0-45.0); ABG PO2 (T) 82.6 mmHg (75.0-100.0); ALLEN'S TEST Modified; FCOHb 0.3 % (0.0-3.9); FMetHb 0.2 % (0.0-1.5); FO2Hb 96.6 % (94-97); PATIENT TEMPERATURE 36.6; TOTAL HEMOGLOBIN 9.4 G/dl (12.0-16.0)
[2021-12-12] MEDS: POTASSIUM BICARB 20meq eff tab 20 MEQ TABLET.EFF PO SCH ×3 (05:03→17:30)
--- NOTE | 2021-12-12 06:23 | NUR ---
Problems reprioritized. Patient report given, questions answered & plan of care reviewed with MEÑO Joaquin.
[2021-12-12] MEDS: NYSTATIN CREAM - 30GM TUBE TP SCH ×2 (08:00→20:21)
[2021-12-12] MEDS: insulin glargine (Lantus) pen - multi-dose SQ SCH ×2 (08:00→20:29)
[2021-12-12] MEDS: mupirocin 2% ointment 22GM TP SCH ×2 (08:00→20:21)
[2021-12-12] MEDS: piperacillin/tazo 4.5gm/100ml 100 ML IV SCH ×2 (08:00→14:54)
[2021-12-12] MEDS: heparin, porcine 5000 units/ml vial SQ SCH ×2 (08:00→20:22)
[2021-12-12] MEDS: famotidine 20mg tablet OGT SCH (08:00)
[2021-12-12 09:26] LABS: ALBUMIN 1.5 G/DL (3.4-5.0); BLOOD UREA NITROGEN 26 MG/DL (7-18); BUN/CREATININE RATIO 30.2 (6.6-38.0); CALCIUM 7.9 MG/DL (8.5-10.1); CREATININE 0.86 MG/DL (0.40-0.90); GLUCOSE 162 MG/DL (70-104); TOTAL CARBON DIOXIDE 27.3 MMOL/L (24-32); eGFR 64 ML/MIN
[2021-12-12] MEDS: hydrALAZINE 20mg/ml inj. IV PRN ×3 (09:30→18:56)
[2021-12-12] MEDS: ringers solution, lacted 1,000 ML IV SCH ×2 (10:30→23:20)
[2021-12-12] MEDS: lisinopril 20mg tablet PO SCH (10:34)
--- NOTE | 2021-12-12 10:37 | NUR ---
PRESSURE ULCER EDUCATION: DEFINITION: A pressure ulcer is an area of skin that breaks down when you stay in one position too long. The constant pressure against the skin reduces the blood flow to that area and the affected tissue dies. CAUSES: "Being bedridden or in a wheelchair "Fragile skin "Having a chronic condition, such as diabetes or vascular disease "Inability to move certain parts of your body without assistance "Older age "Incontinence of urine or stool SYMPTOMS: "A reddened area that DOES NOT turn white when pressed on - this can be the beginning of a pressure ulcer "A blister, deep sore or a crater - these can be advanced pressure ulcers FIRST AID: "Relieve the pressure on this area "Keep the area clean and dry "Call your primary doctor if you see any of the above symptoms "DO NOT massage the area "DO NOT use a donut shaped or ring shaped pillow- these actually interfere with the blood flow and cause complications PREVENTION: "Check for pressure ulcers everyday "Change position at least every two hours to relieve pressure "Use items that help relieve pressure- pillows, sheepskin, foam padding, and powders. "Keep skin clean and dry "Eat healthy well balanced meals "Exercise daily IF YOU SEE ANY OF THESE SYMPTOMS WHILE IN THE HOSPITAL - TELL YOUR NURSE IMMEDIATELY. IF YOU SEE ANY OF THESE SYMPTOMS WHILE AT HOME OR HAVE ANY QUESTIONS OR CONCERNS ABOUT PRESSURE ULCERS - CALL YOUR PRIMARY DOCTOR IMMEDIATELY. Addendum: 12/12/21 at 1037 by Thelma Fry LVN Amended: Links added.
[2021-12-12 10:59] LABS: ANION GAP 9 (8-16); CHLORIDE 105 MMOL/L (99-107); SODIUM 141 MMOL/L (135-145)
[2021-12-12 11:03] LABS: POTASSIUM 2.8 MMOL/L (3.5-5.1)
--- NOTE | 2021-12-12 11:32 | NUR ---
F/u 12/12: Pt TF to advanced to 25ml/hr last night since pump would not run at 20ml/hr overnight per RN; to advance to 35ml/hr per MD this AM. Pt tolerating trickle feeds; see TF advancement recs in EMR. Addendum: 12/12/21 at [address] Amended: Links added.
[2021-12-12] MEDS ORDERED: furosemide 40mg/4ml inj ONE (17:16)
[2021-12-12] MEDS ORDERED: furosemide 40mg/4ml inj IV ONE (17:20)
[2021-12-13] VITALS (24 sets, daily range): BP systolic 146–190; BP diastolic 45–66
[2021-12-13] MEDS ORDERED: VANCOMYCIN LEVEL IV ONE (00:30)
[2021-12-13] MEDS: piperacillin/tazo 4.5gm/100ml 100 ML IV SCH ×3 (00:59→16:05)
[2021-12-13] MEDS: VANCOMYCIN 750MG IV in NS 250 ML IV SCH (01:15)
[2021-12-13] MEDS: hydrALAZINE 20mg/ml inj. IV PRN ×2 (02:19→07:41)
[2021-12-13] MEDS: insulin regular, human U-100 3ml vial - multi-dose SQ SCH ×3 (02:25→20:17)
[2021-12-13 02:52] LABS: BASOPHILS % (AUTO) 0.1 % (0-1); EOSINOPHILS # (AUTO) 0.2 X10'3 (0-0.9); EOSINOPHILS % (AUTO) 1.9 % (0-6); HEMATOCRIT 27.8 % (35.0-45.0); LYMPHOCYTES # (AUTO) 1.5 X10'3 (1.1-4.8); LYMPHOCYTES % (AUTO) 13.6 % (21-51); MEAN CORPUSCULAR HEMOGLOBIN 27.5 PG (27.0-31.0); MEAN CORPUSCULAR HGB CONC 32.5 g/dL (33.0-36.5); MEAN CORPUSCULAR VOLUME 84.6 FL (78-98); MEAN PLATELET VOLUME 8.8 FL (7.4-10.4); MONOCYTES % (AUTO) 9.4 % (2-12); NEUTROPHILS # (AUTO) 8.3 X10'3 (1.8-7.7); PLATELET COUNT 207 X10'3 (140-440); RED BLOOD COUNT 3.28 X10'6 (4.20-5.60); RED CELL DISTRIBUTION WIDTH 19.3 % (11.5-14.5); WHITE BLOOD COUNT 11.1 X10'3 (4.5-11.0)
[2021-12-13 03:02] LABS: ALANINE AMINOTRANSFERASE 23 U/L (12-78); ALBUMIN 1.6 G/DL (3.4-5.0); ALBUMIN/GLOBULIN RATIO 0.4 (1.1-1.5); ALKALINE PHOSPHATASE 59 IU/L (46-116); ANION GAP 8 (8-16); ASPARTATE AMINO TRANSFERASE 21 U/L (10-37); BILIRUBIN,TOTAL 0.4 MG/DL (0.1-1.0); BLOOD UREA NITROGEN 29 MG/DL (7-18); BUN/CREATININE RATIO 37.7 (6.6-38.0); CHLORIDE 107 MMOL/L (99-107); CREATININE 0.77 MG/DL (0.40-0.90); GLUCOSE 135 MG/DL (70-104); PREALBUMIN 12.3 MG/DL (19-36); SODIUM 142 MMOL/L (135-145); TOTAL CARBON DIOXIDE 26.7 MMOL/L (24-32); TOTAL PROTEIN 5.3 G/DL (6.4-8.2); eGFR 72 ML/MIN
[2021-12-13 03:04] LABS: POTASSIUM 2.7 MMOL/L (3.5-5.1)
[2021-12-13] MEDS: potassium Cl 20mEq/100mL bag 100 ML IV PRN ×3 (03:29→05:41)
[2021-12-13] MEDS: POTASSIUM BICARB 20meq eff tab 20 MEQ TABLET.EFF PO SCH (03:29)
[2021-12-13 03:49] LABS: PLATELET ESTIMATE NORMAL
[2021-12-13 03:50] LABS: ANISOCYTOSIS 2+
[2021-12-13 03:51] LABS: LARGE PLATELETS FEW; TEAR DROP CELLS FEW
[2021-12-13] MEDS: heparin, porcine 5000 units/ml vial SQ SCH ×2 (07:42→20:04)
[2021-12-13] MEDS: insulin glargine (Lantus) pen - multi-dose SQ SCH ×2 (07:46→20:16)
[2021-12-13] MEDS: famotidine 20mg tablet OGT SCH (07:47)
[2021-12-13] MEDS: lisinopril 20mg tablet PO SCH (07:48)
[2021-12-13] MEDS: mupirocin 2% ointment 22GM TP SCH ×2 (07:48→20:05)
[2021-12-13] MEDS: NYSTATIN CREAM - 30GM TUBE TP SCH ×2 (07:48→20:05)
[2021-12-13] MEDS: hydrocortisone sod succ/PF 100mg/2ml inj. IV SCH (07:49)
[2021-12-13] MEDS ORDERED: POTASSIUM BICARB 20meq eff tab 20 MEQ TABLET.EFF OGT ONE (08:05)
[2021-12-13] MEDS ORDERED: furosemide 40mg/4ml inj IV ONE (08:05)
[2021-12-13] MEDS ORDERED: lisinopril 20mg tablet PO ONE (08:25)
--- NOTE | 2021-12-13 11:24 | NUR ---
F/u 12/13: Pt currently breathing on own without support via trach per RN; tolerating TF at 35ml/hr w/ TF to advance to goal as tolerated today per running specialist. LBM 12/12 -250ml stool via rectal bag yesterday per RN w/ new bag visualized this AM during rounds. Pt -8.8kg this admit w/ -1.6L cumulative fluid balance; new EN recs below given updated needs off vent support and new wt. MD/RN notified of updated EN recs today. PALB 12.3 this AM down from 22.9 12/03 though likely impacted by past 7 days NPO vs trickle EN. Will continue to monitor for further nutrition intervention needs. Recommendations: 1. Continuous TF per MD using Vital AF at 65ml/hr goal to provide 1560ml volume/day, 1872 kcal, 117g protein, and 1265ml water 2. Additional 100mL water flush Q4H; monitor serum Na 3. PALB q /; Daily scaled wts 4. bowel care per rx 5. DM ed when appropriate following extubation and pt made aware of DM by physician; A1C 8.3% with no prior hx or home DM meds per EMR Addendum: 12/13/21 at [address] Amended: Links added.
--- NOTE | 2021-12-13 11:43 | NUR ---
TF Consult: addressed; see prior RD note. Addendum: 12/13/21 at [address] Amended: Links added.
[2021-12-13] MEDS: amLODIPine 5mg tablet PO SCH (11:48)
[2021-12-13 18:14] LABS: MAGNESIUM 1.7 MG/DL (1.5-2.4); POTASSIUM 3.1 MMOL/L (3.5-5.1)
--- NOTE | 2021-12-13 18:30 | NUR ---
Patient in room ICU 2040. I have received report from Jemal WILDER and had the opportunity to ask questions and assume patient care.
[2021-12-13] MEDS ORDERED: POTASSIUM BICARB 20meq eff tab 20 MEQ TABLET.EFF PO SCH (20:00)
[2021-12-14] VITALS (8 sets, daily range): BP systolic 146–198; BP diastolic 54–69
[2021-12-14] MEDS: piperacillin/tazo 4.5gm/100ml 100 ML IV SCH ×2 (01:09→07:26)
[2021-12-14] MEDS: insulin regular, human U-100 3ml vial - multi-dose SQ SCH (03:04)
[2021-12-14 03:17] LABS: BASOPHILS % (AUTO) 0.3 % (0-1); EOSINOPHILS # (AUTO) 0.4 X10'3 (0-0.9); HEMATOCRIT 29.9 % (35.0-45.0); HEMOGLOBIN 9.5 g/dl (12.0-16.0); LYMPHOCYTES # (AUTO) 1.7 X10'3 (1.1-4.8); LYMPHOCYTES % (AUTO) 13.5 % (21-51); MEAN CORPUSCULAR HEMOGLOBIN 26.7 PG (27.0-31.0); MEAN CORPUSCULAR HGB CONC 31.7 g/dL (33.0-36.5); MEAN CORPUSCULAR VOLUME 84.1 FL (78-98); MEAN PLATELET VOLUME 8.8 FL (7.4-10.4); MONOCYTES # (AUTO) 1.2 X10'3 (0-0.9); MONOCYTES % (AUTO) 9.7 % (2-12); NEUTROPHILS # (AUTO) 9.1 X10'3 (1.8-7.7); NEUTROPHILS % (AUTO) 73.5 % (42-75); PLATELET COUNT 222 X10'3 (140-440); RED BLOOD COUNT 3.56 X10'6 (4.20-5.60); RED CELL DISTRIBUTION WIDTH 19.2 % (11.5-14.5); WHITE BLOOD COUNT 12.4 X10'3 (4.5-11.0)
[2021-12-14 03:34] LABS: ALANINE AMINOTRANSFERASE 27 U/L (12-78); ALBUMIN 1.8 G/DL (3.4-5.0); ALBUMIN/GLOBULIN RATIO 0.5 (1.1-1.5); ALKALINE PHOSPHATASE 72 IU/L (46-116); ANION GAP 8 (8-16); ASPARTATE AMINO TRANSFERASE 24 U/L (10-37); BILIRUBIN,TOTAL 0.4 MG/DL (0.1-1.0); BLOOD UREA NITROGEN 31 MG/DL (7-18); BUN/CREATININE RATIO 37.3 (6.6-38.0); CALCIUM 8.3 MG/DL (8.5-10.1); CHLORIDE 108 MMOL/L (99-107); CREATININE 0.83 MG/DL (0.40-0.90); GLUCOSE 119 MG/DL (70-104); SODIUM 144 MMOL/L (135-145); TOTAL CARBON DIOXIDE 27.6 MMOL/L (24-32); TOTAL PROTEIN 5.7 G/DL (6.4-8.2); eGFR 66 ML/MIN
[2021-12-14 03:39] LABS: POTASSIUM 2.8 MMOL/L (3.5-5.1)
[2021-12-14] MEDS: potassium Cl 20mEq/100mL bag 100 ML IV PRN ×3 (03:53→11:56)
[2021-12-14] MEDS: hydrALAZINE 20mg/ml inj. IV PRN (04:35)
[2021-12-14] MEDS ORDERED: POTASSIUM BICARB 20meq eff tab 20 MEQ TABLET.EFF PO ONE (04:55)
[2021-12-14 05:18] LABS: MAGNESIUM 1.8 MG/DL (1.5-2.4)
[2021-12-14] MEDS ORDERED: potassium Cl 10 mEq/100mL bag IV SCH (06:40)
--- NOTE | 2021-12-14 06:43 | NUR ---
Problems reprioritized. Patient report given, questions answered & plan of care reviewed with Jemal WILDER.
[2021-12-14] MEDS ORDERED: magnesium 2GM in 50ml NS 50 ML IV ONE (06:45)
[2021-12-14] MEDS ORDERED: potassium Cl 20 mEq/100mL bag IV SCH (06:50)
[2021-12-14] MEDS: heparin, porcine 5000 units/ml vial SQ SCH (07:24)
[2021-12-14] MEDS: amLODIPine 5mg tablet PO SCH (07:25)
[2021-12-14] MEDS: famotidine 20mg tablet OGT SCH (07:26)
[2021-12-14] MEDS: hydrocortisone sod succ/PF 100mg/2ml inj. IV SCH (07:27)
[2021-12-14] MEDS: potassium Cl 20mEq/100mL bag 100 ML IV SCH ×2 (07:33→08:06)
[2021-12-14] MEDS: mupirocin 2% ointment 22GM TP SCH (07:34)
[2021-12-14] MEDS: NYSTATIN CREAM - 30GM TUBE TP SCH (07:34)
[2021-12-14] MEDS ORDERED: lisinopril 20mg tablet OGT SCH (08:00)
[2021-12-14] MEDS ORDERED: amLODIPine 5mg tablet OGT SCH (08:46)
--- NOTE | 2021-12-14 12:36 | NUR ---
Arrived on unit for assessment and per primary nurse, the pt is about to be picked up to go to [facility] in less than 30 minutes and deferred assessment. Pt's lower lip is noted to have small scab and no drainage and is greatly improved. Unable to perform full assessment due to being transferred to [facility] at this time. Addendum: 12/14/21 at 1238 by Jenniffer Simental RN Amended: Links added.
[2021-12-14 12:47] LABS: ALBUMIN 1.8 G/DL (3.4-5.0); ANION GAP 11 (8-16); BLOOD UREA NITROGEN 31 MG/DL (7-18); BUN/CREATININE RATIO 38.8 (6.6-38.0); CALCIUM 8.2 MG/DL (8.5-10.1); CHLORIDE 108 MMOL/L (99-107); GLUCOSE 181 MG/DL (70-104); POTASSIUM 3.9 MMOL/L (3.5-5.1); SODIUM 143 MMOL/L (135-145); TOTAL CARBON DIOXIDE 24.3 MMOL/L (24-32); eGFR 69 ML/MIN
[2021-12-14] MEDS ORDERED: Melatonin 3mg tablet PO SCH (21:00)
== END 2021-12-14 13:00 | DRG 4 ==
LOC: ER 09:04 → ED HOLD 13:51 → ICU 2S 14:27
PROVIDERS: ADMIT Psychiatry & Neurology Neurocritical Care; ATTEND Psychiatry & Neurology Neurocritical Care
PROC: 0T778DZ Dilation of Left Ureter with Intraluminal Device, Via Natural or Artificial Opening Endoscopic (ICD-10-PCS; 2021-11-18)
PROC: BT1F1ZZ Fluoroscopy of Left Kidney, Ureter and Bladder using Low Osmolar Contrast (ICD-10-PCS; 2021-11-18)
PROC: 0BH17EZ Insertion of Endotracheal Airway into Trachea, Via Natural or Artificial Opening (ICD-10-PCS; 2021-11-18)
PROC: 02HV33Z Insertion of Infusion Device into Superior Vena Cava, Percutaneous Approach (ICD-10-PCS; 2021-11-18)
PROC: B548ZZA Ultrasonography of Superior Vena Cava, Guidance (ICD-10-PCS; 2021-11-18)
PROC: 5A1955Z Respiratory Ventilation, Greater than 96 Consecutive Hours (ICD-10-PCS; principal; 2021-11-18 17:09)
PROC: 02HV33Z Insertion of Infusion Device into Superior Vena Cava, Percutaneous Approach (ICD-10-PCS; 2021-11-27)
PROC: B548ZZA Ultrasonography of Superior Vena Cava, Guidance (ICD-10-PCS; 2021-11-27)
PROC: 0B113F4 Bypass Trachea to Cutaneous with Tracheostomy Device, Percutaneous Approach (ICD-10-PCS; 2021-12-06)
PROC: 0DH64UZ Insertion of Feeding Device into Stomach, Percutaneous Endoscopic Approach (ICD-10-PCS; 2021-12-06)
PROC: B4201ZZ Computerized Tomography (CT Scan) of Abdominal Aorta using Low Osmolar Contrast (ICD-10-PCS; 2021-12-09)
PROC: B4241ZZ Computerized Tomography (CT Scan) of Superior Mesenteric Artery using Low Osmolar Contrast (ICD-10-PCS; 2021-12-09)
PROC: B4281ZZ Computerized Tomography (CT Scan) of Bilateral Renal Arteries using Low Osmolar Contrast (ICD-10-PCS; 2021-12-09)
PROC: B42C1ZZ Computerized Tomography (CT Scan) of Pelvic Arteries using Low Osmolar Contrast (ICD-10-PCS; 2021-12-09)
PROC: B42H1ZZ Computerized Tomography (CT Scan) of Bilateral Lower Extremity Arteries using Low Osmolar Contrast (ICD-10-PCS; 2021-12-09)
PROC: B4211ZZ Computerized Tomography (CT Scan) of Celiac Artery using Low Osmolar Contrast (ICD-10-PCS; 2021-12-09)
PROC: 0DHA0UZ Insertion of Feeding Device into Jejunum, Open Approach (ICD-10-PCS; 2021-12-09)
PROC: 0T9B70Z Drainage of Bladder with Drainage Device, Via Natural or Artificial Opening (ICD-10-PCS; 2021-12-09)
DX: A41.51 Sepsis due to Escherichia coli [E. coli] (principal); R65.21 Severe sepsis with septic shock; G93.41 Metabolic encephalopathy; J18.9 Pneumonia, unspecified organism; J80 Acute respiratory distress syndrome; J81.0 Acute pulmonary edema; K65.9 Peritonitis, unspecified; K63.1 Perforation of intestine (nontraumatic); N17.0 Acute kidney failure with tubular necrosis; E87.4 Mixed disorder of acid-base balance; J90 Pleural effusion, not elsewhere classified; J93.83 Other pneumothorax; K94.23 Gastrostomy malfunction; R71.0 Precipitous drop in hematocrit; N13.6 Pyonephrosis; I42.8 Other cardiomyopathies; Z20.822 Contact with and (suspected) exposure to COVID-19; R62.7 Adult failure to thrive; D69.6 Thrombocytopenia, unspecified; E86.0 Dehydration; E86.1 Hypovolemia; E87.6 Hypokalemia; E87.70 Fluid overload, unspecified; G70.9 Myoneural disorder, unspecified; S30.1XXA Contusion of abdominal wall, initial encounter; Y95 Nosocomial condition; R00.1 Bradycardia, unspecified; R19.7 Diarrhea, unspecified; Z90.710 Acquired absence of both cervix and uterus; Z90.49 Acquired absence of other specified parts of digestive tract; Z68.28 Body mass index [BMI] 28.0-28.9, adult; Z78.1 Physical restraint status
CPT/HCPCS: 36410; 36415; 36600; 70450; 71045; 71250; 74018; 74174; 74176; 74420; 76000; 80048; 80053; 80202; 80320; 81001; 81003; 82140; 82330; 82570; 82803; 82948; 83036; 83605; 83690; 83735; 83880; 84100; 84132; 84133; 84134; 84145; 84439; 84443; 84478; 84484; 84540; 85007; 85008; 85018; 85025; 85610; 85730; 86022; 86885; 86900; 86901; 86920; 87040; 87070; 87077; 87081; 87088; 87186; 87324; 87449; 87635; 93005; 93308; 94002; 94003; 94640; 94660; 94760; 94799; 96361; 96365; 96375; 96376; 97110; 97161; 97530; 99291; A4215; A4618; A6258; A6402; A6449; A7000; A7521; B4087; C1751; C1758; C1769; C2617; C9113; C9290; C9803; G0378; J0330; J0360; J0461; J0610; J0692; J0696; J1120; J1170; J1644; J1720; J1815; J1940; J2060; J2185; J2212; J2250; J2270; J2405; J2543; J2704; J2997; J3010; J3370; J3475; J3480; J3490; J7030; J7040; J7050; J7060; J7070; J7120; P9045; P9047; Q9963; Q9967; S0020